=== PATIENT | female | born 1935 | race Caucasian/White ===

== ENCOUNTER → 2018-12-27 | Outpatient (CLI) | payer MEDICARE ==
[2018-12-27 17:41] LABS: BACTERIA,URINE NEGATIVE /HPF; BILIRUBIN,URINE NEGATIVE (NEGATIVE); CLARITY,URINE CLEAR; COLOR,URINE YELLOW; GLUCOSE, URINE (UA) NEGATIVE (NEGATIVE); KETONES,URINE NEGATIVE (NEGATIVE); LEUKOCYTE ESTERASE ,URINE NEGATIVE (NEGATIVE); NITRITE,URINE NEGATIVE (NEGATIVE); PROTEIN,URINE NEGATIVE (NEGATIVE); SQUAMOUS EPITHELIAL CELL,UR 0-2 /HPF; UROBILINOGEN,URINE 0.2 MG/DL (NORMAL); WBC,URINE 0-2 /HPF
== END ==
LOC: LAB FS 16:42
PROVIDERS: ATTEND Family Medicine
DX: R30.0 Dysuria (principal)
CPT/HCPCS: 81000

== ENCOUNTER → 2019-07-04 | Outpatient (CLI) | payer MEDICARE ==
[2019-07-04 15:42] LABS: EOSINOPHILS % (AUTO) 5 % (0-10); HEMATOCRIT 41 % (35-52); HEMOGLOBIN 13.3 G/DL (11.5-16.0); LYMPHOCYTES % (AUTO) 29 % (12-44); MEAN CORPUSCULAR HEMOGLOBIN 30 PG (25-34); MEAN CORPUSCULAR HGB CONC 33 G/DL (32-36); MEAN CORPUSCULAR VOLUME 92 FL (80-99); MEAN PLATELET VOLUME 10.3 FL (7.4-10.4); MONOCYTES % (AUTO) 7 % (0-12); NEUTROPHILS % (AUTO) 58 % (42-75); PLATELET COUNT 169 10^3/uL (130-400); RED CELL DISTRIBUTION WIDTH 12.4 % (10.0-14.5); WHITE BLOOD COUNT 5.9 10^3/uL (4.3-11.0)
[2019-07-04 15:43] LABS: BASOPHILS # (AUTO) 0.1 10^3/uL (0.0-0.1); BASOPHILS % (AUTO) 1 % (0-10); EOSINOPHILS # (AUTO) 0.3 10^3/uL (0.0-0.3); LYMPHOCYTES # (AUTO) 1.7 X 10^3 (1.0-4.0); MONOCYTES # (AUTO) 0.4 X 10^3 (0.0-1.0); NEUTROPHILS # (AUTO) 3.4 X 10^3 (1.8-7.8)
[2019-07-04 15:49] LABS: INR 1.9 (0.8-1.4); PROTHROMBIN TIME PATIENT 22.9 SEC (12.2-14.7)
[2019-07-04 15:52] LABS: BAND NEUTROPHILS 2 %; BASOPHILS % (MANUAL) 1 %; EOSINOPHILS % (MANUAL) 3 %; LYMPHOCYTES % (MANUAL) 32 %; MONOCYTES % (MANUAL) 9 %; NEUTROPHILS % (MANUAL) 53 %
[2019-07-04 15:55] LABS: POTASSIUM 4.5 MMOL/L (3.6-5.0)
[2019-07-04 15:56] LABS: BILIRUBIN,TOTAL 0.4 MG/DL (0.1-1.0); CALCIUM 10.4 MG/DL (8.5-10.1); CREATININE SERUM 1.04 MG/DL (0.60-1.30); TOTAL PROTEIN 6.3 GM/DL (6.4-8.2)
== END ==
LOC: LAB FS 15:20
PROVIDERS: ATTEND Nurse Practitioner Family
DX: Z51.81 Encounter for therapeutic drug level monitoring (principal); I48.0 Paroxysmal atrial fibrillation; I42.0 Dilated cardiomyopathy; Z79.01 Long term (current) use of anticoagulants
CPT/HCPCS: 36415; 80053; 85007; 85027; 85610

== ENCOUNTER 2019-07-13 15:28 | Inpatient (IN) | payer MEDICARE ==
[~2019-07-13] VITALS: Ht 149.5 cm; Wt 71.5 kg
[~2019-07-13 15:28] MED LIST: ALPR0.254 PO; AMLO10TA7 PO; ASCO-262 PO; ATOR40TA70 PO; CRAN500T2 PO; ENOX60DI7 SC; FURO20TA4 PO; LISI40TA PO; MULT1TAB69 PO; OMG1KC PO; PANT40TA3 PO; POLY17PO6 PO; SPIR25TA5 PO; TRAM50TA3 PO; TRM50T PO; UBID1CAP53 PO; WARF-48 PO
[2019-07-13 15:45] VITALS: BP 106/66
--- NOTE | 2019-07-13 15:45 | NUR ---
BENJAMIN OSBORNE admitted to room 222-1, with an admitting diagnosis of SEPSIS AND ISCHEMIC BOWEL DISEASE on 07/13/[address] [facility] [address] via WHEELCHAIR, accompanied by STAFF. BENJAMIN OSBORNE introduced to surroundings, call light, bed controls, phone, TV, temperature control, lights, meal times, smoking policy, visitor policy, side rail policy, bathrooms and showers. Patient Rights given to patient in the handbook.BENJAMIN OSBORNE verbalizes understanding that [facility] is not responsible for the loss or damage to any personal effects or valuables that are kept in the patients posession during their hospitalization. The following Patient Care Plans were discussed with the PT: Discharge Planning, IMPAIRED MOBILITY, AND FALLS. BENJAMIN OSBORNE verbalizes understanding of Interdisciplinary Patient Education. Patient received Patient Rights Booklet, which includes Privacy Act Statement and Data Collection Information Summary. [place] INTACT RIGHT AC. DENIES PAIN. DAUGHTER SABINA WAS CALLED TO DO ADMISSION QUESTIONS BECAUSE PATIENT UNABLE TO.
--- NOTE | 2019-07-13 16:18 | Physical Therapy Evaluation ---
PT Evaluation-General Medical Diagnosis Admission Date Jul 13, 2019 at 15:50 Medical Diagnosis: Enteritis and gastritis Onset Date: Jul 09, 2019 Therapy Diagnosis Therapy Diagnosis: debility/weakness Precautions Precautions/Isolations: Standard Precautions Referral Physician: Yang Reason for Referral: Evaluation/Treatment Medical History Pertinent Medical History: Dementia, HTN Current History transferred to [facility] Reviewed History: Yes Social History Home: Single Level Current Living Status: Children (daughter) Entry Into Home: Stairs With Railing PT Steps Into Home: 3 Prior Prior Level of Function SCALE: Activities may be completed with or without assistive devices. 1-Wkkevyytbp-vudgtud completes the activity by him/herself with no assistance from a helper. 5-Set-up or Clean-up Assistance-helper sets up or cleans up; patient completes activity. [place] assists only prior to or following the activity. 4-Supervision or Touching Assistance-helper provides verbal cues and/or touching/steadying and/or contact guard assistance as patient completes activity. Assistance may be provided throughout the activity or intermittently. 3-Partial/Moderate Assistance-helper does LESS THAN HALF the effort. [place] li fts, holds or supports trunk or limbs, but provides less than half the effort. 2-Substantial/Maximal Assistance-helper does MORE THAN HALF the effort. [place] lifts or holds trunk or limbs and provides more than half the effort. 7-Bksppgdzb-gpsfhv does ALL the effort. Patient does none of the effort to complete the activity. Or, the assistance of 2 or more helpers is required for the patient to complete the activity. If activity was not attempted, code reason: 7-Patient Refused. 9-Not Applicable-not attempted and the patient did not perform the activity before the current illness, exacerbation or injury. 10-Not Attempted due to Environmental Limitations-(lack of equipment, weather restraints, etc.). 88-Not Attempted due to Medical Conditions or Safety Concerns. Bed Mobility: 6 Transfers (B,C,W/C): 5 Gait: 5 Stairs: 3 Indoor Mobility (Ambulation): Needed Some Help Stairs: Needed Some Help Prior Devices Use: Walker Prior Device Use: FWW daughter assist with all mobility per patient report PT Evaluation-Current Subjective Patient is very agreeable to participate with therapy. Pain Numeric Pain Scale: 0-No Pain Location: No Pain Reported Objective Patient Orientation: Person, Confused ROM/Strength ROM Lower Extremities bilateral LE WFL Strength Lower Extremities 4/5 grossly bilateral LE Integumentary/Posture Integumentary refer to nursing notes Bowel Incontinence: No Bladder Incontinence: Yes Posture kyphotic posture Neuromuscular (Tone, Coordination, Reflexes) grossly intact Sensory Vision: Wears Glasses Hearing: Impaired Sensation Right Lower Extremit: Intact Sensation Left Lower Extremity: Intact Transfers Roll Left to Right (QC): 5 Sit to Lying (QC): 5 Lying to Sitting/Side of Bed(Q: 5 Sit to Stand (QC): 4 Chair/Hwk-hu-Bezdb Xfer(QC): 4 Toilet Transfer: 4 Car Transfer (QC): 5 Gait Does the Patient Walk?: Yes Mode of Locomotion: Walk Anticipated Mode of Locomotion: Walk Walk 10 feet (QC): 5 Walk 50 ft with 2 Turns(QC): 5 Walk 150 ft (QC): 5 Walking 10ft/uneven surface-QC: 4 Distance: 300' x 1/100' x 1 Gait Assistive Device: FWW Comments/Gait Description slow, steady, functional gait sequence Wheelchair Training Does the Pt Use a Wheelchair?: No Stairs #of Steps: 2 1 Step (curb) (QC): 3 4 Steps (QC): 88 12 Steps (QC): 9 Walking Assistive Device: Walker Balance Sitting Static: Normal Sitting Dynamic: Normal Standing Static: Normal Standing Dynamic: Normal Picking up an Object (QC): 5 Assessment/Needs 84 y.o. female, will be seen short term by skilled PT to address functional strength and mobility to ensure safe return to home at maximum LOF. Rehab Potential: Fair PT Tie Loader Goals Usp Goals PT Usp Goals Time Frame: Jul 29, 2019 Roll Left & Right (QC): 6 Sit to Lying (QC): 6 Lying-Sitting on Side/Bed(QC): 6 Sit to Stand (QC): 5 Chair/Mcn-tz-Nywfr Xfer(QC): 5 Toilet Transfer (QC): 5 Car Transfer (QC): 6 Does the Patient Walk: Yes Walk 10 feet (QC): 5 Walk 50ft with 2 Turns (QC): 5 Walk 150 ft (QC): 5 Walking 10ft on Uneven Surface: 5 1 Step (curb) (QC): 4 4 Steps (QC): 4 12 Steps (QC): 9 Picking up an Object (QC): 5 PT Plan Problem List Problem List: Activity Tolerance, Functional Strength, Safety, Balance, Bed Mobility Treatment/Plan Treatment Plan: Continue Plan of Care Treatment Plan: Bed Mobility, Concurrent Therapy, Education, Functional Activity Mynor, Functional Strength, Group Therapy, Gait, Safety, Therapeutic Exercise, Transfers Treatment Duration: Jul 29, 2019 Frequency: At least 5 of 7 days/Wk (IRF) Estimated Hrs Per Day: 1.5 hours per day Patient and/or Family Agrees t: Yes Safety Risks/Education Patient Education: Steps Teaching Recipient: Patient Teaching Methods: Demonstration, Discussion Response to Teaching: Verbalize Understanding, Return Demonstration Discharge Recommendations Therapy Discharge Recommendati: Home & Family Time/GCodes Time In: 1545 Time Out: 1608 Total Billed Treatment Time: 23 Total Billed Treatment 1 visit EVMod 23 min ANUPAMA CROFT PT Jul 13, 2019 16:18
--- NOTE | 2019-07-13 16:22 | NUR ---
REVIEWED MED REC IT WAS REPORTED UPON ADMISSION TO 4TH FLOOR. NO CHANGES WERE MADE WHEN THE PATIENT DISCHARGED TO REHAB.
[2019-07-13 16:34] VITALS: BP 106/66
[2019-07-13] MEDS ORDERED: CALCIUM CARBONATE 500 MG (TUMS) TAB.CHEW PO PRN ×2 (18:15)
[2019-07-13] MEDS ORDERED: MELATONIN 3 MG TABLET PO PRN ×2 (18:15)
[2019-07-13] MEDS ORDERED: BISACODYL 10 MG SUPP (DULCOLAX) PR PRN ×2 (18:15)
[2019-07-13] MEDS ORDERED: LACTULOSE SYRUP 10GM/15ML (ENULOSE) 30ML UDC PO PRN ×2 (18:15)
[2019-07-13] MEDS ORDERED: FLEET ENEMA ADULT 1 EA BTL PR PRN (18:15)
[2019-07-13] MEDS ORDERED: diphenhydrAMINE 50 MG/ML INJ (BENADRYL) IVP PRN (18:15)
[2019-07-13] MEDS ORDERED: ONDANSETRON 4 MG/2 ML (SDV) Z0FRAN IV PRN (18:15)
[2019-07-13] MEDS ORDERED: DOCUSATE SODIUM 100 MG (COLACE) CAP PO PRN (18:15)
[2019-07-13] MEDS ORDERED: diphenhydrAMINE 25 MG TAB (BENADRYL) PO PRN (18:15)
[2019-07-13] MEDS ORDERED: METOCLOPRAMIDE INJ 10 MG/2 ML (REGLAN) IVP PRN (18:15)
[2019-07-13] MEDS ORDERED: ANTACID SUSP 30 ML UDC (MYLANTA) PO PRN (18:15)
[2019-07-13] MEDS ORDERED: CATHETER FLUSH 10 ML SYR IV PRN (18:15)
[2019-07-13] MEDS ORDERED: ONDANSETRON 4 MG (ZOFRAN) ORAL DISSOLVE TAB PO PRN (18:15)
[2019-07-13] MEDS ORDERED: morphine INJ 10 MG/ML 1ML (SYR OR VIAL) IV PRN (18:15)
[2019-07-13] MEDS ORDERED: LOPERAMIDE 2 MG (IMODIUM) TABLET PO PRN (18:15)
[2019-07-13] MEDS ORDERED: MILK OF MAGNESIA 400 MG/5 ML 30 ML UDC PO PRN (18:15)
[2019-07-13] MEDS ORDERED: guaiFENesin/CODEINE (ROBITUSSIN AC) 10ML UDC PO PRN (18:15)
[2019-07-13] MEDS ORDERED: ALPRAZolam 0.25 MG (XANAX) TAB PO PRN (18:15)
[2019-07-13] MEDS ORDERED: morphine INJ 4 MG/ML 1 ML (VIAL/SYRINGE) IV PRN (18:45)
[2019-07-13] MEDS ORDERED: warFARin 5 MG (COUMADIN) TAB PO NR (18:45)
--- NOTE | 2019-07-13 19:22 | NUR ---
bedside report received from NEHEMIAH BOLTON, assume care of pt
[2019-07-13] MEDS: ALPRAZolam 0.25 MG (XANAX) TAB PO SCH (20:04)
[2019-07-13] MEDS: DOCUSATE SODIUM 100 MG (COLACE) CAP PO SCH (20:05)
--- NOTE | 2019-07-13 20:05 | NUR ---
took meds without difficulty, took scheduled ultram 50mg, rates pain o/10 on numeric scale, up to bathroom with 1 person standby assist & walker, bed alarm on, side rails up x4
[2019-07-13] MEDS: SENNA W/DOCUSATE (SENOKOT S) TABLET PO SCH (20:06)
--- NOTE | 2019-07-13 20:55 | NUR ---
resting quietly in bed, pain level 0/10 on flacc scale
[2019-07-13] MEDS ORDERED: NON-FORMULARY MEDICATION 1 EA EA (Ascorbate Calcium (Vitamin C) 500 MG) PO SCH (21:00)
[2019-07-13] MEDS ORDERED: NON-FORMULARY MEDICATION 1 EA EA (Cranberry Extract (Cranberry) 500 MG) PO SCH (21:00)
[2019-07-13] MEDS ORDERED: DOCUSATE SODIUM 100 MG (COLACE) CAP PO SCH (21:00)
[2019-07-13] MEDS ORDERED: VIT E ACETATE PO SCH (21:00)
[2019-07-13] MEDS ORDERED: UBIDECARENONE PO SCH (21:00)
[2019-07-13] MEDS ORDERED: [UNRECOGNIZED DRUG - OTHER] PO SCH (21:00)
[2019-07-13] MEDS ORDERED: polyethylene glycoL POWDER 17 GM (MIRALAX) PACK PO SCH (21:00)
[2019-07-14] MEDS: ACETAMINOPHEN 325 MG TABLET PO PRN (01:03)
--- NOTE | 2019-07-14 01:03 | NUR ---
c/o lt ear pain level 5/10 on numeric scale, Tylenol 650mg given, advised to lie on other side for a while
--- NOTE | 2019-07-14 01:45 | NUR ---
resting quietly in bed, pain level 0/10 on flacc scale
[2019-07-14 05:06] VITALS: BP 124/69
[2019-07-14] MEDS: ASCORBIC ACID (VIT C) 500 MG TABLET PO SCH ×2 (06:46→17:14)
[2019-07-14 07:38] LABS: BASOPHILS % (AUTO) 0 % (0-10); EOSINOPHILS # (AUTO) 0.4 10^3/uL (0.0-0.3); EOSINOPHILS % (AUTO) 7 % (0-10); HEMATOCRIT 36 % (35-52); LYMPHOCYTES # (AUTO) 1.7 X 10^3 (1.0-4.0); LYMPHOCYTES % (AUTO) 31 % (12-44); MEAN CORPUSCULAR HEMOGLOBIN 30 PG (25-34); MEAN CORPUSCULAR HGB CONC 33 G/DL (32-36); MEAN CORPUSCULAR VOLUME 90 FL (80-99); MEAN PLATELET VOLUME 9.8 FL (7.4-10.4); MONOCYTES # (AUTO) 0.5 X 10^3 (0.0-1.0); MONOCYTES % (AUTO) 10 % (0-12); NEUTROPHILS # (AUTO) 2.8 X 10^3 (1.8-7.8); NEUTROPHILS % (AUTO) 52 % (42-75); PLATELET COUNT 128 10^3/uL (130-400); RED CELL DISTRIBUTION WIDTH 13.1 % (10.0-14.5); WHITE BLOOD COUNT 5.3 10^3/uL (4.3-11.0)
[2019-07-14 07:48] LABS: INR 1.1 (0.8-1.4); PROTHROMBIN TIME PATIENT 14.7 SEC (12.2-14.7)
[2019-07-14 07:56] LABS: ALANINE AMINOTRANSFERASE 41 U/L (0-55); ALBUMIN 3.1 GM/DL (3.2-4.5); ALKALINE PHOSPHATASE 60 U/L (40-136); BILIRUBIN,TOTAL 0.3 MG/DL (0.1-1.0); BUN/CREATININE RATIO 25; CALCIUM 9.2 MG/DL (8.5-10.1); CARBON DIOXIDE 25 MMOL/L (21-32); CHLORIDE 109 MMOL/L (98-107); CREATININE SERUM 0.76 MG/DL (0.60-1.30); GFR ESTIMATED > 60; GLUCOSE 97 MG/DL (70-105); SODIUM 139 MMOL/L (135-145)
--- NOTE | 2019-07-14 09:01 | Physical Therapy Daily Note ---
PT Daily Note-Current Subjective Patient in bed pre tx, agrees to PT, has no complaints of pain. Appearance Patient in restroom on toilet post tx, has nurse call, instructed to call nurse when done and to not get up by herself. Mental Status Patient Orientation: Person Transfers SCALE: Activities may be completed with or without assistive devices. 4-Cggeliyuxl-ceisxnr completes the activity by him/herself with no assistance from a helper. 5-Set-up or Clean-up Assistance-helper sets up or cleans up; patient completes activity. [place] assists only prior to or following the activity. 4-Supervision or Touching Assistance-helper provides verbal cues and/or touching/steadying and/or contact guard assistance as patient completes activity. Assistance may be provided throughout the activity or intermittently. 3-Partial/Moderate Assistance-helper does LESS THAN HALF the effort. [place] lifts, holds or supports trunk or limbs, but provides less than half the effort. 2-Substantial/Maximal Assistance-helper does MORE THAN HALF the effort. [place] lifts or holds trunk or limbs and provides more than half the effort. 8-Qvcbkqxgy-tyfful does ALL the effort. Patient does none of the effort to complete the activity. Or, the assistance of 2 or more helpers is required for the patient to complete the activity. If activity was not attempted, code reason: 7-Patient Refused. 9-Not Applicable-not attempted and the patient did not perform the activity before the current illness, exacerbation or injury. 10-Not Attempted due to Environmental Limitations-(lack of equipment, weather restraints, etc.). 88-Not Attempted due to Medical Conditions or Safety Concerns. Roll Left & Right (QC): 6 Lying to Sitting/Side of Bed(Q: 6 Sit to Stand (QC): 4 Chair/Pgn-dg-Kwuoj Xfer(QC): 4 SBA for sit to stand and transfers, cues for hand placement and positioning Gait Training Distance: 200', 120' Walk 10 feet (QC): 4 Walk 50 ft with 2 Turns(QC): 4 Walk 150 ft (QC): 4 Gait Assistive Device: FWW SBA, slow but steady ambulation, cues for direction Exercises Standing: Hip Abduction, Heel/toe raises, Marching, Mini squats Standing Reps: 15 LAQ alternating for 5 min NuStep Minutes: 15 NuStep Workload: 4 Treatments bed mobility and transfers, ambulation, LE strengthening Assessment Current Status: Fair Progress improving endurance PT Mcfp Goals Mcfp Goals PT Mcfp Goals Time Frame: Jul 29, 2019 Roll Left & Right (QC): 6 Sit to Lying (QC): 6 Lying-Sitting on Side/Bed(QC): 6 Sit to Stand (QC): 5 Chair/Rim-pl-Aeydd Xfer(QC): 5 Toilet Transfer (QC): 5 Car Transfer (QC): 6 Does the Patient Walk: Yes Walk 10 feet (QC): 5 Walk 50ft with 2 Turns (QC): 5 Walk 150 ft (QC): 5 Walking 10ft on Uneven Surface: 5 1 Step (curb) (QC): 4 4 Steps (QC): 4 12 Steps (QC): 9 Picking up an Object (QC): 5 PT Plan Problem List Problem List: Activity Tolerance, Functional Strength, Safety, Balance, Gait, Transfer, Bed Mobility Treatment/Plan Treatment Plan: Continue Plan of Care Treatment Plan: Bed Mobility, Concurrent Therapy, Education, Functional Activity Mynor, Functional Strength, Group Therapy, Gait, Safety, Therapeutic Exercise, Transfers Treatment Duration: Jul 29, 2019 Frequency: At least 5 of 7 days/Wk (IRF) Estimated Hrs Per Day: 1.5 hours per day Patient and/or Family Agrees t: Yes Safety Risks/Education Patient Education: Gait Training, Transfer Techniques, Correct Positioning, Safety Issues Teaching Recipient: Patient Teaching Methods: Demonstration, Discussion Response to Teaching: Reinforcement Needed Time/GCodes Time In: 0800 Time Out: 0900 Total Billed Treatment Time: 60 Total Billed Treatment 1 visit GT 20' EX 30' FA 10' CLAUDETTE VILLAFANA PT Jul 14, 2019 09:01
[2019-07-14] MEDS: MULTIVIT W/MINERALS TAB (THERAGRAN M) PO SCH (09:07)
[2019-07-14] MEDS: OMEGA 3 (FISH OIL) 1000 MG CAP PO SCH (09:07)
[2019-07-14] MEDS: lisINopril 40 MG (PRINIVIL) TABLET PO SCH (09:08)
[2019-07-14] MEDS: DOCUSATE SODIUM 100 MG (COLACE) CAP PO SCH ×2 (09:08→20:36)
[2019-07-14] MEDS: PANTOPRAZOLE 40 MG (PROTONIX) TAB PO SCH (09:08)
[2019-07-14] MEDS: SENNA W/DOCUSATE (SENOKOT S) TABLET PO SCH ×2 (09:08→20:36)
[2019-07-14] MEDS: FUROSEMIDE 20 MG (LASIX) TAB PO SCH (09:08)
[2019-07-14] MEDS: SPIRONOLACTONE 25 MG (ALDACTONE) TAB PO SCH (09:09)
[2019-07-14] MEDS: polyethylene glycoL POWDER 17 GM (MIRALAX) PACK PO SCH (09:09)
--- NOTE | 2019-07-14 09:46 | PM&R Post Admission Assessment ---
PM&R HP Date of Visit: Jul 14, 2019 Time of Visit: 12:00 History of Present Illness Chief complaint: Debility with myopathy History of present illness: This is an 84-year-old white female clinic patient of [facility] who was admitted for abdominal pain and sepsis placed on empiric antibiotics of meropenem due to allergy list in general surgery was consulted who placed her nothing by mouth and provided supportive care. Patient underwent EGD and colonoscopy which were all within normal limits. Coumadin was restarted and Lovenox was initiated for bridging until INR therapeutic. Patient with significant weakness and lives at home with daughter so she is requiring structured physical therapy in order to regain enough ADLs and ambulation in order to return home with daughter. Per EGD/Colon report: The patient tolerated the procedure well. We feel that most likely etiology of her symptoms was some form of viral illness causing nausea as well as enteritis and abdominal pain and also significant nausea; however, she had difficulty with vomiting due to her previous antireflux procedure. Since being admitted and IV hydrated and placed on antibiotics as well as a PPI acid roading engineer, she has improved. We will advance her diet as tolerated and we will also recommend taking PPI acid roading engineer daily. Past Akspikc-Chfdvl-Anzoxt Hx Past Med/Social Hx: Reviewed Nursing Past Med/Soc Hx, Reviewed and Corrections made Patient Social History Marrital Status: single Employed/Student: retired Alcohol Use: Denies Use Recreational Drug Use: No Smoking Status: Never a Smoker 2nd Hand Smoke Exposure: No Physical Abuse Screen: No Sexual Abuse: No Recent Foreign Travel: No Contact w/other who traveled: No Recent Hopitalizations: Yes (ISCHEMIC BOWEL 1-20) Recent Infectious Disease Expo: No Immunizations Up To Date Tetanus Booster (TDap): Less than 5yrs Pediatric: Yes Date of Pneumonia Vaccine: Jul 13, 2014 Date of Influenza Vaccine: Mar 14, 2020 Seasonal Allergies Seasonal Allergies: Yes (pollen) Past Medical History Surgeries: Hysterectomy Currently Using CPAP: No Currently Using BIPAP: No Cardiac: High Cholesterol, Hypertension Neurological: Dementia : No Reproductive: Yes (hysterectomy 34 years ago) Sexually Transmitted Disease: No HIV/AIDS: No Genitourinary: Bladder Infection Gastrointestinal: Colitis ischemic bowel disease Musculoskeletal: Degenerate Disk Disease, Arthritis Loss of Vision: Bilateral Hearing Impairment: Hard of Hearing Did You Recieve Any Treatments: No History of Blood Disorders: Yes (patient is on Coumadin because of ischemic bowel disease and arterial embol) Family History FH: breast cancer DAUGHTER FH: lung cancer 19 MOTHER FH: skin cancer G8 BROTHER Myocardial infarction 19 FATHER Heart Disease, Cancer Prior Level of Function Bed Mobility: 6 Transfers: 5 Gait: 5 Stairs: 3 Indoor Mobility (Ambulation): Needed Some Help Stairs: Needed Some Help Prior Devices Use: Walker FWW Current Level of Fuctioning Roll Left to Right: 6 Sit to Lyin Lying to Sitting/Side of Bed: 6 Sit to Stand: 4 Chair/Xli-xj-Surte Xfer: 4 Car Transfer: 5 Does the Patient Walk: Yes Mode of Locomotion: Walk Anticipated Mode of Locomotion: Walk Walk 10 feet: 4 Walk 50 ft with 2 Turns: 4 Walk 150 ft: 4 Walking 10ft on uneven surface: 4 Gait Assistive Device: FWW Does the Pt Use a Wheelchair: No #of Steps: 2 1 Step (curb): 3 4 Steps: 88 Walking Assistive Device: Walker 12 Steps: 9 Picking up an Object: 5 PM&R Allergy/Meds/Data Review Allergies Coded Allergies: Penicillins (Unverified Allergy, Unknown, 07/14/19) Sulfa (Sulfonamide Antibiotics) (Unverified Allergy, Unknown, 07/14/19) celecoxib (Verified Allergy, Unknown, 07/09/19) tetracycline (Unverified Allergy, Unknown, 07/14/19) Home Medications Scheduled Alprazolam (Alprazolam), 0.25 MG PO HS, (Reported) Amlodipine Besylate (Amlodipine Besylate), 10 MG PO 1800, (Reported) Ascorbate Calcium (Vitamin C), 500 MG PO BID, (Reported) Atorvastatin Calcium (Atorvastatin Calcium), 40 MG PO DAILY, (Reported) Cranberry Extract (Cranberry), 500 MG PO BID, (Reported) Furosemide (Furosemide), 20 MG PO DAILY, (Reported) Lisinopril (Lisinopril), 40 MG PO DAILY, (Reported) Multivitamin (Multivitamins), 1 TAB PO DAILY, (Reported) Barton 3 Polyunsat Fatty Acids (Fish Oil 1,000 mg Capsule), 1,000 MG PO DAILY, (Reported) Pantoprazole Sodium (Pantoprazole Sodium), 40 MG PO DAILY, (Reported) Polyethylene Glycol 3350 (Miralax), 17 GM PO DAILY, (Reported) Spironolactone (Spironolactone), 12.5 MG PO DAILY, (Reported) Tramadol HCl (Tramadol HCl), 50 MG PO TID, (Reported) Ubidecarenone/Vit E Acetate (Co Q-10 100 mg Softgel), 100 MG PO BID, (Reported) Warfarin Sodium (Warfarin Sodium), 5 MG PO 1800, (Reported) Scheduled PRN Tramadol HCl (Tramadol HCl), 50 MG PO DAILY PRN for PAIN-MODERATE (5-7), (Reported) Current Medications Current Medications Reviewed Laboratory Data Laboratory Tests 07/14/19 07:25: White Blood Count 5.3, Red Blood Count 4.02L, Hemoglobin 12.0, Hematocrit 36, Mean Corpuscular Volume 90, Mean Corpuscular Hemoglobin 30, Mean Corpuscular Hemoglobin Concent 33, Red Cell Distribution Width 13.1, Platelet Count 128L, Mean Platelet Volume 9.8, Neutrophils (%) (Auto) 52, Lymphocytes (%) (Auto) 31, Monocytes (%) (Auto) 10, Eosinophils (%) (Auto) 7, Basophils (%) (Auto) 0, Neutrophils # (Auto) 2.8, Lymphocytes # (Auto) 1.7, Monocytes # (Auto) 0.5, Eosinophils # (Auto) 0.4H, Basophils # (Auto) 0.0, Prothrombin Time 14.7, INR Comment 1.1, Sodium Level 139, Potassium Level 4.0, Chloride Level 109H, Carbon Dioxide Level 25, Anion Gap 5, Blood Urea Nitrogen 19H, Creatinine 0.76, Estimat Glomerular Filtration Rate > 60, BUN/Creatinine Ratio 25, Glucose Level 97, Calcium Level 9.2, Corrected Calcium 9.9, Total Bilirubin 0.3, Aspartate Amino Transf (AST/SGOT) 48H, Alanine Aminotransferase (ALT/SGPT) 41, Alkaline Phosphatase 60, Total Protein 5.0L, Albumin 3.1L Review of Systems Constitutional: see HPI, malaise, weakness Psychiatric/Neurological: Anxiety, Depressed, Weakness Physical Exam Physical Exam Vital Signs Vital Signs - First Documented 07/13/19 15:45 Temp 37.8 Pulse 71 Resp 20 B/P (MAP) 106/66 (79) Pulse Ox 96 O2 Delivery Room Air Capillary Refill : Less Than 3 Seconds Height, Weight, BMI Height: '" Weight: lbs. oz. kg; 28.14 BMI Method: General Appearance: No Apparent Distress, WD/WN, Chronically ill, Thin, Other (frail) Eyes: Bilateral Eye Normal Inspection, Bilateral Eye PERRL HEENT: PERRL/EOMI, Normal ENT Inspection, Pharynx Normal Neck: Full Range of Motion, Normal Inspection, Non Tender, Supple, Carotid Bruit Respiratory: Chest Non Tender, Lungs Clear, Normal Breath Sounds, No Accessory Muscle Use, No Respiratory Distress Cardiovascular: Regular Rate, Rhythm, No Edema, No Gallop, No JVD, No Murmur, Normal Peripheral Pulses Gastrointestinal: Normal Bowel Sounds, No Organomegaly, No Pulsatile Mass, Non Tender, Soft Back: Normal Inspection, No CVA Tenderness, No Vertebral Tenderness Extremity: Normal Capillary Refill, Normal Inspection, Normal Range of Motion, Non Tender, No Calf Tenderness, No Pedal Edema Neurologic/Psychiatric: Alert, Oriented x3, No Motor/Sensory Deficits, Normal Mood/Affect, emergency room physician II-XII Norm as Tested, Disoriented (subtle), Motor Weakness (generalized weakness all extremities) Skin: Normal Color, Warm/Dry Lymphatic: No Adenopathy PM&R Medical Assessment & Plan REHAB/MEDICAL ASSESSMENT AND PLAN: REHAB IMPAIRMENT GROUP: Debility ETIOLOGIC DIAGNOSIS: Debility with ischemic bowel The comorbidities that impact the patients function and/or functional outcome by: Advanced age, frail status, fall risk, Coumadin anticoagulation therapeutic yet requiring Lovenox bridge REHAB PLAN: The patient is being admitted to our comprehensive inpatient rehabilitation facility and can tolerate the intensity of service consisting of at least: 180 minutes of therapy a day, 5 out of 7 days a week Rehab treatment will consist of: PT and OT and speech therapy will focus on regaining enough independent ADLs and ambulation in order to return home with daughter The patient/family has a good understanding of our discharge process and will benefit from an interdisciplinary inpatient rehabilitation program. The patient has potential to make improvement and is in need of at least two of the following multidisciplinary therapies including but not limited to physical, occupational, speech, and prosthetics and orthotics. Additionally the patient will need services from respiratory, nutritional services, wound care, psychology, etc. (Customize this to each patient). Given the patients complex condition and risk of further medical complications, rehabilitation services cannot be safely or effectively provided at a lower level of care such as a [facility] facility. BARRIERS TO DISCHARGE: Dementia ESTIMATED LOS: 7 days DISPOSITION: Home with daughter RELEVANT CHANGES SINCE PREADMISSION SCREENING: I have compared the patients medical and functional status at the time of the preadmission screening and there are: no changes PROGNOSIS: Good REHABILITATION GOALS: 1. PT and OT and ST will focus on regaining enough ADLs and ambulation order return home to prior level of functioning All the above goals were reviewed with the patient and he/she is in agreement. By signing this document, I acknowledge that I have personally performed a full physical examination on this patient within 24 hours of admission to this [facility] and have determined the patient to be able to tolerate the above course of treatment at an intensive level for a reasonable period of time. I will be completing a detailed individualized Plan of Care for this patient by day #4 of the patients stay based upon the Preadmission Screen, the Post-Admission Evaluation, and the therapy evaluations. Admission Dx/Comorbidities: (1) Myopathy ICD Codes: G72.9 - Myopathy, unspecified (2) Ischemic bowel disease Status: Acute ICD Codes: K55.9 - Vascular disorder of intestine, unspecified (3) Dementia Status: Acute ICD Codes: F03.90 - Unspecified dementia without behavioral disturbance (4) Warfarin prescribed at discharge ICD Codes: Z78.9 - Other specified health status ROBERT WEBSTER DO Jul 14, 2019 09:45
[2019-07-14] MEDS: RT-ALBUTEROL SULF 2.5 MG/3 ML PRE-MIX VIAL INH SCH ×2 (09:56→19:47)
--- NOTE | 2019-07-14 10:16 | Occupational Therapy Eval ---
OT Evaluation-General/PLF Medical Diagnosis Admission Date Jul 13, 2019 at 15:50 Medical Diagnosis: Enteritis and gastritis Onset Date: Jul 09, 2019 Therapy Diagnosis Therapy Diagnosis: Decreased ADL function/ debility Precautions Precautions/Isolations: Fall Prevention, Standard Precautions Safety Interventions: Bed Exit Alarm, Reorient-PRN Weight Bear Status Weight Bearing Restriction: Weight Bearing/Tolerated Referral Physician: Yang Referral Reason: Activity Tolerance, Self Care, Evaluation/Treatment, Strengthening/ROM Medical History Pertinent Medical History: Arthritis, Dementia, HTN Additional Medical History dementia, HTN, DDD, bilateral vision loss, [place] arthritis Current History Pt has ischemic bowel and sepsis, pt states she isn't sure what is going on with her. Pt requires education for dx. Reviewed History: Yes Social History Home: Single Level Current Living Status: Children (daughter) Entry Into Home: Stairs With Railing Steps Into Home: 3 ADL-Prior Level of Function SCALE: Activities may be completed with or without assistive devices. 9-Ouelgzmfzo-weqeava completes the activity by him/herself with no assistance from a helper. 5-Set-up or Clean-up Assistance-helper sets up or cleans up; patient completes activity. [place] assists only prior to or following the activity. 4-Supervision or Touching Assistance-helper provides verbal cues and/or touching/steadying and/or contact guard assistance as patient completes activity. Assistance may be provided throughout the activity or intermittently. 3-Partial/Moderate Assistance-helper does LESS THAN HALF the effort. [place] lifts, holds or supports trunk or limbs, but provides less than half the effort. 2-Substantial/Maximal Assistance-helper does MORE THAN HALF the effort. [place] lifts or holds trunk or limbs and provides more than half the effort. 4-Vbadmvkkb-pryney does ALL the effort. Patient does none of the effort to complete the activity. Or, the assistance of 2 or more helpers is required for the patient to complete the activity. If activity was not attempted, code reason: 7-Patient Refused. 9-Not Applicable-not attempted and the patient did not perform the activity before the current illness, exacerbation or injury. 10-Not Attempted due to Environmental Limitations-(lack of equipment, weather restraints, etc.). 88-Not Attempted due to Medical Conditions or Safety Concerns. ADL PLOF Comments Pt states she has lived with daughter for "awhile," daughter assists with hooking bra, shower transfers, showering tasks, and IADLs. Self Care: Needed Some Help Functional Cognition: Needed Some Help DME/Equipment: Bath Bench, Grab Bars, Tub/Shower, Toilet/Riser DME/Equipment Comments Pt states she goes to her own home for shower tasks as daughter does not have shower. Pt states she has tub/ shower with grab bars and bench. Pt states at daughters home she has high rise toilet with arm rests. Utilizes 2WW at home. Occupation: retired Drive Self: No Leisure Interests: TV, wathcing children (daughter babysits) OT Current Status Subjective Pt denies pain, agreeable to OT tx session. Pt states she has been feeling very weak/ tired, requires explanation from nursing for dx. Pt states understanding, states no pain but some confusion. Mental Status/Objective Patient Orientation: Person, Situation Current Glasses/Contacts: Yes Hearing Aids: No Dentures/Partials: No Hand Dominance: Right Upper Extremity ROM WFL BUE, limited to 90* flexion,. Upper Extremity Coordination WFL, increased time Upper Extremity Sensation WFL Upper Extremity Strength Decreased bilaterally. Edema: BLE slight edema. ADL-Treatment Eating (QC): 6 Oral Hygiene (QC): 5 Shower/Bathe Self (QC): 4 (SBA/ s/u for sponge bath tasks. Pt able to complete all areas with thoroughness) Upper Body Dressing (QC): 5 Lower Body Dressing (QC): 4 (Pt completes with SBA/ CGA in stance.) On/Off Footwear (QC): 6 (IND in recliner chair.) Toileting Hygiene (QC): 4 (CGA in stance with walker) Other Treatments Pt agreeable to OT eval/ treat. Pt completes history, increased time needed. Pt demonstrates slight confusion with some questions, states her memory is poor. Pt educated on dx and effects on memory. Pt repeats self at times through session. Pt completes UE movement, states min pain in R shoulder during flexion. OT role and ARU expectations explained, pt nods in understanding. Pt completes sponge bath/ dressing in ARU clothes in recliner chair with s/u, SBA/ CGA. Pt sit to stands with SBA to walker. Pt completes oral hygiene in chair with s/u. Pt states no issues with eating, able to bring drink/ straw to mouth. Pt problem solves through sock donning and other obstacles within environment with success. Pt eduated on HEP/ theraband exercise, pt completes 5 reps of 3/5 exercises with demonstration and mod cues for positioning. Pt has decreased strength/ endurance. Pt requires min cues for directionality during ambulation to gym, pt walks with SBA. Pt completes 5 min on arm bike with min resistance, no breaks needed. Pt returns to room, utilizes bathroom. Pt has difficulty describing home lay-out, able to state agreement/ not with items within bathroom. Pt returns to recliner chair, pt educated on use of call light / TV remote. Pt agrees, states she needs a reminder to tell daughter to bring clothes. Pt given piece of paper for note writing. Pt left in recliner, all needs met, call light in reach. Education OT Patient Education: Exercise program, Home exercise program, Modified ADL techniques, Progress toward Goal/Update tx plan, Purpose of tx/functional activities, Rehab process, Safety issues Teaching Recipient: Patient Teaching Methods: Demonstration, Discussion Response to Teaching: Verbalize Understanding, Return Demonstration, Reinforcement Needed OT Short Term Goals Short Term Goals Toileting hygiene: 5 Upper body dressin OT Fabrication Machine Operator Goals Fabrication Machine Operator Goals Eating (QC): 6 Oral Hygiene (QC): 6 Toileting Hygiene (QC): 6 Shower/Bathe Self (QC): 4 Upper Body Dressing (QC): 6 Lower Body Dressing (QC): 6 On/Off Footwear (QC): 6 Additional Goals: 1-Demonstrate ADL Tasks, 2-Verbalize Understanding, 3- ImproveStrength/Mynor 1=Demonstrate adherence to instructed precautions during ADL tasks. 2=Patient will verbalize/demonstrate understanding of assistive devices/modifications for ADL. 3=Patient will improve strength/tolerance for activity to enable patient to perform ADL's. OT Education/Plan Problem List/Assessment Assessment: Decreased Activ Tolerance, Decreased UE Strength, Impaired Cognition, Impaired I ADL's, Impaired Self-Care Skills Discharge Recommendations Plan/Recommendations: Continue POC Therapy Discharge Recommendati: Home & Family Treatment Plan/Plan of Care Treatment,Training & Education: Yes Patient would benefit from OT for education, treatment and training to promote independence in ADL's, mobility, safety and/or upper extremity function for ADL's. Plan of Care: ADL Retraining, Caregiver Training, Cognitive Retraining, Functional Mobility, Group Exercise/Act as Ind, UE Funct Exercise/Act Treatment Duration: Jul 28, 2019 Frequency: At least 5 of 7 days/Wk (IRF) Estimated Hrs Per Day: 1.5 hours per day Agreement: Yes Rehab Potential: Fair Time/GCodes Start Time: 09:00 Stop Time: 10:30 Total Time Billed (hr/min): 90 Billed Treatment Time 1, EVM (15), ADL 4 (60), EX (15)= 90 ALBERTO CALIXTO OTR Jul 14, 2019 10:16
[2019-07-14] MEDS: ENOXAPARIN 60 MG/0.6 ML (LOVENOX) SYR SC SCH ×2 (11:52→20:35)
--- NOTE | 2019-07-14 13:26 | ST Cognitive Linguistic Eval ---
Speech Evaluation-General Medical Diagnosis Enteritis and gastritis Onset Date: Jul 09, 2019 Therapy Diagnosis Therapy Diagnosis: Cognitive-communication Referral Referring Physician: Dr. Soria Reason for Referral: Evaluation/Treatment Medical History Pertinent Medical History: Arthritis, Dementia, HTN Reviewed History: Yes Social History Current Living Status: Children (daughter) Speech PLF-Current Status Prior Level of Function Patient reports that she lives at home with her daughter where she takes care of medications and bills. Subjective Patient was alert and cooperative for all evaluation tasks. Patient reported that she is feeling a little confused today. Patient was sitting upright in her chair for the duration of the evaluation. Language Eval: Auditory Comprehends Simple Yes/No Ques: Functional Indent/Objects Multiple Haines: Functional Ident/Pics in Multiple Haines: Functional Follows 1-Step Commands: Functional Follows Complex Directions: Mild Follows General Conversations: Functional Language Eval: Verbal Language Completes Spontaneous Greeting: Functional Produces Auto, Serial Info: Mild Imitates Simple Words/Phrases: Functional Word Finding: Mild Requests Basic Needs: Functional States Basic Personal Info: Functional Expresses Complex Ideas: Mild Objective Cognitive Domain Attention: Mild Memory: Moderate Problem Solving: Moderate Executive Functions: Mild Visuospatial Skills: WNL Composite Severity Rating: Moderate Clock Drawing Severity Rating: WNL Objective Formal/Standardized Tests [facility] Mental Status (UMS) Examination was administered. Results The patient was administered the SLUMS and scored 18/30 which falls within the moderate level of cognitive function. Oral Motor/Speech Production Within functional limits. Impression Patient was admitted to the ARU s/p gastritis. Patient was administered the SLUMS and scored 18/30 which is within the moderate level of cognitive deficits. Patient reports that she has been confused upon entering the hospital and would benefit from receiving skilled ST therapy. Patient will receive skilled ST therapy to address deficits in the areas of problem-solving, memory, and safety awareness to promote safety in ADL's and communicating wants/needs. Speech Patient Assess Expression of Ideas/Wants: Exhibits (3) Understanding Verbal Content: Usually Understands (3) Brief Interview-Mental Status: Yes Repetition of Three Words: Three (3) Temporal Orientation: Year: Correct (3) Temporal Orientation: Month: Accurate within 5 days(2) Temporal Orientation: Day: Incorrect or No Answer(0) Recall : Wear to say "Sock": Yes,after cueing (1) Recall : Color: No, could not recall (0) Recall : Bed: No, could not recall (0) Memory/Recall Ability: Current season, That he or she is in a hsp/hsp unit Speech Short Term Goals Short Term Goals Short Term Goals 1. Patient will complete memory tasks with 90% accuracy with minimal cues. 2. Patient will complete problem-solving tasks with 90% accuracy with minimal cues. 3. Patient will complete safety awareness tasks with 90% accuracy with minimal cues. Speech [place] Clerk Goals [place] Clerk Goals Patient will improve cognitive-communication necessary for safety and daily living tasks with minimal assist. Speech-Plan Patient/Family Goals Patient/Family Goals: Patient reported that she wishes to return home to previous level of independence and mobility. Treatment Plan Speech Therapy Treatment Plan: Continue Plan of Care Treatment Duration: Jul 21, 2019 Frequency: 5 times per week Estimated Hrs Per Day: .5 hour per day Rehab Potential: Fair Barriers to Learning: Moderate cognitive deficits Pt/Family Agrees to Plan: Yes Safety Risks/Education Teaching Recipient: Patient Teaching Methods: Demonstration, Discussion Response to Teaching: Verbalize Understanding, Reinforcement Needed Education Topics Provided: Patient was educated on evaluation tasks and the benefits of skilled ST therapy in the ARU. Time Speech Therapy Time In: 10:45 Speech Therapy Time Out: 11:00 Total Billed Time: 15 Billed Treatment Time 1, LILY Harrison Jul 14, 2019 13:26
--- NOTE | 2019-07-14 13:26 | Physical Therapy Daily Note ---
PT Daily Note-Current Subjective Patient in recliner pre tx, agrees to PT, has no complaints of pain. Appearance Patient in restroom on toilet post tx, has nurse call, instructed to call nurse when done. Mental Status Patient Orientation: Person, Place Transfers SCALE: Activities may be completed with or without assistive devices. 5-Vsmibnuwzd-esdynde completes the activity by him/herself with no assistance from a helper. 5-Set-up or Clean-up Assistance-helper sets up or cleans up; patient completes activity. [place] assists only prior to or following the activity. 4-Supervision or Touching Assistance-helper provides verbal cues and/or touching/steadying and/or contact guard assistance as patient completes activity. Assistance may be provided throughout the activity or intermittently. 3-Partial/Moderate Assistance-helper does LESS THAN HALF the effort. [place] lifts, holds or supports trunk or limbs, but provides less than half the effort. 2-Substantial/Maximal Assistance-helper does MORE THAN HALF the effort. [place] lifts or holds trunk or limbs and provides more than half the effort. 9-Esmvpyocp-ayeqyo does ALL the effort. Patient does none of the effort to complete the activity. Or, the assistance of 2 or more helpers is required for the patient to complete the activity. If activity was not attempted, code reason: 7-Patient Refused. 9-Not Applicable-not attempted and the patient did not perform the activity before the current illness, exacerbation or injury. 10-Not Attempted due to Environmental Limitations-(lack of equipment, weather restraints, etc.). 88-Not Attempted due to Medical Conditions or Safety Concerns. Sit to Stand (QC): 4 Chair/Xiu-rr-Wsrgd Xfer(QC): 4 SBA, cues for hand placement, tends to stand without using armrests. Gait Training Distance: 200', 120' Walk 10 feet (QC): 4 Walk 50 ft with 2 Turns(QC): 4 Walk 150 ft (QC): 4 Gait Persons Needed: 1 Gait Assistive Device: FWW SBA, slow, fatigues quickly. Exercises sit to stand 2 sets of 5, sidestepping at parallel bars 8'x4 Treatments ambulation, transfers, LE exercise Assessment Current Status: Fair Progress needs cues for hand placement and safety, slow movement, fatigues quickly PT Fci Goals Fci Goals PT Senior Underwriter Goals Time Frame: Jul 29, 2019 Roll Left & Right (QC): 6 Sit to Lying (QC): 6 Lying-Sitting on Side/Bed(QC): 6 Sit to Stand (QC): 5 Chair/Veu-le-Dlkut Xfer(QC): 5 Toilet Transfer (QC): 5 Car Transfer (QC): 6 Does the Patient Walk: Yes Walk 10 feet (QC): 5 Walk 50ft with 2 Turns (QC): 5 Walk 150 ft (QC): 5 Walking 10ft on Uneven Surface: 5 1 Step (curb) (QC): 4 4 Steps (QC): 4 12 Steps (QC): 9 Picking up an Object (QC): 5 PT Plan Problem List Problem List: Activity Tolerance, Functional Strength, Safety, Balance, Gait, Transfer, Bed Mobility, ROM Treatment/Plan Treatment Plan: Continue Plan of Care Treatment Plan: Bed Mobility, Concurrent Therapy, Education, Functional Activity Mynor, Functional Strength, Group Therapy, Gait, Safety, Therapeutic Exercise, Transfers Treatment Duration: Jul 29, 2019 Frequency: At least 5 of 7 days/Wk (IRF) Estimated Hrs Per Day: 1.5 hours per day Patient and/or Family Agrees t: Yes Safety Risks/Education Patient Education: Gait Training, Transfer Techniques, Correct Positioning, Safety Issues Teaching Recipient: Patient Teaching Methods: Demonstration, Discussion Response to Teaching: Reinforcement Needed Time/GCodes Time In: 1300 Time Out: 1330 Total Billed Treatment Time: 30 Total Billed Treatment 1 visit EX 10' GT 20' CLAUDETTE VILLAFANA PT Jul 14, 2019 13:25
--- NOTE | 2019-07-14 15:15 | NUR ---
RD ASSESSMENT PMHx: hypercholesterolemia; HTN; arthritis PT INTERACTION: Pt was awake and pleasant during nutrition assessment. Pt states current appetite is poor and that her appetite is usually poor at home. Note avg PO intake of 100% s5mveui, per chart review. Pt states following a regular diet at home, and has no issues with chewing/swallowing food. Pt states no recent issues with n/v at this time. Pt states recent issues with constipation, and that she is unsure of when her last BM was. Note pt currently on bowel regimen of miralax qd; senna BID; and colace BID, per chart review. Pt states recent wt loss, but unsure of amount/timeframe. She states "it's just a little bit." Note unable to determine recent wt hx, per chart review. Note abnormal lab values for protein and albumin, per chart review. ABNORMAL NUTRITION-RELATED LAB VALUES LOW: Pro 5.0; alb 3.1 HIGH: Cl 109; BUN 19; AST 48 Est. kcal needs: 3014-0422 kcal | 20-25 kcal/kg Est. Pro needs: 67-81 g Pro | 1.0-1.2 g Pro/kg PES STATEMENT: Altered nutrition-related lab values - Protein (NC-2.2) related to inadequate protein intake as evidenced by Pro 5.0 INTERVENTION: Continue with current diet order of Regular diet. Add Ensure HP (vary) to meals BID, for increased protein intake. Provides 160 kcal and 16 g Pro per serving. Will continue to follow and reassess as pt needs and status change. MONITOR/EVALUATE: PO Intake; Plan of Care; Hydration Status; Weight Status; Lab Values Lidya Winn, , RD, LD
--- NOTE | 2019-07-14 15:33 | NUR ---
CM/SS ADMISSION Patient was admitted to ARU 07/13/19 from [facility] internally for sepsis, myopathy, ischemic bowel disease, dementia. Prior to hospitalization, patient has resided with her daughter and JACK, Elida and Rox Coon, for about 2.5 years. Their plan is that she will return back home when discharged. SNF is not a desired outcome for next steps. DME: Patient has FWW, tub transfer bench, stool riser with frame, bathroom grab bars. HHC: Patient had been receiving [facility] for RN and PT and it is an option to resume this service if appropriate to care plan. Patient/daughter indicated them as their preferred agency and a resume of service status. PCP: DARA Chen DariusShalonda APRN ADVANCED DIRECTIVE: Daughter Elida Coon is patient's agent on her DPOA HC. [facility]. Patient does have a [employer] Medicare[employer] plan. INSURED: Medicare, supplement A[employer]. The supplement information was obtained today, commercial real estate underwriter provided to Registration to update patient's demographics. Patient appears pleasantly confused, she will think about a response at times and then defer to her daughter. He had a stay in a Hospital and was then admitted to [facility] for about 3 months. This was not ideal for patient, she apparently stayed in her room all the time and lost some of her level of independent functioning. Elida and CJ then took her home with them and she gradually improved to where she can toilet self, cut up her own foods and eat independently. Elida cooks and manages the home but, just prior to acute illness, patient was able to generally manage herself for her daily care needs with monitor/support if it was needed. CONTACTS: Elida Coon, Daughter Spouse, Michael.J. [address] [place] [address] Ino Chavarria, Son [address] [address] Explained the weekly team conference and all indicated they understood the purpose and process.
[2019-07-14] MEDS: warFARin 5 MG (COUMADIN) TAB PO SCH (17:14)
[2019-07-14] MEDS: amLODIPine 10 MG (NORVASC) TAB PO SCH (17:14)
[2019-07-14 18:00] VITALS: BP 111/67
[2019-07-14] MEDS: ALPRAZolam 0.25 MG (XANAX) TAB PO SCH (20:36)
[2019-07-15] MEDS: ACETAMINOPHEN 325 MG TABLET PO PRN ×2 (02:27→10:00)
[2019-07-15 05:04] VITALS: BP 123/62
[2019-07-15] MEDS: ASCORBIC ACID (VIT C) 500 MG TABLET PO SCH ×2 (06:10→17:05)
--- NOTE | 2019-07-15 07:57 | Occupational Ther Daily Note ---
OT Current Status-Daily Note Subjective Pt seen in recliner chair, pt agreeable to OT tx session. Pt states no pain, then through session states mod pain in mid-back during bending. ADL-Treatment Therapy Code Descriptions/Definitions Functional [place] Measure: 0=Not Assessed/NA 4=Minimal Assistance 1=Total Assistance 5=Supervision or Setup 2=Maximal Assistance 6=Modified [place] 3=Moderate Assistance 7=Complete IndependenceSCALE: Activities may be completed with or without assistive devices. 0-Ulsdflnnwm-rwamahb completes the activity by him/herself with no assistance from a helper. 5-Set-up or Clean-up Assistance-helper sets up or cleans up; patient completes activity. [place] assists only prior to or following the activity. 4-Supervision or Touching Assistance-helper provides verbal cues and/or touching/steadying and/or contact guard assistance as patient completes activity. Assistance may be provided throughout the activity or intermittently. 3-Partial/Moderate Assistance-helper does LESS THAN HALF the effort. [place] lifts, holds or supports trunk or limbs, but provides less than half the effort. 2-Substantial/Maximal Assistance-helper does MORE THAN HALF the effort. [place] lifts or holds trunk or limbs and provides more than half the effort. 4-Hcrtrukhu-lpvldd does ALL the effort. Patient does none of the effort to complete the activity. Or, the assistance of 2 or more helpers is required for the patient to complete the activity. If activity was not attempted, code reason: 7-Patient Refused. 9-Not Applicable-not attempted and the patient did not perform the activity before the current illness, exacerbation or injury. 10-Not Attempted due to Environmental Limitations-(lack of equipment, weather restraints, etc.). 88-Not Attempted due to Medical Conditions or Safety Concerns. Eating (QC): 6 Shower/Bathe Self (QC): 4 (SBA/ s/u) Upper Body Dressing (QC): 5 (S/u) Lower Body Dressing (QC): 4 (SUP) On/Off Footwear: 6 (expresses back pain during session.) Toileting Hygiene (QC): 4 (SBA) Toilet Transfer (QC): 4 (SUP- commode utilized.) Other Treatment Pt eats part of breakfast with success/ no cues/ assist. Pt educated on energy conservation/ home safety/ use of AE throughout. Pt acknowledges understanding. Pt states her memory is poor, repeats self few times through session. Pt completes sponge bath/ bathing in recliner chair, completes toileting. Pt returns to recliner, food set in front of pt. Call light in reach, all needs met. Education OT Patient Education: Energy conservation, Modified ADL techniques, Transfer te chniques, Use of adapted equipment Teaching Recipient: Patient Teaching Methods: Demonstration, Discussion Response to Teaching: Verbalize Understanding, Return Demonstration OT Short Term Goals Short Term Goals Toileting hygiene: 5 Upper body dressin OT Concrete Pipe Maker Goals Prison Goals Eating (QC): 6 Oral Hygiene (QC): 6 Toileting Hygiene (QC): 6 Shower/Bathe Self (QC): 4 Upper Body Dressing (QC): 6 Lower Body Dressing (QC): 6 On/Off Footwear (QC): 6 Additional Goals: 1-Demonstrate ADL Tasks, 2-Verbalize Understanding, 3- ImproveStrength/Mynor 1=Demonstrate adherence to instructed precautions during ADL tasks. 2=Patient will verbalize/demonstrate understanding of assistive devic es/modifications for ADL. 3=Patient will improve strength/tolerance for activity to enable patient to perform ADL's. OT Education/Plan Problem List/Assessment Assessment: Decreased Activ Tolerance, Decreased UE Strength, Impaired Cognition, Impaired I ADL's, Impaired Self-Care Skills Discharge Recommendations Plan/Recommendations: Continue POC Therapy Discharge Recommendati: Home & Family Treatment Plan/Plan of Care Treatment,Training & Education: Yes Patient would benefit from OT for education, treatment and training to promote independence in ADL's, mobility, safety and/or upper extremity function for ADL's. Plan of Care: ADL Retraining, Caregiver Training, Cognitive Retraining, Functional Mobility, Group Exercise/Act as Ind, UE Funct Exercise/Act Treatment Duration: Jul 28, 2019 Frequency: At least 5 of 7 days/Wk (IRF) Estimated Hrs Per Day: 1.5 hours per day Agreement: Yes Rehab Potential: Fair Time/GCodes Start Time: 06:55 Stop Time: 07:55 Total Time Billed (hr/min): 60 Billed Treatment Time 1, ADL 3 (45), FA (15)= 60 ALBERTO CALIXTO OTR Jul 15, 2019 07:57
[2019-07-15] MEDS: MULTIVIT W/MINERALS TAB (THERAGRAN M) PO SCH (08:19)
[2019-07-15] MEDS: PANTOPRAZOLE 40 MG (PROTONIX) TAB PO SCH (08:19)
[2019-07-15] MEDS: lisINopril 40 MG (PRINIVIL) TABLET PO SCH (08:19)
[2019-07-15] MEDS: FUROSEMIDE 20 MG (LASIX) TAB PO SCH (08:19)
[2019-07-15] MEDS: SPIRONOLACTONE 25 MG (ALDACTONE) TAB PO SCH (08:20)
[2019-07-15] MEDS: SENNA W/DOCUSATE (SENOKOT S) TABLET PO SCH ×2 (08:20→20:15)
[2019-07-15] MEDS: OMEGA 3 (FISH OIL) 1000 MG CAP PO SCH (08:20)
[2019-07-15] MEDS: DOCUSATE SODIUM 100 MG (COLACE) CAP PO SCH ×2 (08:20→20:15)
[2019-07-15] MEDS: polyethylene glycoL POWDER 17 GM (MIRALAX) PACK PO SCH (08:21)
[2019-07-15 08:22] VITALS: BP 123/71
[2019-07-15] MEDS: RT-ALBUTEROL SULF 2.5 MG/3 ML PRE-MIX VIAL INH SCH ×2 (09:21→20:49)
[2019-07-15] MEDS: ENOXAPARIN 60 MG/0.6 ML (LOVENOX) SYR SC SCH ×2 (09:57→20:15)
--- NOTE | 2019-07-15 10:08 | Physical Therapy Daily Note ---
PT Daily Note-Current Subjective Pt. agrees to Rx. Wants to go to bathroom for BM. States she doesnt really remember some things about her home and habits there Pain Numeric Pain Scale: 7 Location: Medial Location Body Site: Back Pain Description: Stabbing Appearance kyphotic, scoliotic Mental Status Patient Orientation: Person, Place Transfers SCALE: Activities may be completed with or without assistive devices. 0-Pzfjvsgxtx-qyazrtt completes the activity by him/herself with no assistance from a helper. 5-Set-up or Clean-up Assistance-helper sets up or cleans up; patient completes activity. [place] assists only prior to or following the activity. 4-Supervision or Touching Assistance-helper provides verbal cues and/or touching/steadying and/or contact guard assistance as patient completes activity. Assistance may be provided throughout the activity or intermittently. 3-Partial/Moderate Assistance-helper does LESS THAN HALF the effort. [place] lifts, holds or supports trunk or limbs, but provides less than half the effort. 2-Substantial/Maximal Assistance-helper does MORE THAN HALF the effort. [place] lifts or holds trunk or limbs and provides more than half the effort. 7-Qrccrdijt-dtoxjl does ALL the effort. Patient does none of the effort to complete the activity. Or, the assistance of 2 or more helpers is required for the patient to complete the activity. If activity was not attempted, code reason: 7-Patient Refused. 9-Not Applicable-not attempted and the patient did not perform the activity before the current illness, exacerbation or injury. 10-Not Attempted due to Environmental Limitations-(lack of equipment, weather restraints, etc.). 88-Not Attempted due to Medical Conditions or Safety Concerns. Roll Left & Right (QC): 5 Sit to Lying (QC): 5 Lying to Sitting/Side of Bed(Q: 5 Sit to Stand (QC): 5 Chair/Ctq-tt-Ygkbf Xfer(QC): 5 Toilet Transfer (QC): 5 Gait Training Does the Patient Walk?: Yes Walk 10 feet (QC): 4 Walk 50 ft with 2 Turns(QC): 4 Gait Persons Needed: 1 Gait Assistive Device: FWW Exercises Supine Ex: Ankle pumps, Quad Set, Rolling, Heel Slides, Short Arc Quads Supine Reps: 12 Seated Therapy Exercises: Ankle pumps, Sit to stand, Long arc quads, Hip flexion, Hip abd/add Seated Reps: 12 Standing: Heel/toe raises, Marching, Sit to Stand Standing Reps: 12 pt. c/o increased pain with supine exercise, this was cut short, nursing was advised of pts pain c/o. NuStep Minutes: 8 NuStep Workload: 3 Assessment Current Status: Good Progress PT Shelter Goals Bull Gang Worker Goals PT Shelter Goals Time Frame: Jul 29, 2019 Roll Left & Right (QC): 6 Sit to Lying (QC): 6 Lying-Sitting on Side/Bed(QC): 6 Sit to Stand (QC): 5 Chair/Uel-oy-Uuoad Xfer(QC): 5 Toilet Transfer (QC): 5 Car Transfer (QC): 6 Does the Patient Walk: Yes Walk 10 feet (QC): 5 Walk 50ft with 2 Turns (QC): 5 Walk 150 ft (QC): 5 Walking 10ft on Uneven Surface: 5 1 Step (curb) (QC): 4 4 Steps (QC): 4 12 Steps (QC): 9 Picking up an Object (QC): 5 PT Plan Treatment/Plan Treatment Plan: Continue Plan of Care Treatment Plan: Bed Mobility, Concurrent Therapy, Education, Functional Activity Mynor, Functional Strength, Group Therapy, Gait, Safety, Therapeutic Exercise, Transfers Treatment Duration: Jul 29, 2019 Frequency: At least 5 of 7 days/Wk (IRF) Estimated Hrs Per Day: 1.5 hours per day Patient and/or Family Agrees t: Yes Safety Risks/Education Patient Education: Gait Training, Transfer Techniques, Correct Positioning, Disease Process, Safety Issues Teaching Recipient: Patient Teaching Methods: Demonstration, Discussion Response to Teaching: Verbalize Understanding, Return Demonstration, Reinforcement Needed Time/GCodes Time In: 900 Time Out: 1000 Total Billed Treatment Time: 60 Total Billed Treatment 1,GT20m,FA25m,FA15m ORLIN EPSTEIN HONEY BLENDER Jul 15, 2019 10:08
--- NOTE | 2019-07-15 12:04 | Therapy Group Daily Note ---
Therapy Daily Group Note Patient Education Topic Other List Below (TRF safety, ARU [id number]) Exercises LE Seated Exercise, Sit to/from Stand, UE Exercise Session Ratio (pt:therapist): 4:1 Goal of Session: Education on ARU Expectations, Safety with Transfers, Other (list) (indep ex program) Goal Met for this Session: Yes Pt Benefit of Group: Increased Functional Safety, Increased Functional Strength, Socialization Other/Notes Pt. was active participant in PT group session this date. Pt. was very social introducing herself and shared about her occupation and role in the community. Pts were educated in goals and practices of ARU , what to expect and scheduling etc. Car simulator was demonstrated as well as sit to stand safety practices and techniques. Pts. all participated in sit to stand with CGA to SBA. Seated arm chair push ups were completed with education as to how this strengthens for sit to stand. Pts were taught exercises they can do anytime sitting or laying that help them rest better, prevent blood clots and skin break down ie ankle pumps, Q sets, LAQs, glut sets , seated marches . Pt. actively participated in all . Pt. was escorted to room , toileted and then in bed with call light and needs met Start Time: 10:30 Stop Time: 11:30 Total Billed Treatment Time: 60 Total Billed Treatment 1,GRP ORLIN EPSTEIN CORPORATE WELLNESS COORDINATOR Jul 15, 2019 12:04
--- NOTE | 2019-07-15 12:23 | PM&R Progress Note ---
Subjective HPI/CC On Admission Date Seen by Provider: Jul 15, 2019 Time Seen by Provider: 12:30 Subjective/Events-last exam Patient doing much better Minimal confusion Bowels are moving No abdominal pain Maintain on Lovenox bridge and restarted Coumadin 2 days ago Overall benefiting from intensive therapy No confusion noted by nurse Conferred with therapy tech therapy notes Checked meds and labs Review of Systems General: Fatigue Gastrointestinal: Abdominal Pain Neurological: Confusion Objective Exam Vital Signs Vital Signs Date Time Temp Pulse Resp B/P (MAP) Pulse Ox O2 Delivery O2 Flow Rate FiO2 07/15/19 09:59 Room Air 07/15/19 08:22 73 123/71 (88) 07/15/19 05:04 36.7 18 95 Capillary Refill : Less Than 3 Seconds General Appearance: No Apparent Distress, WD/WN, Chronically ill, Thin, Other (frail) HEENT: PERRL/EOMI, Normal ENT Inspection, Pharynx Normal Neck: Full Range of Motion, Normal Inspection, Non Tender, Supple, Carotid Bruit Respiratory: Chest Non Tender, Lungs Clear, Normal Breath Sounds, No Accessory Muscle Use, No Respiratory Distress Cardiovascular: Regular Rate, Rhythm, No Edema, No Gallop, No JVD, No Murmur, Normal Peripheral Pulses Gastrointestinal: Normal Bowel Sounds, No Organomegaly, No Pulsatile Mass, Non Tender, Soft Back: Normal Inspection, No CVA Tenderness, No Vertebral Tenderness Extremity: Normal Capillary Refill, Normal Inspection, Normal Range of Motion, Non Tender, No Calf Tenderness, No Pedal Edema Neurologic/Psychiatric: Alert, Oriented x3, No Motor/Sensory Deficits, Normal Mood/Affect, 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 FIM Transfers Therapy Code Descriptions/Definitions Functional [place] Measure: 0=Not Assessed/NA 4=Minimal Assistance 1=Total Assistance 5=Supervision or Setup 2=Maximal Assistance 6=Modified [place] 3=Moderate Assistance 7=Complete IndependenceSCALE: Activities may be completed with or without assistive devices. 3-Nmosfdjhit-ncvpbaw completes the activity by him/herself with no assistance from a helper. 5-Set-up or Clean-up Assistance-helper sets up or cleans up; patient completes activity. [place] assists only prior to or following the activity. 4-Supervision or Touching Assistance-helper provides verbal cues and/or touching/steadying and/or contact guard assistance as patient completes activity. Assistance may be provided throughout the activity or intermittently. 3-Partial/Moderate Assistance-helper does LESS THAN HALF the effort. [place] lifts, holds or supports trunk or limbs, but provides less than half the effort. 2-Substantial/Maximal Assistance-helper does MORE THAN HALF the effort. [place] lifts or holds trunk or limbs and provides more than half the effort. 1-Dnemxzijs-naxhiy does ALL the effort. Patient does none of the effort to co mplete the activity. Or, the assistance of 2 or more helpers is required for the patient to complete the activity. If activity was not attempted, code reason: 7-Patient Refused. 9-Not Applicable-not attempted and the patient did not perform the activity before the current illness, exacerbation or injury. 10-Not Attempted due to Environmental Limitations-(lack of equipment, weather restraints, etc.). 88-Not Attempted due to Medical Conditions or Safety Concerns. Roll Left to Right (QC): 5 Sit to Lying (QC): 5 Sit to Stand (QC): 5 Chair/Lpm-sb-Vsvav Xfer(QC): 5 Car Transfer (QC): 5 Gait Training Does the Patient Walk?: Yes Distance: 200', 120' Walk 10 feet (QC): 4 Walk 50 ft with 2 Turns(QC): 4 Walk 150 ft (QC): 4 Walking 10ft/uneven surface-QC: 4 Gait Persons Needed: 1 Gait Assistive Device: FWW Wheelchair Training Does the Pt Use a Wheelchair?: No Stair Training #of Steps: 2 1 Step (curb) (QC): 3 4 Steps (QC): 88 12 Steps (QC): 9 Balance Picking up an Object (QC): 5 ADL-Treatment Eating (QC): 6 Oral Hygiene (QC): 5 Shower/Bathe Self (QC): 4 (SBA/ s/u) Upper Body Dressing (QC): 5 (S/u) Lower Body Dressing (QC): 4 (SUP) On/Off Footwear (QC): 6 (expresses back pain during session.) Toileting Hygiene (QC): 4 (SBA) Toilet Transfer (QC): 4 (SUP- commode utilized.) Assessment/Plan Assessment and Plan Assess & Plan/Chief Complaint Assessment: Severe debility Ischemic bowel disease Confusion Hypertension Fall risk Plan: Lovenox bridge Coumadin Inpatient rehabilitation protocol On her confusion Fall risk (1) Myopathy (2) Ischemic bowel disease Status: Acute (3) Dementia Status: Acute (4) Warfarin prescribed at discharge ROBERT WEBSTER DO Jul 15, 2019 12:23
--- NOTE | 2019-07-15 13:16 | Individualized Plan of Care ---
Individualized Plan of Care Rehab Nursing IPOC Order Admission Date Jul 13, 2019 at 15:50 Current Orders Orders Admission Arrival Bed Request (07/13/19 15:59) Patient Visit (07/13/19 ) Pt Eval Moderate Complexity (07/13/19 ) Ambulate 08,12,20 (07/13/19 18:00) Sequential Compression Device Q4H (07/13/19 18:00) Dvt/Vte Risk - Notifiy Physici Q4H (07/13/19 18:00) Code/Resuscitation (07/13/19 18:09) Ambulate 08,, (07/13/19 18:09) Diet Advance As Tolerated (07/13/19 18:09) Initiate Admission Nursing Pro .admission (07/13/19 18:09) General/Regular (07/14/19 Breakfast) (Nf) Ascorbate Calcium (Vitamin C) (07/13/19 21:00) (Nf) Cranberry Extract (Cranberry) (07/13/19 21:00) (Nf) Ubidecarenone/Vit E Acetate (Co Q-1 (07/13/19 21:00) Alprazolam Tablet (Xanax Tablet) (07/13/19 21:00) Albuterol Pre-Mix Nebs (Rt) (Proventil (07/13/19 21:00) Atorvastatin Tablet (Lipitor) (07/14/19 09:00) Diphenhydramine Injection (Benadryl Inje (07/13/19 18:15) Calcium Carbonate Chew Tablet (Antacid C (07/13/19 18:15) Docusate Sodium Capsule (Colace Capsule) (07/13/19 21:00) Bisacodyl Suppository (Dulcolax Supposit (07/13/19 18:15) Lactulose Oral Solution (Enulose Oral So (07/13/19 18:15) Furosemide Tablet (Lasix Tablet) (07/14/19 09:00) Melatonin Tablet (Melatonin Tablet) (07/13/19 18:15) Metoclopramide Injection (Reglan Injecti (07/13/19 18:15) Magnesium Hydroxide Oral Susp (Mom Oral (07/13/19 18:15) Morphine Injection (Morphine Injection (07/13/19 18:15) Antacid Suspension (Mylanta Suspension (07/13/19 18:15) Sigel 3 Capsule (Fish Oil Capsule) (07/14/19 09:00) Pantoprazole Tablet (Protonix Tablet) (07/14/19 09:00) Polyethylene Glycol Powder Pkt (Miralax (07/14/19 09:00) Sodium Chloride Flush (Catheter Flush Sy (07/13/19 18:15) Spironolactone Tablet (Aldactone Tablet) (07/14/19 09:00) Therapeutic Multivitamin Tab (Vitamins, (07/14/19 08:00) Acetaminophen Tablet/Caplet (Tylenol T (07/13/19 18:15) Ondansetron Injection (Zofran Injectio (07/13/19 18:15) Ondansetron Oral Dissolve Tab (Zofran (07/13/19 18:15) Amlodipine Tablet (Norvasc Tablet) (07/14/19 18:00) Lisinopril Tablet (Zestril Tablet) (07/14/19 09:00) Oxycodone Immediate Rel Tablet (Oxyir Ta (07/13/19 18:15) Tramadol Tablet (Ultram Tablet) (07/13/19 21:00) Warfarin Tablet (Coumadin Tablet) (07/14/19 18:00) Svn Small Volume Nebulizer (07/13/19 18:09) Admission Order(Inpt,Obs,Sdc) (07/13/19 18:09) Vital Signs: Per Unit Policy ( 08,16,00 (07/13/19 18:09) Sign Painter-Inpt Rehab Con (07/13/19 18:09) Rehab Nursing Orders-Ipoc (07/13/19 18:09) Physical Therapy Rehab Orders (07/13/19 18:09) Occupational Therapy Rehab Ord (07/13/19 18:09) Speech Therapy Rehab Orders (07/13/19 18:09) Cbc With Automated Diff (07/14/19 06:00) Comprehensive Metabolic Panel (07/14/19 06:00) Intake & Output 06,14,22 (07/13/19 18:09) Precautions (Aru) (07/13/19 18:09) Weekly Weight WEEK (07/13/19 18:09) Rehab-Intensity Of Therapy (07/13/19 18:09) Initiate Admission Nursing Pro .admission (07/13/19 18:09) Alprazolam Tablet (Xanax Tablet) (07/13/19 18:15) Calcium Carbonate Chew Tablet (Antacid C (07/13/19 18:15) Diphenhydramine Tablet (Benadryl Tablet) (07/13/19 18:15) Docusate Sodium Capsule (Colace Capsule) (07/13/19 21:00) Docusate Sodium Capsule (Colace Capsule) (07/13/19 18:15) Bisacodyl Suppository (Dulcolax Supposit (07/13/19 18:15) Lactulose Oral Solution (Enulose Oral So (07/13/19 18:15) Na Phos/Na Biphos Enema (Fleet Enema Kahlil (07/13/19 18:15) Guaifenesin/Codeine Syrup (Robitussin Ac (07/13/19 18:15) Loperamide Tablet (Imodium Tablet) (07/13/19 18:15) Melatonin Tablet (Melatonin Tablet) (07/13/19 18:15) Polyethylene Glycol Powder Pkt (Miralax (07/13/19 21:00) Ondansetron Oral Dissolve Tab (Zofran (07/13/19 18:15) Senna S Tablet (Senokot S Tablet) (07/13/19 21:00) Initiate Admission Nursing Pro .admission (07/13/19 18:09) Warfarin Tablet (Coumadin Tablet) (07/13/19 18:45) Morphine Injection (Morphine Injection (07/13/19 18:45) Ascorbic Acid Tablet (Vitamin C Tablet) (07/14/19 07:00) Protime With Inr (07/14/19 06:00) Enoxaparin Injection (Lovenox Injection) (07/14/19 09:45) Patient Visit (07/14/19 ) Gait Training, Ea 15 Min (07/14/19 ) Exercise Therap, Ea 15 Min (07/14/19 ) Functional Activities, Ea 15 (07/14/19 ) Patient Visit (07/14/19 ) Speech Sound Lang Comp (07/14/19 ) Ensure High Protein (07/14/19 Dinner) Patient Visit (07/15/19 ) Gait Training, Ea 15 Min (07/15/19 ) Functional Activities, Ea 15 (07/15/19 ) Exercise Therap, Ea 15 Min (07/15/19 ) Therapeutic, Group (07/15/19 ) Rehab Nursing Orders: Ongoing Assess. of Cognitive Status, Ongoing Assess. of Function Status, Bowel Management, Bowel Training, Disease Management & Educaiton, DVT Prophylaxis, Fall Prevention, Fluid/Electrolyte/Nutrition Mgmt, Infection Prevention, Medication Management & Education, Management of Risks & Complications, Management of Skin Intergrity, Nutrition Management, Pain Manage ment, Patient/Family Support, Safety Management Intensity of Therapy to be met Patient to be seen: Min.3h per day/5 of 7d PT IPOC Problem List: Activity Tolerance, Functional Strength, Safety, Balance, Gait, Transfer, Bed Mobility, ROM Treatment Plan: Continue Plan of Care Bed Mobility, Concurrent Therapy, Education, Functional Activity Mynor, Functional Strength, Group Therapy, Gait, Safety, Therapeutic Exercise, [place] sfers Treatment Duration: Jul 29, 2019 Frequency: At least 5 of 7 days/Wk (IRF) Estimated Hrs Per Day: 1.5 hours per day OT IPOC Problems: Decreased Activ Tolerance, Decreased UE Strength, Impaired Cognition, Impaired I ADL's, Impaired Self-Care Skills OT Treatment, Training and Edu: Yes Plan of Care: ADL Retraining, Caregiver Training, Cognitive Retraining, Functio nal Mobility, Group Exercise/Act as Ind, UE Funct Exercise/Act Treatment Duration: Jul 28, 2019 Frequency: At least 5 of 7 days/Wk (IRF) Estimated Hrs Per Day: 1.[address] IPOC Speech Therapy Treatment Plan: Continue Plan of Care Treatment Duration: Jul 21, 2019 Frequency: 5 times per week Estimated Hrs Per Day: .5 hour per day Sign Painter/Case Mgmt Sign Painter/Case Managemen: Discharge Planning Dietitian/[place] Mechanic Dietitian/[place] Mechanic to monitor nutritional status and make changes and/or recommendations as needed and work with speech pathology on dietary upgrades as the occur. Physician IPOC Medical Issues being managed closely and that require the 24 hour availability of a physician: Recent episode of ischemic bowel disease with abdominal pain requiring endoscopy with broad-spectrum antibiotics and history of dementia with fall risk will require close supervision Medical Issues: Bowel/Bladder Function, DVT Prophylaxis, Falls Precautions, Fluid/Electrolyte/Nutrition Balance, Pain Management Brief Synthesis of Preadmission Screen, Post-Admission Evaluation, and Therapy Evaluations: PT and OT and ST will focus on regaining enough ADL independence and ambulatory skills in order to return home with her daughter Medical Prognosis: good Anticipated Length of Stay: 7 days ROBERT WEBSTER DO Jul 15, 2019 13:16
[2019-07-15 16:24] VITALS: BP 117/73
[2019-07-15] MEDS: amLODIPine 10 MG (NORVASC) TAB PO SCH (17:05)
[2019-07-15] MEDS: warFARin 5 MG (COUMADIN) TAB PO SCH (17:05)
[2019-07-15] MEDS: ALPRAZolam 0.25 MG (XANAX) TAB PO SCH (20:16)
[2019-07-16 04:00] VITALS: BP 127/71
[2019-07-16] MEDS: ASCORBIC ACID (VIT C) 500 MG TABLET PO SCH ×2 (05:07→17:06)
[2019-07-16] MEDS: ACETAMINOPHEN 325 MG TABLET PO PRN (05:08)
[2019-07-16 05:15] VITALS: BP 137/79
[2019-07-16] MEDS: RT-ALBUTEROL SULF 2.5 MG/3 ML PRE-MIX VIAL INH SCH ×2 (08:54→19:23)
[2019-07-16 09:03] VITALS: BP 111/63
[2019-07-16] MEDS: OMEGA 3 (FISH OIL) 1000 MG CAP PO SCH (09:04)
[2019-07-16] MEDS: SPIRONOLACTONE 25 MG (ALDACTONE) TAB PO SCH (09:04)
[2019-07-16] MEDS: PANTOPRAZOLE 40 MG (PROTONIX) TAB PO SCH (09:04)
[2019-07-16] MEDS: MULTIVIT W/MINERALS TAB (THERAGRAN M) PO SCH (09:04)
[2019-07-16] MEDS: FUROSEMIDE 20 MG (LASIX) TAB PO SCH (09:04)
[2019-07-16] MEDS: lisINopril 40 MG (PRINIVIL) TABLET PO SCH (09:04)
[2019-07-16] MEDS: SENNA W/DOCUSATE (SENOKOT S) TABLET PO SCH ×2 (09:05→20:05)
[2019-07-16] MEDS: ENOXAPARIN 60 MG/0.6 ML (LOVENOX) SYR SC SCH ×2 (09:05→20:05)
[2019-07-16] MEDS: DOCUSATE SODIUM 100 MG (COLACE) CAP PO SCH ×2 (09:05→20:05)
[2019-07-16] MEDS: polyethylene glycoL POWDER 17 GM (MIRALAX) PACK PO SCH (09:05)
--- NOTE | 2019-07-16 11:53 | PM&R Progress Note ---
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 prose therapy notes Checked meds and labs Review of Systems General: Fatigue Neurological: Confusion Objective Exam Vital Signs Vital Signs Date Time Temp Pulse Resp B/P (MAP) Pulse Ox O2 Delivery O2 Flow Rate FiO2 07/16/19 09:12 Room Air 07/16/19 09:03 75 18 111/63 (79) 96 07/16/19 05:15 37.0 Capillary Refill : Less Than 3 Seconds General Appearance: No Apparent Distress, WD/WN, Chronically ill, Thin, Other (frail) HEENT: PERRL/EOMI, Normal ENT Inspection, Pharynx Normal Neck: Full Range of Motion, Normal Inspection, Non Tender, Supple, Carotid Bruit Respiratory: Chest Non Tender, Lungs Clear, Normal Breath Sounds, No Accessory Muscle Use, No Respiratory Distress Cardiovascular: Regular Rate, Rhythm, No Edema, No Gallop, No JVD, No Murmur, Normal Peripheral Pulses Gastrointestinal: Normal Bowel Sounds, No Organomegaly, No Pulsatile Mass, Non Tender, Soft Back: Normal Inspection, No CVA Tenderness, No Vertebral Tenderness Extremity: Normal Capillary Refill, Normal Inspection, Normal Range of Motion, Non Tender, No Calf Tenderness, No Pedal Edema Neurologic/Psychiatric: Alert, Oriented x3, No Motor/Sensory Deficits, Normal Mood/Affect, 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 FIM Transfers Therapy Code Descriptions/Definitions Functional [place] Measure: 0=Not Assessed/NA 4=Minimal Assistance 1=Total Assistance 5=Supervision or Setup 2=Maximal Assistance 6=Modified [place] 3=Moderate Assistance 7=Complete IndependenceSCALE: Activities may be completed with or without assistive devices. 2-Kwtcbfqpqn-xzxzgks completes the activity by him/herself with no assistance from a helper. 5-Set-up or Clean-up Assistance-helper sets up or cleans up; patient completes activity. [place] assists only prior to or following the activity. 4-Supervision or Touching Assistance-helper provides verbal cues and/or touching/steadying and/or contact guard assistance as patient completes activity. Assistance may be provided throughout the activity or intermittently. 3-Partial/Moderate Assistance-helper does LESS THAN HALF the effort. [place] lifts, holds or supports trunk or limbs, but provides less than half the effort. 2-Substantial/Maximal Assistance-helper does MORE THAN HALF the effort. [place] lifts or holds trunk or limbs and provides more than half the effort. 6-Tembrckpw-ymsmny does ALL the effort. Patient does none of the effort to complete the activity. Or, the assistance of 2 or more helpers is required for the patient to complete the activity. If activity was not attempted, code reason: 7-Patient Refused. 9-Not Applicable-not attempted and the patient did not perform the activity before the current illness, exacerbation or injury. 10-Not Attempted due to Environmental Limitations-(lack of equipment, weather restraints, etc.). 88-Not Attempted due to Medical Conditions or Safety Concerns. Roll Left to Right (QC): 5 Sit to Lying (QC): 5 Sit to Stand (QC): 5 Chair/Ysn-qq-Ekosj Xfer(QC): 5 Car Transfer (QC): 5 Gait Training Does the Patient Walk?: Yes Distance: 200', 120' Walk 10 feet (QC): 4 Walk 50 ft with 2 Turns(QC): 4 Walk 150 ft (QC): 4 Walking 10ft/uneven surface-QC: 4 Gait Persons Needed: 1 Gait Assistive Device: FWW Wheelchair Training Does the Pt Use a Wheelchair?: No Stair Training #of Steps: 2 1 Step (curb) (QC): 3 4 Steps (QC): 88 12 Steps (QC): 9 Balance Picking up an Object (QC): 5 ADL-Treatment Eating (QC): 6 Oral Hygiene (QC): 5 Shower/Bathe Self (QC): 4 (SBA/ s/u) Upper Body Dressing (QC): 5 (S/u) Lower Body Dressing (QC): 4 (SUP) On/Off Footwear (QC): 6 (expresses back pain during session.) Toileting Hygiene (QC): 4 (SBA) Toilet Transfer (QC): 4 (SUP- commode utilized.) Assessment/Plan Assessment and Plan Assess & Plan/Chief Complaint Assessment: Severe debility Ischemic bowel disease Confusion Hypertension Fall risk Coumadin treatment with Lovenox bridge currently Plan: Lovenox bridge Coumadin Inpatient rehabilitation protocol Monitor confusion Fall risk Check labs in am including INR (1) Myopathy (2) Ischemic bowel disease Status: Acute (3) Dementia Status: Acute (4) Warfarin prescribed at discharge ROBERT WEBSTER DO Jul 16, 2019 11:53
[2019-07-16] MEDS: warFARin 5 MG (COUMADIN) TAB PO SCH (17:06)
[2019-07-16] MEDS: amLODIPine 10 MG (NORVASC) TAB PO SCH (17:06)
[2019-07-16 17:20] VITALS: BP 106/64
[2019-07-16] MEDS: ALPRAZolam 0.25 MG (XANAX) TAB PO SCH (20:05)
[2019-07-16] MEDS: ONDANSETRON 4 MG (ZOFRAN) ORAL DISSOLVE TAB PO PRN (23:06)
[2019-07-17 05:04] VITALS: BP 125/73
[2019-07-17] MEDS: ASCORBIC ACID (VIT C) 500 MG TABLET PO SCH ×2 (06:09→17:36)
[2019-07-17 07:26] LABS: BASOPHILS % (AUTO) 1 % (0-10); EOSINOPHILS # (AUTO) 0.2 10^3/uL (0.0-0.3); EOSINOPHILS % (AUTO) 5 % (0-10); HEMATOCRIT 36 % (35-52); HEMOGLOBIN 11.6 G/DL (11.5-16.0); LYMPHOCYTES # (AUTO) 1.7 X 10^3 (1.0-4.0); LYMPHOCYTES % (AUTO) 39 % (12-44); MEAN CORPUSCULAR HEMOGLOBIN 30 PG (25-34); MEAN CORPUSCULAR HGB CONC 33 G/DL (32-36); MEAN CORPUSCULAR VOLUME 91 FL (80-99); MEAN PLATELET VOLUME 10.7 FL (7.4-10.4); MONOCYTES # (AUTO) 0.5 X 10^3 (0.0-1.0); MONOCYTES % (AUTO) 11 % (0-12); NEUTROPHILS # (AUTO) 1.9 X 10^3 (1.8-7.8); NEUTROPHILS % (AUTO) 44 % (42-75); PLATELET COUNT 164 10^3/uL (130-400); WHITE BLOOD COUNT 4.3 10^3/uL (4.3-11.0)
[2019-07-17] MEDS: RT-ALBUTEROL SULF 2.5 MG/3 ML PRE-MIX VIAL INH SCH (07:35)
[2019-07-17 07:41] LABS: INR 1.1 (0.8-1.4); PROTHROMBIN TIME PATIENT 14.9 SEC (12.2-14.7)
[2019-07-17 07:50] LABS: ALANINE AMINOTRANSFERASE 38 U/L (0-55); ALBUMIN 3.4 GM/DL (3.2-4.5); ALKALINE PHOSPHATASE 74 U/L (40-136); BILIRUBIN,TOTAL 0.2 MG/DL (0.1-1.0); BUN/CREATININE RATIO 26; CALCIUM 9.8 MG/DL (8.5-10.1); CARBON DIOXIDE 26 MMOL/L (21-32); CHLORIDE 106 MMOL/L (98-107); CREATININE SERUM 0.81 MG/DL (0.60-1.30); GFR ESTIMATED > 60; GLUCOSE 75 MG/DL (70-105); POTASSIUM 4.1 MMOL/L (3.6-5.0); SODIUM 140 MMOL/L (135-145); TOTAL PROTEIN 5.4 GM/DL (6.4-8.2)
--- NOTE | 2019-07-17 08:37 | PM&R Progress Note ---
Subjective HPI/CC On Admission Date Seen by Provider: Jul 17, 2019 Time Seen by Provider: 08:45 Subjective/Events-last exam Minimal confusion noted. Walking pretty well with a walker. SLUMS score will be reviewed. Has a runny nose, blows her nose a lot. Scheduled Tramadol seems to work well for her. Last BM was yesterday and it was normal. Conferred with creative engagement director therapy notes Checked meds and labs Review of Systems General: Fatigue Objective Exam Vital Signs Vital Signs Date Time Temp Pulse Resp B/P (MAP) Pulse Ox O2 Delivery O2 Flow Rate FiO2 07/17/19 20:00 Room Air 07/17/19 17:48 37.2 72 20 119/70 (86) 97 Capillary Refill : Less Than 3 Seconds General Appearance: No Apparent Distress, WD/WN, Chronically ill, Thin, Other (frail) HEENT: PERRL/EOMI, Normal ENT Inspection, Pharynx Normal Neck: Full Range of Motion, Normal Inspection, Non Tender, Supple, Carotid Bruit Respiratory: Chest Non Tender, Lungs Clear, Normal Breath Sounds, No Accessory Muscle Use, No Respiratory Distress Cardiovascular: Regular Rate, Rhythm, No Edema, No Gallop, No JVD, No Murmur, Normal Peripheral Pulses Gastrointestinal: Normal Bowel Sounds, No Organomegaly, No Pulsatile Mass, Non Tender, Soft Back: Normal Inspection, No CVA Tenderness, No Vertebral Tenderness Extremity: Normal Capillary Refill, Normal Inspection, Normal Range of Motion, Non Tender, No Calf Tenderness, No Pedal Edema Neurologic/Psychiatric: Alert, Oriented x3, No Motor/Sensory Deficits, Normal Mood/Affect, drafting detailer II-XII Norm as Tested, Disoriented (subtle), Motor Weakness (generalized weakness all extremities) Skin: Normal Color, Warm/Dry Lymphatic: No Adenopathy Results/Procedures Lab Laboratory Tests 07/17/19 05:30 Patient resulted labs reviewed. FIM Transfers Therapy Code Descriptions/Definitions Functional [place] Measure: 0=Not Assessed/NA 4=Minimal Assistance 1=Total Assistance 5=Supervision or Setup 2=Maximal Assistance 6=Modified [place] 3=Moderate Assistance 7=Complete IndependenceSCALE: Activities may be completed with or without assistive devices. 4-Hgjsdfuwnv-tdspupl completes the activity by him/herself with no assistance from a helper. 5-Set-up or Clean-up Assistance-helper sets up or cleans up; patient completes activity. [place] assists only prior to or following the activity. 4-Supervision or Touching Assistance-helper provides verbal cues and/or touching/steadying and/or contact guard assistance as patient completes activity. Assistance may be provided throughout the activity or intermittently. 3-Partial/Moderate Assistance-helper does LESS THAN HALF the effort. [place] lif ts, holds or supports trunk or limbs, but provides less than half the effort. 2-Substantial/Maximal Assistance-helper does MORE THAN HALF the effort. [place] lifts or holds trunk or limbs and provides more than half the effort. 2-Jnkkptagh-wgyuju does ALL the effort. Patient does none of the effort to complete the activity. Or, the assistance of 2 or more helpers is required for the patient to complete the activity. If activity was not attempted, code reason: 7-Patient Refused. 9-Not Applicable-not attempted and the patient did not perform the activity before the current illness, exacerbation or injury. 10-Not Attempted due to Environmental Limitations-(lack of equipment, weather restraints, etc.). 88-Not Attempted due to Medical Conditions or Safety Concerns. Roll Left to Right (QC): 5 Sit to Lying (QC): 5 Sit to Stand (QC): 5 Chair/Sgd-dc-Dumwj Xfer(QC): 5 Car Transfer (QC): 5 Gait Training Does the Patient Walk?: Yes Distance: 200', 120' Walk 10 feet (QC): 4 Walk 50 ft with 2 Turns(QC): 4 Walk 150 ft (QC): 4 Walking 10ft/uneven surface-QC: 4 Gait Persons Needed: 1 Gait Assistive Device: FWW Wheelchair Training Does the Pt Use a Wheelchair?: No Stair Training #of Steps: 2 1 Step (curb) (QC): 3 4 Steps (QC): 88 12 Steps (QC): 9 Balance Picking up an Object (QC): 5 ADL-Treatment Eating (QC): 6 Oral Hygiene (QC): 5 Shower/Bathe Self (QC): 4 (SBA/ s/u) Upper Body Dressing (QC): 5 (S/u) Lower Body Dressing (QC): 4 (SUP) On/Off Footwear (QC): 6 (expresses back pain during session.) Toileting Hygiene (QC): 4 (SBA) Toilet Transfer (QC): 4 (SUP- commode utilized.) Assessment/Plan Assessment and Plan Assess & Plan/Chief Complaint Assessment: Severe debility Ischemic bowel disease Confusion Hypertension Fall risk Coumadin treatment with Lovenox bridge currently Plan: Lovenox bridge Coumadin Inpatient rehabilitation protocol Monitor confusion Fall risk Monitor INR (1) Myopathy (2) Ischemic bowel disease Status: Acute (3) Dementia Status: Acute (4) Warfarin prescribed at discharge ROBERT WEBSTER DO Jul 17, 2019 08:37
[2019-07-17 09:05] VITALS: BP 125/73
--- NOTE | 2019-07-17 09:06 | Physical Therapy Daily Note ---
PT Daily Note-Current Subjective Pt. up in recliner. States she cant remember if she had breakfast or not. Agrees to Rx. Pain Location: No Pain Reported Mental Status Patient Orientation: Confused Transfers SCALE: Activities may be completed with or without assistive devices. 6-Fyzqlsaqfu-cliihgz completes the activity by him/herself with no assistance from a helper. 5-Set-up or Clean-up Assistance-helper sets up or cleans up; patient completes activity. [place] assists only prior to or following the activity. 4-Supervision or Touching Assistance-helper provides verbal cues and/or touching/steadying and/or contact guard assistance as patient completes activity. Assistance may be provided throughout the activity or intermittently. 3-Partial/Moderate Assistance-helper does LESS THAN HALF the effort. [place] lifts, holds or supports trunk or limbs, but provides less than half the effort. 2-Substantial/Maximal Assistance-helper does MORE THAN HALF the effort. [place] lifts or holds trunk or limbs and provides more than half the effort. 2-Jpvyqmykl-sokfce does ALL the effort. Patient does none of the effort to complete the activity. Or, the assistance of 2 or more helpers is required for the patient to complete the activity. If activity was not attempted, code reason: 7-Patient Refused. 9-Not Applicable-not attempted and the patient did not perform the activity before the current illness, exacerbation or injury. 10-Not Attempted due to Environmental Limitations-(lack of equipment, weather restraints, etc.). 88-Not Attempted due to Medical Conditions or Safety Concerns. Roll Left & Right (QC): 6 Sit to Lying (QC): 6 Lying to Sitting/Side of Bed(Q: 6 Sit to Stand (QC): 6 Toilet Transfer (QC): 6 Car Transfer (QC): 5 pt. also did tub TRF with extended tub bench with SBA and min cuing Gait Training Does the Patient Walk?: Yes Walk 10 feet (QC): 5 Walk 50 ft with 2 Turns(QC): 5 Walk 150 ft (QC): 5 Gait Persons Needed: 1 Gait Assistive Device: FWW kyphotic posture, slow, needs directed as to where to go Stair Training Stair Training: Handrails/: 2 handrails #of Steps: 4 4 Steps (QC): 4 Stairs: Pattern: Step to states she has assist /CGA at home for 3 steps Exercises Supine Ex: Bridging, Ankle pumps, Quad Set, Rolling, Glut sets, Heel Slides, Short Arc Quads, Scooting, Straight leg raise, Hip abd/add Supine Reps: 15 Seated Therapy Exercises: Ankle pumps, Sit to stand, Long arc quads, Hip flexion, Hip abd/add Seated Reps: 15 Treatments toileted with SBA Assessment Current Status: Good Progress PT Paste Worker Goals Paste Worker Goals PT Paste Worker Goals Time Frame: Jul 29, 2019 Roll Left & Right (QC): 6 Sit to Lying (QC): 6 Lying-Sitting on Side/Bed(QC): 6 Sit to Stand (QC): 5 Chair/Lfy-pr-Mqjvb Xfer(QC): 5 Toilet Transfer (QC): 5 Car Transfer (QC): 6 Does the Patient Walk: Yes Walk 10 feet (QC): 5 Walk 50ft with 2 Turns (QC): 5 Walk 150 ft (QC): 5 Walking 10ft on Uneven Surface: 5 1 Step (curb) (QC): 4 4 Steps (QC): 4 12 Steps (QC): 9 Picking up an Object (QC): 5 PT Plan Treatment/Plan Treatment Plan: Continue Plan of Care Treatment Plan: Bed Mobility, Concurrent Therapy, Education, Functional Activity Mynor, Functional Strength, Group Therapy, Gait, Safety, Therapeutic Exercise, Transfers Treatment Duration: Jul 29, 2019 Frequency: At least 5 of 7 days/Wk (IRF) Estimated Hrs Per Day: 1.5 hours per day Patient and/or Family Agrees t: Yes Safety Risks/Education Patient Education: Gait Training, Transfer Techniques, Steps, Correct Positioning, Disease Process, Safety Issues Teaching Recipient: Patient Teaching Methods: Demonstration, Discussion Response to Teaching: Verbalize Understanding, Return Demonstration, Reinforcement Needed Time/GCodes Time In: 800 Time Out: 900 Total Billed Treatment Time: 60 Total Billed Treatment 1,FA25m,GT15m,EX20m ORLIN EPSTEIN DIETARY AID Jul 17, 2019 09:06
--- NOTE | 2019-07-17 09:30 | Occupational Ther Daily Note ---
OT Current Status-Daily Note Subjective Pt alert, sitting in recliner. Pt agrees to therapy. No c/o pain at this time. Mental Status/Objective Patient Orientation: Person, Time ADL-Treatment Pt declines to shower, agrees to sponge bath. Pt completed own meal set up and uses regular utensils. After set up, pt able to complete own bathing, no LOB noted. Pt then ambulated with SBA to bathroom and transferred onto toilet, supervision. Completed toilet hygiene and clothing manipulation with supervision. SBA for pt to wash hands at sink. After therapy, pt sitting in recliner with call light/phone in reach. All needs met in room. Therapy Code Descriptions/Definitions Functional [place] Measure: 0=Not Assessed/NA 4=Minimal Assistance 1=Total Assistance 5=Supervision or Setup 2=Maximal Assistance 6=Modified [place] 3=Moderate Assistance 7=Complete IndependenceSCALE: Activities may be completed with or without assistive devices. 4-Lmmakcxbed-xraubms completes the activity by him/herself with no assistance from a helper. 5-Set-up or Clean-up Assistance-helper sets up or cleans up; patient completes activity. [place] assists only prior to or following the activity. 4-Supervision or Touching Assistance-helper provides verbal cues and/or touching/steadying and/or contact guard assistance as patient completes activit y. Assistance may be provided throughout the activity or intermittently. 3-Partial/Moderate Assistance-helper does LESS THAN HALF the effort. [place] lifts, holds or supports trunk or limbs, but provides less than half the effort. 2-Substantial/Maximal Assistance-helper does MORE THAN HALF the effort. [place] lifts or holds trunk or limbs and provides more than half the effort. 6-Upcratlxt-luyvkk does ALL the effort. Patient does none of the effort to complete the activity. Or, the assistance of 2 or more helpers is required for the patient to complete the activity. If activity was not attempted, code reason: 7-Patient Refused. 9-Not Applicable-not attempted and the patient did not perform the activity before the current illness, exacerbation or injury. 10-Not Attempted due to Environmental Limitations-(lack of equipment, weather restraints, etc.). 88-Not Attempted due to Medical Conditions or Safety Concerns. Eating (QC): 6 Shower/Bathe Self (QC): 5 Upper Body Dressing (QC): 5 Lower Body Dressing (QC): 5 On/Off Footwear: 5 Toileting Hygiene (QC): 4 Toilet Transfer (QC): 4 OT Short Term Goals Short Term Goals Toileting hygiene: 5 Upper body dressin OT Rn Transitional Goals Rn Transitional Goals Eating (QC): 6 Oral Hygiene (QC): 6 Toileting Hygiene (QC): 6 Shower/Bathe Self (QC): 4 Upper Body Dressing (QC): 6 Lower Body Dressing (QC): 6 On/Off Footwear (QC): 6 Additional Goals: 1-Demonstrate ADL Tasks, 2-Verbalize Understanding, 3- ImproveStrength/Mynor 1=Demonstrate adherence to instructed precautions during ADL tasks. 2=Patient will verbalize/demonstrate understanding of assistive devices/modific ations for ADL. 3=Patient will improve strength/tolerance for activity to enable patient to perform ADL's. OT Education/Plan Problem List/Assessment Assessment: Decreased Safety Aware, Impaired Self-Care Skills Discharge Recommendations Plan/Recommendations: Continue POC Treatment Plan/Plan of Care Patient would benefit from OT for education, treatment and training to promote independence in ADL's, mobility, safety and/or upper extremity function for ADL's. Plan of Care: ADL Retraining, Caregiver Training, Cognitive Retraining, Functional Mobility, Group Exercise/Act as Ind, UE Funct Exercise/Act Treatment Duration: Jul 28, 2019 Frequency: At least 5 of 7 days/Wk (IRF) Estimated Hrs Per Day: 1.5 hours per day Agreement: Yes Rehab Potential: Fair Time/GCodes Start Time: 07:00 Stop Time: 08:00 Total Time Billed (hr/min): 60 Billed Treatment Time 1 visit-ADL 4 (60 min) ANUEL LE Jul 17, 2019 09:30
[2019-07-17] MEDS: MULTIVIT W/MINERALS TAB (THERAGRAN M) PO SCH (09:55)
[2019-07-17] MEDS: PANTOPRAZOLE 40 MG (PROTONIX) TAB PO SCH (09:55)
[2019-07-17] MEDS: FUROSEMIDE 20 MG (LASIX) TAB PO SCH (09:55)
[2019-07-17] MEDS: SENNA W/DOCUSATE (SENOKOT S) TABLET PO SCH ×2 (09:56→19:56)
[2019-07-17] MEDS: DOCUSATE SODIUM 100 MG (COLACE) CAP PO SCH ×2 (09:56→19:56)
[2019-07-17] MEDS: OMEGA 3 (FISH OIL) 1000 MG CAP PO SCH (09:56)
[2019-07-17] MEDS: lisINopril 40 MG (PRINIVIL) TABLET PO SCH (09:56)
[2019-07-17] MEDS: polyethylene glycoL POWDER 17 GM (MIRALAX) PACK PO SCH (09:56)
[2019-07-17] MEDS: SPIRONOLACTONE 25 MG (ALDACTONE) TAB PO SCH (09:56)
[2019-07-17] MEDS: ENOXAPARIN 60 MG/0.6 ML (LOVENOX) SYR SC SCH ×2 (09:57→20:05)
--- NOTE | 2019-07-17 09:59 | Occupational Ther Daily Note ---
OT Current Status-Daily Note Subjective Pt alert, sitting in recliner. Pt agrees to therapy. No c/o pain at this time. Mental Status/Objective Patient Orientation: Person, Time ADL-Treatment Therapy Code Descriptions/Definitions Functional [place] Measure: 0=Not Assessed/NA 4=Minimal Assistance 1=Total Assistance 5=Supervision or Setup 2=Maximal Assistance 6=Modified [place] 3=Moderate Assistance 7=Complete IndependenceSCALE: Activities may be completed with or without assistive devices. 9-Otlmeczcrs-msdwscc completes the activity by him/herself with no assistance from a helper. 5-Set-up or Clean-up Assistance-helper sets up or cleans up; patient completes activity. [place] assists only prior to or following the activity. 4-Supervision or Touching Assistance-helper provides verbal cues and/or touching/steadying and/or contact guard assistance as patient completes activity. Assistance may be provided throughout the activity or intermittently. 3-Partial/Moderate Assistance-helper does LESS THAN HALF the effort. [place] lifts, holds or supports trunk or limbs, but provides less than half the effort. 2-Substantial/Maximal Assistance-helper does MORE THAN HALF the effort. [place] lifts or holds trunk or limbs and provides more than half the effort. 1-Beaoxgemf-tbpifo does ALL the effort. Patient does none of the effort to complete the activity. Or, the assistance of 2 or more helpers is required for the patient to complete the activity. If activity was not attempted, code reason: 7-Patient Refused. 9-Not Applicable-not attempted and the patient did not perform the activity before the current illness, exacerbation or injury. 10-Not Attempted due to Environmental Limitations-(lack of equipment, weather restraints, etc.). 88-Not Attempted due to Medical Conditions or Safety Concerns. Oral Hygiene (QC): 4 (Supervision standing at sink to complete oral care and grooming.) Toileting Hygiene (QC): 6 (Pt completed own toilet hygiene and manipulated clothing, no LOB. Safety concerns.) Toilet Transfer (QC): 6 (Safety concerns though LOB noted. Pt completes using AD.) OT Short Term Goals Short Term Goals Toileting hygiene: 5 Upper body dressin OT Cushion Mat Maker Goals Cushion Mat Maker Goals Eating (QC): 6 Oral Hygiene (QC): 6 Toileting Hygiene (QC): 6 Shower/Bathe Self (QC): 4 Upper Body Dressing (QC): 6 Lower Body Dressing (QC): 6 On/Off Footwear (QC): 6 Additional Goals: 1-Demonstrate ADL Tasks, 2-Verbalize Understanding, 3- ImproveStrength/Mynor 1=Demonstrate adherence to instructed precautions during ADL tasks. 2=Patient will verbalize/demonstrate understanding of assistive devices/modifications for ADL. 3=Patient will improve strength/tolerance for activity to enable patient to perform ADL's. OT Education/Plan Problem List/Assessment Assessment: Decreased Activ Tolerance, Decreased Safety Aware Discharge Recommendations Plan/Recommendations: Continue POC Treatment Plan/Plan of Care Patient would benefit from OT for education, treatment and training to promote independence in ADL's, mobility, safety and/or upper extremity function for ADL's. Plan of Care: ADL Retraining, Caregiver Training, Cognitive Retraining, Functional Mobility, Group Exercise/Act as Ind, UE Funct Exercise/Act Treatment Duration: Jul 28, 2019 Frequency: At least 5 of 7 days/Wk (IRF) Estimated Hrs Per Day: 1.5 hours per day Agreement: Yes Rehab Potential: Fair Time/GCodes Start Time: 09:30 Stop Time: 09:54 Total Time Billed (hr/min): 24 Billed Treatment Time 1 visit-ADL 2 (24 min) ANUEL LE Jul 17, 2019 09:59
[2019-07-17] MEDS ORDERED: RT-ALBUTEROL SULF 2.5 MG/3 ML PRE-MIX VIAL INH PRN (10:00)
--- NOTE | 2019-07-17 10:13 | Speech Therapy Daily Note ---
Speech Daily Progress Note Subjective Date Seen by Provider: Jul 17, 2019 Time Seen by Provider: 09:00 Patient was alert and cooperative for all therapy tasks. Patient reported that she is feeling better however her memory is still difficult. Patient was sitting upright in her chair for the duration of treatment tasks. Objective Patient completed memory tasks pertaining to familial structure and living situation with 80% accuracy with moderate cues. Assessment Assessment Current Status: Good Progress Treatment Plan Continue Plan of Care Speech Short Term Goals Short Term Goals Short Term Goals 1. Patient will complete memory tasks with 90% accuracy with minimal cues. 2. Patient will complete problem-solving tasks with 90% accuracy with minimal cues. 3. Patient will complete safety awareness tasks with 90% accuracy with minimal cues. Speech Heavy Duty Mechanic Farm Equipment Goals Prison Goals Patient will improve cognitive-communication necessary for safety and daily living tasks with minimal assist. Speech-Plan Patient/Family Goals Patient/Family Goals: Patient reports that she would like to return home to previous living sitation and independence. Treatment Plan Speech Therapy Treatment Plan: Continue Plan of Care Treatment Duration: Jul 21, 2019 Frequency: 5 times per week Estimated Hrs Per Day: .5 hour per day Rehab Potential: Fair Barriers to Learning: Moderate cognitive deficits Pt/Family Agrees to Plan: Yes Safety Risks/Education Teaching Recipient: Patient Teaching Methods: Demonstration, Discussion Response to Teaching: Verbalize Understanding Education Topics Provided: Patient was provided education on memory strategies she can use while in the ARU. Time Speech Therapy Time In: 09:00 Speech Therapy Time Out: 09:30 Total Billed Time: 30 Billed Treatment Time [address] Jul 17, 2019 10:13
--- NOTE | 2019-07-17 10:30 | NUR ---
Pastoral Care Visit.
--- NOTE | 2019-07-17 14:00 | Physical Therapy Daily Note ---
PT Daily Note-Current Subjective Pt. agrees to Rx, wants to walk and go to bathroom then lay down in bed after. Pain Location: No Pain Reported Transfers SCALE: Activities may be completed with or without assistive devices. 0-Tljequbasi-zpbiyda completes the activity by him/herself with no assistance from a helper. 5-Set-up or Clean-up Assistance-helper sets up or cleans up; patient completes a ctivity. [place] assists only prior to or following the activity. 4-Supervision or Touching Assistance-helper provides verbal cues and/or touching/steadying and/or contact guard assistance as patient completes activity. Assistance may be provided throughout the activity or intermittently. 3-Partial/Moderate Assistance-helper does LESS THAN HALF the effort. [place] lifts, holds or supports trunk or limbs, but provides less than half the effort. 2-Substantial/Maximal Assistance-helper does MORE THAN HALF the effort. [place] lifts or holds trunk or limbs and provides more than half the effort. 9-Sdzvxdltm-bjtopo does ALL the effort. Patient does none of the effort to complete the activity. Or, the assistance of 2 or more helpers is required for the patient to complete the activity. If activity was not attempted, code reason: 7-Patient Refused. 9-Not Applicable-not attempted and the patient did not perform the activity before the current illness, exacerbation or injury. 10-Not Attempted due to Environmental Limitations-(lack of equipment, weather restraints, etc.). 88-Not Attempted due to Medical Conditions or Safety Concerns. toilet TRFs SBA, manages pants and cleaning indep, washed hands indep, sit to sup SBA to mod I Gait Training Does the Patient Walk?: Yes Gait Assistive Device: FWW 75ftx2 SBA, kyphotic, no LOB Exercises Supine Ex: Ankle pumps, Quad Set, Heel Slides, Hip abd/add Supine Reps: 12 Assessment Current Status: Good Progress needs guided for all PT Sustainability Engineer Goals Sustainability Engineer Goals PT Fdc Goals Time Frame: Jul 29, 2019 Roll Left & Right (QC): 6 Sit to Lying (QC): 6 Lying-Sitting on Side/Bed(QC): 6 Sit to Stand (QC): 5 Chair/Ttu-cd-Yjmwh Xfer(QC): 5 Toilet Transfer (QC): 5 Car Transfer (QC): 6 Does the Patient Walk: Yes Walk 10 feet (QC): 5 Walk 50ft with 2 Turns (QC): 5 Walk 150 ft (QC): 5 Walking 10ft on Uneven Surface: 5 1 Step (curb) (QC): 4 4 Steps (QC): 4 12 Steps (QC): 9 Picking up an Object (QC): 5 PT Plan Treatment/Plan Treatment Plan: Continue Plan of Care Treatment Plan: Bed Mobility, Concurrent Therapy, Education, Functional Activity M[place], Functional Strength, Group Therapy, Gait, Safety, Therapeutic Exercise, Transfers Treatment Duration: Jul 29, 2019 Frequency: At least 5 of 7 days/Wk (IRF) Estimated Hrs Per Day: 1.5 hours per day Patient and/or Family Agrees t: Yes Safety Risks/Education Patient Education: Gait Training, Transfer Techniques, Correct Positioning, Disease Process, Safety Issues Teaching Recipient: Patient Teaching Methods: Demonstration, Discussion Response to Teaching: Verbalize Understanding, Return Demonstration, Reinforcement Needed Time/GCodes Time In: 1305 Time Out: 1320 Total Billed Treatment Time: 15 Total Billed Treatment 1,FA15m ORLIN EPSTEIN LVN Jul 17, 2019 14:00
[2019-07-17] MEDS: amLODIPine 10 MG (NORVASC) TAB PO SCH (17:36)
[2019-07-17] MEDS: warFARin 7.5 MG (COUMADIN) TAB PO SCH (17:36)
[2019-07-17 17:48] VITALS: BP 119/70
[2019-07-17] MEDS ORDERED: warFARin 5 MG (COUMADIN) TAB PO SCH (18:00)
[2019-07-17] MEDS: ALPRAZolam 0.25 MG (XANAX) TAB PO SCH (20:05)
[2019-07-18] MEDS: ONDANSETRON 4 MG (ZOFRAN) ORAL DISSOLVE TAB PO PRN (03:11)
[2019-07-18 05:21] VITALS: BP 124/69
[2019-07-18] MEDS: ASCORBIC ACID (VIT C) 500 MG TABLET PO SCH ×2 (05:44→18:06)
--- NOTE | 2019-07-18 05:45 | NUR ---
Pt refused AM Vitamin C d/t nausea.
--- NOTE | 2019-07-18 09:00 | Occupational Ther Daily Note ---
OT Current Status-Daily Note Subjective Pt alert, sitting in recliner. Pt agrees to therapy. No c/o pain. Mental Status/Objective Patient Orientation: Person, Place, Time, Situation ADL-Treatment Pt appears highly anxious during session. Pt agrees to shower. Pt ambulated to bathroom using FWW and transferred to/from toilet with supervision. Pt completed toileting hygiene and clothing manipulation, supervision. Pt transferred into shower with SBA using AD. Pt completed shower with SBA using AD. Pt completed dressing with SBA after set up. SBA standing at sink to complete oral care. No LOB noted throughout session. Discussed what tasks pt completes at home by self, pt stays with daughter. Pt states that she uses the microwave to warm up water for tea, uses nonspill cup. Does get snacks to eat using FWW with walker basket to transfer food or drink. Will continue to work on increasing activity tolerance and strengthening to be able to complete safely. Therapy Code Descriptions/Definitions Functional [place] Measure: 0=Not Assessed/NA 4=Minimal Assistance 1=Total Assistance 5=Supervision or Setup 2=Maximal Assistance 6=Modified [place] 3=Moderate Assistance 7=Complete IndependenceSCALE: Activities may be completed with or without assistive devices. 9-Bjyltluzjf-osdukwg completes the activity by him/herself with no assistance from a helper. 5-Set-up or Clean-up Assistance-helper sets up or cleans up; patient completes activity. [place] assists only prior to or following the activity. 4-Supervision or Touching Assistance-helper provides verbal cues and/or touching/steadying and/or contact guard assistance as patient completes activity. Assistance may be provided throughout the activity or intermittently. 3-Partial/Moderate Assistance-helper does LESS THAN HALF the effort. [place] lifts, holds or supports trunk or limbs, but provides less than half the effort. 2-Substantial/Maximal Assistance-helper does MORE THAN HALF the effort. [place] lifts or holds trunk or limbs and provides more than half the effort. 5-[place] does ALL the effort. Patient does none of the effort to complete the activity. Or, the assistance of 2 or more helpers is required for the patient to complete the activity. If activity was not attempted, code reason: 7-Patient Refused. 9-Not Applicable-not attempted and the patient did not perform the activity before the current illness, exacerbation or injury. 10-Not Attempted due to Environmental Limitations-(lack of equipment, weather restraints, etc.). 88-Not Attempted due to Medical Conditions or Safety Concerns. Oral Hygiene (QC): 4 Shower/Bathe Self (QC): 4 Upper Body Dressing (QC): 4 Lower Body Dressing (QC): 4 On/Off Footwear: 4 Toileting Hygiene (QC): 4 Toilet Transfer (QC): 4 Other Treatment Skilled instruction to complete 2 light resistance theraband exercises. Pt unable to remember technique and what exercises to complete after completing just one set. After session, pt sitting in recliner with call light/phone in reach. All needs met in room. OT Short Term Goals Short Term Goals Toileting hygiene: 5 Upper body dressin OT Custodial Goals Custodial Goals Eating (QC): 6 Oral Hygiene (QC): 6 Toileting Hygiene (QC): 6 Shower/Bathe Self (QC): 4 Upper Body Dressing (QC): 6 Lower Body Dressing (QC): 6 On/Off Footwear (QC): 6 Additional Goals: 1-Demonstrate ADL Tasks, 2-Verbalize Understanding, 3- ImproveStrength/[place] 1=Demonstrate adherence to instructed precautions during ADL tasks. 2=Patient will verbalize/demonstrate understanding of assistive devices/modif ications for ADL. 3=Patient will improve strength/tolerance for activity to enable patient to perform ADL's. OT Education/Plan Problem List/Assessment Assessment: Decreased Activ Tolerance, Decreased UE Strength, Impaired Cognition, Impaired Self-Care Skills Discharge Recommendations Plan/Recommendations: Continue POC Treatment Plan/Plan of Care Patient would benefit from OT for education, treatment and training to promote independence in ADL's, mobility, safety and/or upper extremity function for ADL's. Plan of Care: ADL Retraining, Caregiver Training, Cognitive Retraining, Functional Mobility, Group Exercise/Act as Ind, UE Funct Exercise/Act Treatment Duration: Jul 28, 2019 Frequency: At least 5 of 7 days/Wk (IRF) Estimated Hrs Per Day: 1.5 hours per day Agreement: Yes Rehab Potential: Fair Time/GCodes Start Time: 07:30 Stop Time: 08:45 Total Time Billed (hr/min): 75 Billed Treatment Time 1 visit-ADL 4 (60 min) EX 1 (15 min) ANUEL LE Jul 18, 2019 09:00
[2019-07-18] MEDS: ENOXAPARIN 60 MG/0.6 ML (LOVENOX) SYR SC SCH ×2 (09:14→21:11)
[2019-07-18] MEDS: lisINopril 40 MG (PRINIVIL) TABLET PO SCH (09:14)
[2019-07-18] MEDS: SPIRONOLACTONE 25 MG (ALDACTONE) TAB PO SCH (09:15)
[2019-07-18] MEDS: FUROSEMIDE 20 MG (LASIX) TAB PO SCH (09:15)
[2019-07-18] MEDS: OMEGA 3 (FISH OIL) 1000 MG CAP PO SCH (09:15)
[2019-07-18] MEDS: PANTOPRAZOLE 40 MG (PROTONIX) TAB PO SCH (09:15)
[2019-07-18] MEDS: MULTIVIT W/MINERALS TAB (THERAGRAN M) PO SCH (09:17)
[2019-07-18] MEDS: SENNA W/DOCUSATE (SENOKOT S) TABLET PO SCH ×2 (09:27→21:02)
[2019-07-18] MEDS: polyethylene glycoL POWDER 17 GM (MIRALAX) PACK PO SCH (09:27)
[2019-07-18] MEDS: DOCUSATE SODIUM 100 MG (COLACE) CAP PO SCH ×2 (09:27→21:02)
--- NOTE | 2019-07-18 09:37 | PM&R Progress Note ---
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 Checked meds and labs After rounds she reported urinary frequency and itching vaginal area and daughter reported h/o UTI and yeast infections so will obtain UA sterile in/out cath and start Monistat cream BID Review of Systems Genitourinary: Dysuria, Frequency, Other (vaginal irritation) Objective Exam Vital Signs Vital Signs Date Time Temp Pulse Resp B/P (MAP) Pulse Ox O2 Delivery O2 Flow Rate FiO2 07/18/19 16:00 37.2 76 14 107/61 (76) 95 Room Air Capillary Refill : Less Than 3 Seconds General Appearance: No Apparent Distress, WD/WN, Chronically ill, Thin, Other (frail) HEENT: PERRL/EOMI, Normal ENT Inspection, Pharynx Normal Neck: Full Range of Motion, Normal Inspection, Non Tender, Supple, Carotid Bruit Respiratory: Chest Non Tender, Lungs Clear, Normal Breath Sounds, No Accessory Muscle Use, No Respiratory Distress Cardiovascular: Regular Rate, Rhythm, No Edema, No Gallop, No JVD, No Murmur, Normal Peripheral Pulses Gastrointestinal: Normal Bowel Sounds, No Organomegaly, No Pulsatile Mass, Non Tender, Soft Back: Normal Inspection, No CVA Tenderness, No Vertebral Tenderness Extremity: Normal Capillary Refill, Normal Inspection, Normal Range of Motion, Non Tender, No Calf Tenderness, No Pedal Edema Neurologic/Psychiatric: Alert, Oriented x3, No Motor/Sensory Deficits, Normal Mood/Affect, sharepoint net developer II-XII Norm as Tested, Disoriented (subtle), Motor Weakness (generalized weakness all extremities) Skin: Normal Color, Warm/Dry Lymphatic: No Adenopathy Results/Procedures Lab Patient resulted labs reviewed. FIM Transfers Therapy Code Descriptions/Definitions Functional [place] Measure: 0=Not Assessed/NA 4=Minimal Assistance 1=Total Assistance 5=Supervision or Setup 2=Maximal Assistance 6=Modified [place] 3=Moderate Assistance 7=Complete IndependenceSCALE: Activities may be completed with or without assistive devices. 2-Yvkqelccqv-ertdbkd completes the activity by him/herself with no assistance from a helper. 5-Set-up or Clean-up Assistance-helper sets up or cleans up; patient completes activity. [place] assists only prior to or following the activity. 4-Supervision or Touching Assistance-helper provides verbal cues and/or touching/steadying and/or contact guard assistance as patient completes activity. Assistance may be provided throughout the activity or intermittently. 3-Partial/Moderate Assistance-helper does LESS THAN HALF the effort. [place] lifts, holds or supports trunk or limbs, but provides less than half the effort. 2-Substantial/Maximal Assistance-helper does MORE THAN HALF the effort. [place] lifts or holds trunk or limbs and provides more than half the effort. 9-[place]-ywgwdg does ALL the effort. Patient does none of the effort to complete the activity. Or, the assistance of 2 or more helpers is required for the patient to complete the activity. If activity was not attempted, code reason: 7-Patient Refused. 9-Not Applicable-not attempted and the patient did not perform the activity before the current illness, exacerbation or injury. 10-Not Attempted due to Environmental Limitations-(lack of equipment, weather restraints, etc.). 88-Not Attempted due to Medical Conditions or Safety Concerns. Roll Left to Right (QC): 6 Sit to Lying (QC): 6 Sit to Stand (QC): 6 Chair/Puf-ic-Ooqdr Xfer(QC): 5 Car Transfer (QC): 5 Gait Training Does the Patient Walk?: Yes Distance: 200', 120' Walk 10 feet (QC): 5 Walk 50 ft with 2 Turns(QC): 5 Walk 150 ft (QC): 5 Walking 10ft/uneven surface-QC: 4 Gait Persons Needed: 1 Gait Assistive Device: FWW Wheelchair Training Does the Pt Use a Wheelchair?: No Stair Training Stair Training: Handrails/: 2 handrails #of Steps: 4 1 Step (curb) (QC): 3 4 Steps (QC): 4 12 Steps (QC): 9 Stairs: Pattern: Step to Balance Picking up an Object (QC): 5 ADL-Treatment Eating (QC): 6 Oral Hygiene (QC): 4 (Supervision standing at sink to complete oral care and grooming.) Shower/Bathe Self (QC): 5 Upper Body Dressing (QC): 5 Lower Body Dressing (QC): 5 On/Off Footwear (QC): 5 Toileting Hygiene (QC): 6 (Pt completed own toilet hygiene and manipulated clothing, no LOB. Safety concerns.) Toilet Transfer (QC): 6 (Safety concerns though LOB noted. Pt completes using AD.) Assessment/Plan Assessment and Plan Assess & Plan/Chief Complaint Assessment: Severe debility Ischemic bowel disease Confusion Hypertension Fall risk Coumadin treatment with Lovenox bridge currently Plan: Lovenox bridge Coumadin Inpatient rehabilitation protocol Monitor confusion Fall risk Monitor INR (1) Myopathy (2) Ischemic bowel disease Status: Acute (3) Dementia Status: Acute (4) Warfarin prescribed at discharge ROBERT WEBSTER DO Jul 18, 2019 09:37
--- NOTE | 2019-07-18 11:18 | Physical Therapy Daily Note ---
PT Daily Note-Current Subjective Pt sitting in recliner upon arrival. Pt agrees to PT. Pain Numeric Pain Scale: 5-Moderate Pain Location: Lower Location Body Site: Back Pain Description: Ache, Tightness Mental Status Patient Orientation: Person, Place, Time, Situation Transfers SCALE: Activities may be completed with or without assistive devices. 6-Rlaxbcshkc-sxvihjm completes the activity by him/herself with no assistance from a helper. 5-Set-up or Clean-up Assistance-helper sets up or cleans up; patient completes activity. [place] assists only prior to or following the activity. 4-Supervision or Touching Assistance-helper provides verbal cues and/or touchi ng/steadying and/or contact guard assistance as patient completes activity. Assistance may be provided throughout the activity or intermittently. 3-Partial/Moderate Assistance-helper does LESS THAN HALF the effort. [place] lifts, holds or supports trunk or limbs, but provides less than half the effort. 2-Substantial/Maximal Assistance-helper does MORE THAN HALF the effort. [place] lifts or holds trunk or limbs and provides more than half the effort. 6-Iyqgvdodb-bkatjp does ALL the effort. Patient does none of the effort to complete the activity. Or, the assistance of 2 or more helpers is required for the patient to complete the activity. If activity was not attempted, code reason: 7-Patient Refused. 9-Not Applicable-not attempted and the patient did not perform the activity before the current illness, exacerbation or injury. 10-Not Attempted due to Environmental Limitations-(lack of equipment, weather restraints, etc.). 88-Not Attempted due to Medical Conditions or Safety Concerns. Sit to Stand (QC): 5 Weight Bearing Right Lower Extremity: Right Full Weight Bearing Left Lower Extremity: Left Full Weight Bearing Gait Training Does the Patient Walk?: Yes Distance: 150' Walk 10 feet (QC): 5 Walk 50 ft with 2 Turns(QC): 5 Walk 150 ft (QC): 5 Gait Persons Needed: 1 Gait Assistive Device: FWW Pt walks with kyphotic posture but FRUIT CANNER encourages pt to walk w/in FWW for improved posture. Stair Training Stair Training: Handrails/: 2 handrails #of Steps: 4 1 Step (curb) (QC): 5 4 Steps (QC): 5 Stairs: Pattern: Step to Exercises Seated Therapy Exercises: Ankle pumps, Long arc quads, Hip flexion, Kicking activity NuStep Minutes: 10 NuStep Workload: 4 Treatments Pt transfers from recliner to standing. Pt uses restroom then ambulates in hallway. Pt uses NuStep for 10m at WL 4 then completes Seated Ex. Pt takes RB then ambulates 4 steps. Pt ambulates in hallway before returning to room to rest. Pt has all needs met, call light in hand. Assessment Current Status: Fair Progress Pt continues to demonstrate confusion, needing redirection during Rx. for sequencing and safety. PT Credit Risk Officer Goals Usp Goals PT Usp Goals Time Frame: Jul 29, 2019 Roll Left & Right (QC): 6 Sit to Lying (QC): 6 Lying-Sitting on Side/Bed(QC): 6 Sit to Stand (QC): 5 Chair/Fjd-jk-Kvzef Xfer(QC): 5 Toilet Transfer (QC): 5 Car Transfer (QC): 6 Does the Patient Walk: Yes Walk 10 feet (QC): 5 Walk 50ft with 2 Turns (QC): 5 Walk 150 ft (QC): 5 Walking 10ft on Uneven Surface: 5 1 Step (curb) (QC): 4 4 Steps (QC): 4 12 Steps (QC): 9 Picking up an Object (QC): 5 PT Plan Problem List Problem List: Activity Tolerance, Functional Strength, Safety, Gait Treatment/Plan Treatment Plan: Continue Plan of Care Treatment Plan: Bed Mobility, Concurrent Therapy, Education, Functional Activity [place], Functional Strength, Group Therapy, Gait, Safety, Therapeutic Exercise, Transfers Treatment Duration: Jul 29, 2019 Frequency: At least 5 of 7 days/Wk (IRF) Estimated Hrs Per Day: 1.5 hours per day Patient and/or Family Agrees t: Yes Safety Risks/Education Patient Education: Gait Training, Transfer Techniques, Correct Positioning, Safety Issues Teaching Recipient: Patient Teaching Methods: Discussion Response to Teaching: Verbalize Understanding Time/GCodes Time In: 1015 Time Out: 1115 Total Billed Treatment Time: 60 Total Billed Treatment 1, GT (15m), FA (15m) & EX x2 (30m) MAYUR CABALLERO FRUIT CANNER Jul 18, 2019 11:18
--- NOTE | 2019-07-18 13:23 | Physical Therapy Daily Note ---
PT Daily Note-Current Subjective Pt in restroom upon arrival. Pt agrees to PT. Mental Status Patient Orientation: Person, Confused, Place Transfers SCALE: Activities may be completed with or without assistive devices. 7-Gwfiiecxin-suhhoox completes the activity by him/herself with no assistance from a helper. 5-Set-up or Clean-up Assistance-helper sets up or cleans up; patient completes activity. [place] assists only prior to or following the activity. 4-Supervision or Touching Assistance-helper provides verbal cues and/or touc alvin/steadying and/or contact guard assistance as patient completes activity. Assistance may be provided throughout the activity or intermittently. 3-Partial/Moderate Assistance-helper does LESS THAN HALF the effort. [place] lifts, holds or supports trunk or limbs, but provides less than half the effort. 2-Substantial/Maximal Assistance-helper does MORE THAN HALF the effort. [place] lifts or holds trunk or limbs and provides more than half the effort. 5-Oxbpbvcln-vjugky does ALL the effort. Patient does none of the effort to complete the activity. Or, the assistance of 2 or more helpers is required for the patient to complete the activity. If activity was not attempted, code reason: 7-Patient Refused. 9-Not Applicable-not attempted and the patient did not perform the activity before the current illness, exacerbation or injury. 10-Not Attempted due to Environmental Limitations-(lack of equipment, weather restraints, etc.). 88-Not Attempted due to Medical Conditions or Safety Concerns. Toilet Transfer (QC): 5 Weight Bearing Right Lower Extremity: Right Full Weight Bearing Left Lower Extremity: Left Full Weight Bearing Gait Training Does the Patient Walk?: Yes Distance: 15' Walk 10 feet (QC): 5 Gait Assistive Device: FWW Treatments Pt toilets then returns to recliner to rest. Pt has all needs met, call light in hand at end of Rx. Assessment Current Status: Good Progress Pt has moments of confusion and needs redirection to complete task. PT Outside Plant Cable Engineer Goals Group Home Goals PT Group Home Goals Time Frame: Jul 29, 2019 Roll Left & Right (QC): 6 Sit to Lying (QC): 6 Lying-Sitting on Side/Bed(QC): 6 Sit to Stand (QC): 5 Chair/Sho-in-Roxob Xfer(QC): 5 Toilet Transfer (QC): 5 Car Transfer (QC): 6 Does the Patient Walk: Yes Walk 10 feet (QC): 5 Walk 50ft with 2 Turns (QC): 5 Walk 150 ft (QC): 5 Walking 10ft on Uneven Surface: 5 1 Step (curb) (QC): 4 4 Steps (QC): 4 12 Steps (QC): 9 Picking up an Object (QC): 5 PT Plan Problem List Problem List: Activity Tolerance, Functional Strength, Safety Treatment/Plan Treatment Plan: Continue Plan of Care Treatment Plan: Bed Mobility, Concurrent Therapy, Education, Functional Activity [place], Functional Strength, Group Therapy, Gait, Safety, Therapeutic Exercise, Transfers Treatment Duration: Jul 29, 2019 Frequency: At least 5 of 7 days/Wk (IRF) Estimated Hrs Per Day: 1.5 hours per day Patient and/or Family Agrees t: Yes Safety Risks/Education Patient Education: Gait Training, Transfer Techniques, Correct Positioning, Safety Issues Teaching Recipient: Patient Teaching Methods: Discussion Response to Teaching: Verbalize Understanding Time/GCodes Time In: 1300 Time Out: 1315 Total Billed Treatment Time: 15 Total Billed Treatment 1, FA (15m) MAYUR CABALLERO CUSTOMER RELATIONSHIP SPECIALIST Jul 18, 2019 13:23
--- NOTE | 2019-07-18 14:28 | Speech Therapy Daily Note ---
Speech Daily Progress Note Subjective Date Seen by Provider: Jul 18, 2019 Time Seen by Provider: 09:00 Patient was alert, pleasant, and cooperative for all therapy tasks. Patient reported that she is feeling much better today. Patient sat upright in her chair for the duration of treatment. Objective Patient completed safety awareness tasks pertaining to hospital room call light and phone with 90% accuracy. Patient completed memory tasks pertaining to delayed and immediate recall with 80% accuracy with moderate cues. Assessment Assessment Current Status: Good Progress Treatment Plan Continue Plan of Care Speech Short Term Goals Short Term Goals Short Term Goals 1. Patient will complete memory tasks with 90% accuracy with minimal cues. 2. Patient will complete problem-solving tasks with 90% accuracy with minimal cues. 3. Patient will complete safety awareness tasks with 90% accuracy with minimal cues. Speech Senior Living Goals Senior Living Goals Patient will improve cognitive-communication necessary for safety and daily living tasks with minimal assist. Speech-Plan Patient/Family Goals Patient/Family Goals: Patient reports that she wishes to return home to previous level of independence and mobility. Treatment Plan Speech Therapy Treatment Plan: Continue Plan of Care Treatment Duration: Jul 21, 2019 Frequency: 5 times per week Estimated Hrs Per Day: .5 hour per day Rehab Potential: Fair Barriers to Learning: Moderate cognitive deficits Pt/Family Agrees to Plan: Yes Safety Risks/Education Teaching Recipient: Patient Teaching Methods: Demonstration, Discussion Response to Teaching: Verbalize Understanding, Return Demonstration Education Topics Provided: Patient was provided education on utilization of memory strategies of calendar and daily schedule. Time Speech Therapy Time In: 09:00 Speech Therapy Time Out: 09:30 Total Billed Time: 30 Billed Treatment Time [address] Jul 18, 2019 14:28
[2019-07-18] MEDS: ACETAMINOPHEN 325 MG TABLET PO PRN (14:45)
[2019-07-18 16:00] VITALS: BP 107/61
[2019-07-18] MEDS: amLODIPine 10 MG (NORVASC) TAB PO SCH (18:06)
[2019-07-18] MEDS: warFARin 7.5 MG (COUMADIN) TAB PO SCH (18:06)
--- NOTE | 2019-07-18 20:00 | NUR ---
PATIENT COMPLAINS OF URINARY ITCHING AND BURNING THIS AFTERNOON. DAUGHTER STATES SHE GETS FREQUENT UTI'S AND YEAST INFECTIONS. DR. WEBSTER NOTIFIED. STRAIGHT CATH DONE FOR UA AND STARTED ON MONISTAT CREAM.
[2019-07-18] MEDS: ALPRAZolam 0.25 MG (XANAX) TAB PO SCH (21:02)
[2019-07-18] MEDS: MICONAZOLE NITRATE 2% CRM 30 GM TP SCH (21:03)
[2019-07-18 21:04] LABS: BILIRUBIN,URINE NEGATIVE (NEGATIVE); CLARITY,URINE CLEAR; COLOR,URINE YELLOW; GLUCOSE, URINE (UA) NEGATIVE (NEGATIVE); KETONES,URINE NEGATIVE (NEGATIVE); LEUKOCYTE ESTERASE ,URINE NEGATIVE (NEGATIVE); NITRITE,URINE NEGATIVE (NEGATIVE); PH,URINE 6.5 (5-9); PROTEIN,URINE NEGATIVE (NEGATIVE)
[2019-07-18 21:13] LABS: BACTERIA,URINE NEGATIVE /HPF
[2019-07-19 05:48] LABS: INR 1.2 (0.8-1.4)
[2019-07-19] MEDS: ASCORBIC ACID (VIT C) 500 MG TABLET PO SCH ×2 (06:09→17:35)
[2019-07-19 06:50] VITALS: BP 115/60
--- NOTE | 2019-07-19 08:31 | Occupational Ther Daily Note ---
OT Current Status-Daily Note Subjective Pt alert, sitting in recliner. Pt agrees to therapy. No c/o pain at this time. Mental Status/Objective Patient Orientation: Person, Place, Time, Situation ADL-Treatment Pt has difficulty with STM and new situations. Pt is able to follow directions and complete daily functional tasks independently with no LOB. Pt completes toileting transfer and toileting x2, mod I. After set up, pt able to complete donning/doffing clothing mod I using FWW and grabbar for stability in standing. Pt completed sponge bath, declined shower today, by self after set up. Pt completed oral care sitting at sink. Therapy Code Descriptions/Definitions Functional [place] Measure: 0=Not Assessed/NA 4=Minimal Assistance 1=Total Assistance 5=Supervision or Setup 2=Maximal Assistance 6=Modified [place] 3=Moderate Assistance 7=Complete IndependenceSCALE: Activities may be completed with or without assistive devices. 6-Jvbkgulmdk-jijlgbe completes the activity by him/herself with no assistance from a helper. 5-Set-up or Clean-up Assistance-helper sets up or cleans up; patient completes activity. [place] assists only prior to or following the activity. 4-Supervision or Touching Assistance-helper provides verbal cues and/or touching/steadying and/or contact guard assistance as patient completes activit y. Assistance may be provided throughout the activity or intermittently. 3-Partial/Moderate Assistance-helper does LESS THAN HALF the effort. [place] lifts, holds or supports trunk or limbs, but provides less than half the effort. 2-Substantial/Maximal Assistance-helper does MORE THAN HALF the effort. [place] lifts or holds trunk or limbs and provides more than half the effort. 3-Qigatexqp-xjgojq does ALL the effort. Patient does none of the effort to complete the activity. Or, the assistance of 2 or more helpers is required for the patient to complete the activity. If activity was not attempted, code reason: 7-Patient Refused. 9-Not Applicable-not attempted and the patient did not perform the activity before the current illness, exacerbation or injury. 10-Not Attempted due to Environmental Limitations-(lack of equipment, weather restraints, etc.). 88-Not Attempted due to Medical Conditions or Safety Concerns. Eating (QC): 6 (Completes own set up and uses regular utensils to eat.) Oral Hygiene (QC): 6 Shower/Bathe Self (QC): 5 Upper Body Dressing (QC): 5 Lower Body Dressing (QC): 5 On/Off Footwear: 5 Toileting Hygiene (QC): 6 Toilet Transfer (QC): 6 Other Treatment Pt ambulated to therapy gym using FWW. Pt worked on stabilizing self using counter to transport items without FWW. No LOB noted during tasks. After therapy, pt sitting in recliner with call light/phone in reach. All needs met in room. OT Short Term Goals Short Term Goals Toileting hygiene: 5 Upper body dressin OT [facility] Goals Manager Pulmonary Goals Eating (QC): 6 Oral Hygiene (QC): 6 Toileting Hygiene (QC): 6 Shower/Bathe Self (QC): 4 Upper Body Dressing (QC): 6 Lower Body Dressing (QC): 6 On/Off Footwear (QC): 6 Additional Goals: 1-Demonstrate ADL Tasks, 2-Verbalize Understanding, 3- ImproveStrength/[place] 1=Demonstrate adherence to instructed precautions during ADL tasks. 2=Patient will verbalize/demonstrate understanding of assistive devices/modifications for ADL. 3=Patient will improve strength/tolerance for activity to enable patient to perform ADL's. OT Education/Plan Problem List/Assessment Assessment: Decreased Activ Tolerance, Impaired Self-Care Skills Discharge Recommendations Plan/Recommendations: Continue POC Treatment Plan/Plan of Care Patient would benefit from OT for education, treatment and training to promote independence in ADL's, mobility, safety and/or upper extremity function for ADL's. Plan of Care: ADL Retraining, Caregiver Training, Cognitive Retraining, Functional Mobility, Group Exercise/Act as Ind, UE Funct Exercise/Act Treatment Duration: Jul 28, 2019 Frequency: At least 5 of 7 days/Wk (IRF) Estimated Hrs Per Day: 1.5 hours per day Agreement: Yes Rehab Potential: Fair Time/GCodes Start Time: 07:15 Stop Time: 08:30 Total Time Billed (hr/min): 75 Billed Treatment Time 1 visit-ADL 4 (65 min) FA 1 (10 min) ANUEL LE Jul 19, 2019 08:31
[2019-07-19 09:39] VITALS: BP 115/60
--- NOTE | 2019-07-19 09:45 | PM&R Progress Note ---
Subjective HPI/CC On Admission Date Seen by Provider: Jul 19, 2019 Time Seen by Provider: 09:30 Subjective/Events-last exam Pt doing well. Had some incontinence last night. UA was negative for any type of UTI since she was having urinary frequency and has a history of UTIs. Having yeast infection issues so placed on Diflucan and Monistat cream. No other problems reported. 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 with extractor loader and unloader therapy notes Checked meds and labs Review of Systems General: Fatigue Genitourinary: Dysuria Neurological: Confusion Objective Exam Vital Signs Vital Signs Date Time Temp Pulse Resp B/P (MAP) Pulse Ox O2 Delivery O2 Flow Rate FiO2 07/19/19 17:53 35.9 59 20 109/63 (78) 98 Room Air Capillary Refill : Less Than 3 Seconds General Appearance: No Apparent Distress, WD/WN, Chronically ill, Thin, Other (frail) HEENT: PERRL/EOMI, Normal ENT Inspection, Pharynx Normal Neck: Full Range of Motion, Normal Inspection, Non Tender, Supple, Carotid Bruit Respiratory: Chest Non Tender, Lungs Clear, Normal Breath Sounds, No Accessory Muscle Use, No Respiratory Distress Cardiovascular: Regular Rate, Rhythm, No Edema, No Gallop, No JVD, No Murmur, Normal Peripheral Pulses Gastrointestinal: Normal Bowel Sounds, No Organomegaly, No Pulsatile Mass, Non Tender, Soft Back: Normal Inspection, No CVA Tenderness, No Vertebral Tenderness Extremity: Normal Capillary Refill, Normal Inspection, Normal Range of Motion, Non Tender, No Calf Tenderness, No Pedal Edema Neurologic/Psychiatric: Alert, Oriented x3, No Motor/Sensory Deficits, Normal Mood/Affect, auto parts manager II-XII Norm as Tested, Disoriented (subtle), Motor Weakness (generalized weakness all extremities) Skin: Normal Color, Warm/Dry Lymphatic: No Adenopathy Results/Procedures Lab Patient resulted labs reviewed. FIM Transfers Therapy Code Descriptions/Definitions Functional [place] Measure: 0=Not Assessed/NA 4=Minimal Assistance 1=Total Assistance 5=Supervision or Setup 2=Maximal Assistance 6=Modified [place] 3=Moderate Assistance 7=Complete IndependenceSCALE: Activities may be completed with or without assistive devices. 0-Qvncnworht-dtugslv completes the activity by him/herself with no assistance from a helper. 5-Set-up or Clean-up Assistance-helper sets up or cleans up; patient completes activity. [place] assists only prior to or following the activity. 4-Supervision or Touching Assistance-helper provides verbal cues and/or touching/steadying and/or contact guard assistance as patient completes activity. Assistance may be provided throughout the activity or intermittently. 3-Partial/Moderate Assistance-helper does LESS THAN HALF the effort. [place] lifts, holds or supports trunk or limbs, but provides less than half the effort. 2-Substantial/Maximal Assistance-helper does MORE THAN HALF the effort. [place] lifts or holds trunk or limbs and provides more than half the effort. 6-Vopilmqru-wgasmr does ALL the effort. Patient does none of the effort to complete the activity. Or, the assistance of 2 or more helpers is required for the patient to complete the activity. If activity was not attempted, code reason: 7-Patient Refused. 9-Not Applicable-not attempted and the patient did not perform the activity before the current illness, exacerbation or injury. 10-Not Attempted due to Environmental Limitations-(lack of equipment, weather restraints, etc.). 88-Not Attempted due to Medical Conditions or Safety Concerns. Roll Left to Right (QC): 6 Sit to Lying (QC): 6 Sit to Stand (QC): 5 Chair/Nqk-tt-Kwgjx Xfer(QC): 5 Car Transfer (QC): 5 Gait Training Does the Patient Walk?: Yes Distance: 150' Walk 10 feet (QC): 5 Walk 50 ft with 2 Turns(QC): 5 Walk 150 ft (QC): 5 Walking 10ft/uneven surface-QC: 4 Gait Persons Needed: 1 Gait Assistive Device: FWW Wheelchair Training Does the Pt Use a Wheelchair?: No Stair Training Stair Training: Handrails/: 2 handrails #of Steps: 4 1 Step (curb) (QC): 5 4 Steps (QC): 5 12 Steps (QC): 9 Stairs: Pattern: Step to Balance Picking up an Object (QC): 5 ADL-Treatment Eating (QC): 6 (Completes own set up and uses regular utensils to eat.) Oral Hygiene (QC): 6 Shower/Bathe Self (QC): 5 Upper Body Dressing (QC): 5 Lower Body Dressing (QC): 5 On/Off Footwear (QC): 5 Toileting Hygiene (QC): 6 Toilet Transfer (QC): 6 Assessment/Plan Assessment and Plan Assess & Plan/Chief Complaint Assessment: Severe debility Ischemic bowel disease Confusion Hypertension Fall risk Coumadin treatment with Lovenox bridge currently Plan: Lovenox bridge Coumadin Inpatient rehabilitation protocol Monitor confusion Fall risk Monitor INR by checking Wednesday, may need Lovenox injections for bridge at DC (1) Myopathy (2) Ischemic bowel disease Status: Acute (3) Dementia Status: Acute (4) Warfarin prescribed at discharge ROBERT WEBSTER DO Jul 19, 2019 09:45
[2019-07-19] MEDS: lisINopril 40 MG (PRINIVIL) TABLET PO SCH (09:51)
[2019-07-19] MEDS: OMEGA 3 (FISH OIL) 1000 MG CAP PO SCH (09:51)
[2019-07-19] MEDS: SENNA W/DOCUSATE (SENOKOT S) TABLET PO SCH ×2 (09:51→20:03)
[2019-07-19] MEDS: MULTIVIT W/MINERALS TAB (THERAGRAN M) PO SCH (09:51)
[2019-07-19] MEDS: PANTOPRAZOLE 40 MG (PROTONIX) TAB PO SCH (09:51)
[2019-07-19] MEDS: DOCUSATE SODIUM 100 MG (COLACE) CAP PO SCH ×2 (09:51→20:04)
[2019-07-19] MEDS: SPIRONOLACTONE 25 MG (ALDACTONE) TAB PO SCH (09:51)
[2019-07-19] MEDS: fluCOnazole (DIFLUCAN) 100 MG TAB PO SCH (09:51)
[2019-07-19] MEDS: FUROSEMIDE 20 MG (LASIX) TAB PO SCH (09:52)
[2019-07-19] MEDS: MICONAZOLE NITRATE 2% CRM 30 GM TP SCH ×2 (09:56→20:05)
[2019-07-19] MEDS: ENOXAPARIN 60 MG/0.6 ML (LOVENOX) SYR SC SCH ×2 (09:56→20:04)
[2019-07-19] MEDS: polyethylene glycoL POWDER 17 GM (MIRALAX) PACK PO SCH (09:56)
--- NOTE | 2019-07-19 11:53 | Physical Therapy Daily Note ---
PT Daily Note-Current Subjective Pt sitting in recliner upon arrival. Pt agrees to PT. but asks to use restroom to start Rx. Pain Location: No Pain Reported Mental Status Patient Orientation: Person, Confused, Place Transfers SCALE: Activities may be completed with or without assistive devices. 9-Ljdtakctkj-lksedem completes the activity by him/herself with no assistance from a helper. 5-Set-up or Clean-up Assistance-helper sets up or cleans up; patient completes activity. [place] assists only prior to or following the activity. 4-Supervision or Touching Assistance-helper provides verbal cues and/or touchi ng/steadying and/or contact guard assistance as patient completes activity. Assistance may be provided throughout the activity or intermittently. 3-Partial/Moderate Assistance-helper does LESS THAN HALF the effort. [place] lifts, holds or supports trunk or limbs, but provides less than half the effort. 2-Substantial/Maximal Assistance-helper does MORE THAN HALF the effort. [place] lifts or holds trunk or limbs and provides more than half the effort. 4-Vkgnctylo-qhldkk does ALL the effort. Patient does none of the effort to complete the activity. Or, the assistance of 2 or more helpers is required for the patient to complete the activity. If activity was not attempted, code reason: 7-Patient Refused. 9-Not Applicable-not attempted and the patient did not perform the activity before the current illness, exacerbation or injury. 10-Not Attempted due to Environmental Limitations-(lack of equipment, weather restraints, etc.). 88-Not Attempted due to Medical Conditions or Safety Concerns. Sit to Stand (QC): 5 Toilet Transfer (QC): 5 Weight Bearing Right Lower Extremity: Right Full Weight Bearing Left Lower Extremity: Left Full Weight Bearing Gait Training Does the Patient Walk?: Yes Distance: 150' Walk 10 feet (QC): 5 Walk 50 ft with 2 Turns(QC): 5 Walk 150 ft (QC): 5 Gait Persons Needed: 1 Gait Assistive Device: FWW Pt walks with kyphotic posture and needs VC to try to walk closer to FWW. This will not fix kyphotic posture but safer. Wheelchair Training Does the Pt Use a Wheelchair?: No Exercises Seated Therapy Exercises: Ankle pumps, Long arc quads, Hip flexion, Kicking activity Seated Reps: 15 NuStep Minutes: 10 NuStep Workload: 4 Treatments Pt transfers from recliner to standing then uses restroom. Pt is able to c omplete pericare but takes extended time to complete toileting. Pt ambulates in hallway before using NuStep for 10m at WL 4. Pt takes short RB then completes Seated EX. Pt returns to room to rest but uses restroom again first. Pt returns to recliner with all needs met, call light in hand. Assessment Current Status: Fair Progress Pt takes extended time to complete all tasks. 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 Skilled Nursing Goals PT Skilled Nursing Goals Time Frame: Jul 29, 2019 Roll Left & Right (QC): 6 Sit to Lying (QC): 6 Lying-Sitting on Side/Bed(QC): 6 Sit to Stand (QC): 5 Chair/Xjm-sw-Hcwkk Xfer(QC): 5 Toilet Transfer (QC): 5 Car Transfer (QC): 6 Does the Patient Walk: Yes Walk 10 feet (QC): 5 Walk 50ft with 2 Turns (QC): 5 Walk 150 ft (QC): 5 Walking 10ft on Uneven Surface: 5 1 Step (curb) (QC): 4 4 Steps (QC): 4 12 Steps (QC): 9 Picking up an Object (QC): 5 PT Plan Problem List Problem List: Activity Tolerance, Functional Strength, Safety, Gait Treatment/Plan Treatment Plan: Continue Plan of Care Treatment Plan: Bed Mobility, Concurrent Therapy, Education, Functional Activity [place], Functional Strength, Group Therapy, Gait, Safety, Therapeutic Exercise, Transfers Treatment Duration: Jul 29, 2019 Frequency: At least 5 of 7 days/Wk (IRF) Estimated Hrs Per Day: 1.5 hours per day Patient and/or Family Agrees t: Yes Safety Risks/Education Patient Education: Gait Training, Transfer Techniques, Correct Positioning, Safety Issues Teaching Recipient: Patient Teaching Methods: Discussion Response to Teaching: Verbalize Understanding Time/GCodes Time In: 1000 Time Out: 1100 Total Billed Treatment Time: 60 Total Billed Treatment 1, GT (10m), FA x2 (30m) & EX (20m) MAYUR CABALLERO ASSISTANT DISTRIBUTION MANAGER Jul 19, 2019 11:53
--- NOTE | 2019-07-19 14:24 | Physical Therapy Daily Note ---
PT Daily Note-Current Subjective Pt is sitting in recliner upon arrival. INSTRUCTION ASSISTANT PRINCIPAL answers call light and pt asks to use restroom. Mental Status Patient Orientation: Person, Confused, Place Transfers SCALE: Activities may be completed with or without assistive devices. 0-Xsnvtvpqxi-vklvnrh completes the activity by him/herself with no assistance from a helper. 5-Set-up or Clean-up Assistance-helper sets up or cleans up; patient completes activity. [place] assists only prior to or following the activity. 4-Supervision or Touching Assistance-helper provides verbal cues and/or touching/steadying and/or contact guard assistance as patient completes activity. Assistance may be provided throughout the activity or intermittently. 3-Partial/Moderate Assistance-helper does LESS THAN HALF the effort. [place] lifts, holds or supports trunk or limbs, but provides less than half the effort. 2-Substantial/Maximal Assistance-helper does MORE THAN HALF the effort. [place] lifts or holds trunk or limbs and provides more than half the effort. 5-Bsigesxjx-qrkmde does ALL the effort. Patient does none of the effort to complete the activity. Or, the assistance of 2 or more helpers is required for the patient to complete the activity. If activity was not attempted, code reason: 7-Patient Refused. 9-Not Applicable-not attempted and the patient did not perform the activity before the current illness, exacerbation or injury. 10-Not Attempted due to Environmental Limitations-(lack of equipment, weather restraints, etc.). 88-Not Attempted due to Medical Conditions or Safety Concerns. Sit to Stand (QC): 5 Weight Bearing Right Lower Extremity: Right Full Weight Bearing Left Lower Extremity: Left Full Weight Bearing Gait Training Does the Patient Walk?: Yes Distance: 15' Walk 10 feet (QC): 5 Gait Assistive Device: FWW Treatments Pt transfers from recliner to standing. Pt uses restroom then returns to recliner. Pt has all needs met, call light in hand. Assessment Current Status: Fair Progress Pt fatigues easily. PT Dynamic Etching Processor Goals Assisted Goals PT Assisted Goals Time Frame: Jul 29, 2019 Roll Left & Right (QC): 6 Sit to Lying (QC): 6 Lying-Sitting on Side/Bed(QC): 6 Sit to Stand (QC): 5 Chair/Uwm-df-Cyfpa Xfer(QC): 5 Toilet Transfer (QC): 5 Car Transfer (QC): 6 Does the Patient Walk: Yes Walk 10 feet (QC): 5 Walk 50ft with 2 Turns (QC): 5 Walk 150 ft (QC): 5 Walking 10ft on Uneven Surface: 5 1 Step (curb) (QC): 4 4 Steps (QC): 4 12 Steps (QC): 9 Picking up an Object (QC): 5 PT Plan Problem List Problem List: Activity Tolerance, Functional Strength, Safety Treatment/Plan Treatment Plan: Continue Plan of Care Treatment Plan: Bed Mobility, Concurrent Therapy, Education, Functional Activity [place], Functional Strength, Group Therapy, Gait, Safety, Therapeutic Exercise, Transfers Treatment Duration: Jul 29, 2019 Frequency: At least 5 of 7 days/Wk (IRF) Estimated Hrs Per Day: 1.5 hours per day Patient and/or Family Agrees t: Yes Safety Risks/Education Patient Education: Transfer Techniques, Correct Positioning, Safety Issues Teaching Recipient: Patient Teaching Methods: Discussion Response to Teaching: Verbalize Understanding Time/GCodes Time In: 1300 Time Out: 1315 Total Billed Treatment Time: 15 Total Billed Treatment 1, FA (15m) MAYUR CABALLERO INSTRUCTION ASSISTANT PRINCIPAL Jul 19, 2019 14:24
--- NOTE | 2019-07-19 14:28 | Speech Therapy Daily Note ---
Speech Daily Progress Note Subjective Date Seen by Provider: Jul 19, 2019 Time Seen by Provider: 09:15 Patient was alert and cooperative for all therapy tasks. Patient reported that she is not doing too well today and that her throat was dry and painful. ST checked her throat and did not note any white patches or overt signs of irritation. Patient sat upright in her chair for the duration of treatment. Objective Patient completed problem-solving tasks pertaining to category members with 70% with moderate cues. Assessment Assessment Current Status: Good Progress Treatment Plan Continue Plan of Care Speech Short Term Goals Short Term Goals Short Term Goals 1. Patient will complete memory tasks with 90% accuracy with minimal cues. 2. Patient will complete problem-solving tasks with 90% accuracy with minimal cues. 3. Patient will complete safety awareness tasks with 90% accuracy with minimal cues. Speech Care Home Goals Radar Operator Goals Patient will improve cognitive-communication necessary for safety and daily living tasks with minimal assist. Speech-Plan Patient/Family Goals Patient/Family Goals: Patient reported that she wishes to return home to previous level of independence. Treatment Plan Speech Therapy Treatment Plan: Continue Plan of Care Treatment Duration: Jul 21, 2019 Frequency: 5 times per week Estimated Hrs Per Day: .5 hour per day Rehab Potential: Fair Barriers to Learning: Moderate cognitive status Pt/Family Agrees to Plan: Yes Safety Risks/Education Teaching Recipient: Patient Teaching Methods: Demonstration Response to Teaching: Verbalize Understanding, Return Demonstration Education Topics Provided: Continued use of memory strategies for improved recall of information. Time Speech Therapy Time In: 09:15 Speech Therapy Time Out: 09:45 Total Billed Time: 30 Billed Treatment Time 1, LILY Luna Jul 19, 2019 14:28
--- NOTE | 2019-07-19 16:28 | NUR ---
CM/SS WEEKLY TEAM CONFERENCE and DISCHARGE PLANNING Discussed summary with daughter Elida Coon at patient request due to her forgetfulness. Elida is in agreement with patient discharge home this 07/21/19. [facility]: Patient was established with [facility] Gustavo Mccoy, services will be resumed for RN, PT, OT. Patient has recommended DME, no new items at this time. Finalize discharge with patient and family for Wednesday. 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
[2019-07-19 17:31] VITALS: BP 118/63
[2019-07-19] MEDS: warFARin 7.5 MG (COUMADIN) TAB PO SCH (17:35)
[2019-07-19] MEDS: amLODIPine 10 MG (NORVASC) TAB PO SCH (17:35)
[2019-07-19 17:53] VITALS: BP 109/63
--- NOTE | 2019-07-19 18:47 | NUR ---
MOM given per pt request
--- NOTE | 2019-07-19 19:28 | D/C HH Face to Face Order ---
D/C Face to Face Orders Reconcile Patient Problems Problems Reviewed?: Yes Instructions for Patient [facility] Patient Instructions/FollowUp: [facility] [place] 1 week Physician to follow Patient: [facility] Discharge Diet for Home: No Restrictions Patient Problems: Ischemic bowel disease Coumadin treatment Dementia Goals for Patient: [place] Patient Data-Allergies,Ht & Wt Patient Allergies: Coded Allergies: Penicillins (Unverified Allergy, Unknown, 07/14/19) Sulfa (Sulfonamide Antibiotics) (Unverified Allergy, Unknown, 07/14/19) celecoxib (Verified Allergy, Unknown, 07/09/19) tetracycline (Unverified Allergy, Unknown, 07/14/19) Home Health Need/Face to Face Date of Face to Face: Jul 19, 2019 Clinical Findings: Generalized weakness and fatigue, Instability, Muscle weakness, Unsteady gait I have seen Pt tinv-wq-waoy: Yes Discharged To: Home Diagnosis/Conditions: Ischemic bowel disease Coumadin treatment Dementia Patient is Homebound due to: CognItive deficits, [place] fall risk due to instabilty, Muscle weakness Homebound Status Due to the above stated illness, injury or surgical procedure (medical condition or diagnosis) and associated clinical findings, the patient is homebound because of his/her inability to leave home except with aid of a supportive device and/or person AND leaving the home requires a considerable and taxing effort or is medically contraindicated. Pt req the following assistanc: [place] Home Health Nursing Orders Home Health Services Order: Nursing Services, [place] Machine Operator-Evaluate & Treat, Physical Therapy-Evaluate & Treat Certify Stmt I certify that this patient is under my care and that I, a nurse practitioner or a physician; a video library assistant working with me, had a face to face encounter that - meets the physician face to face encounter requirements with this patient as dated. ROBERT WEBSTER DO Jul 19, 2019 19:27
[2019-07-19] MEDS: ALPRAZolam 0.25 MG (XANAX) TAB PO SCH (20:04)
[2019-07-20 05:01] VITALS: BP 133/76
[2019-07-20] MEDS: ASCORBIC ACID (VIT C) 500 MG TABLET PO SCH ×2 (06:02→17:11)
[2019-07-20] MEDS: lisINopril 40 MG (PRINIVIL) TABLET PO SCH (08:16)
[2019-07-20] MEDS: OMEGA 3 (FISH OIL) 1000 MG CAP PO SCH (08:16)
[2019-07-20] MEDS: MULTIVIT W/MINERALS TAB (THERAGRAN M) PO SCH (08:17)
[2019-07-20] MEDS: FUROSEMIDE 20 MG (LASIX) TAB PO SCH (08:17)
[2019-07-20] MEDS: PANTOPRAZOLE 40 MG (PROTONIX) TAB PO SCH (08:18)
[2019-07-20] MEDS: SPIRONOLACTONE 25 MG (ALDACTONE) TAB PO SCH (08:18)
[2019-07-20] MEDS: fluCOnazole (DIFLUCAN) 100 MG TAB PO SCH (08:18)
[2019-07-20 08:21] VITALS: BP 127/66
[2019-07-20] MEDS: MICONAZOLE NITRATE 2% CRM 30 GM TP SCH ×2 (08:21→21:26)
--- NOTE | 2019-07-20 08:39 | PM&R Progress Note ---
Subjective HPI/CC On Admission Date Seen by Provider: Jul 20, 2019 Time Seen by Provider: 08:45 Subjective/Events-last exam Pt doing very well DC planned for tomorrow Will check INR tomorrow May need Lovenox bridge depending on INR tomorrow Overall doing very well Bowels are moving well Conferred with machine carton marker therapy notes Checked meds and labs Review of Systems General: Fatigue Neurological: Confusion Objective Exam Vital Signs Vital Signs Date Time Temp Pulse Resp B/P (MAP) Pulse Ox O2 Delivery O2 Flow Rate FiO2 07/20/19 17:12 68 115/53 (73) 07/20/19 17:10 36.9 20 97 Room Air Capillary Refill : Less Than 3 Seconds General Appearance: No Apparent Distress, WD/WN, Chronically ill, Thin, Other (frail) HEENT: PERRL/EOMI, Normal ENT Inspection, Pharynx Normal Neck: Full Range of Motion, Normal Inspection, Non Tender, Supple, Carotid Bruit Respiratory: Chest Non Tender, Lungs Clear, Normal Breath Sounds, No Accessory Muscle Use, No Respiratory Distress Cardiovascular: Regular Rate, Rhythm, No Edema, No Gallop, No JVD, No Murmur, Normal Peripheral Pulses Gastrointestinal: Normal Bowel Sounds, No Organomegaly, No Pulsatile Mass, Non Tender, Soft Back: Normal Inspection, No CVA Tenderness, No Vertebral Tenderness Extremity: Normal Capillary Refill, Normal Inspection, Normal Range of Motion, Non Tender, No Calf Tenderness, No Pedal Edema Neurologic/Psychiatric: Alert, Oriented x3, No Motor/Sensory Deficits, Normal Mood/Affect, quality audit representative II-XII Norm as Tested, Disoriented (subtle), Motor Weakness (generalized weakness all extremities) Skin: Normal Color, Warm/Dry Lymphatic: No Adenopathy Results/Procedures Lab Patient resulted labs reviewed. FIM Transfers Therapy Code Descriptions/Definitions Functional [place] Measure: 0=Not Assessed/NA 4=Minimal Assistance 1=Total Assistance 5=Supervision or Setup 2=Maximal Assistance 6=Modified [place] 3=Moderate Assistance 7=Complete IndependenceSCALE: Activities may be completed with or without assistive devices. 2-Gxhlhrgcem-ptwiawf completes the activity by him/herself with no assistance from a helper. 5-Set-up or Clean-up Assistance-helper sets up or cleans up; patient completes activity. [place] assists only prior to or following the activity. 4-Supervision or Touching Assistance-helper provides verbal cues and/or touching/steadying and/or contact guard assistance as patient completes activity. Assistance may be provided throughout the activity or intermittently. 3-Partial/Moderate Assistance-helper does LESS THAN HALF the effort. [place] lifts, holds or supports trunk or limbs, but provides less than half the effort. 2-Substantial/Maximal Assistance-helper does MORE THAN HALF the effort. [place] lifts or holds trunk or limbs and provides more than half the effort. 1-Pdgfhwict-zkagmf does ALL the effort. Patient does none of the effort to complete the activity. Or, the assistance of 2 or more helpers is required for the patient to complete the activity. If activity was not attempted, code reason: 7-Patient Refused. 9-Not Applicable-not attempted and the patient did not perform the activity before the current illness, exacerbation or injury. 10-Not Attempted due to Environmental Limitations-(lack of equipment, weather restraints, etc.). 88-Not Attempted due to Medical Conditions or Safety Concerns. Roll Left to Right (QC): 6 Sit to Lying (QC): 6 Sit to Stand (QC): 5 Chair/Bmh-xv-Jlfrw Xfer(QC): 5 Car Transfer (QC): 5 Gait Training Does the Patient Walk?: Yes Distance: 15' Walk 10 feet (QC): 5 Walk 50 ft with 2 Turns(QC): 5 Walk 150 ft (QC): 5 Walking 10ft/uneven surface-QC: 4 Gait Persons Needed: 1 Gait Assistive Device: FWW Wheelchair Training Does the Pt Use a Wheelchair?: No Stair Training Stair Training: Handrails/: 2 handrails #of Steps: 4 1 Step (curb) (QC): 5 4 Steps (QC): 5 12 Steps (QC): 9 Stairs: Pattern: Step to Balance Picking up an Object (QC): 5 ADL-Treatment Eating (QC): 6 (Completes own set up and uses regular utensils to eat.) Oral Hygiene (QC): 6 Shower/Bathe Self (QC): 5 Upper Body Dressing (QC): 5 Lower Body Dressing (QC): 5 On/Off Footwear (QC): 5 Toileting Hygiene (QC): 6 Toilet Transfer (QC): 6 Assessment/Plan Assessment and Plan Assess & Plan/Chief Complaint Assessment: Severe debility Ischemic bowel disease Confusion Hypertension Fall risk Coumadin treatment with Lovenox bridge currently Plan: Lovenox bridge Coumadin Inpatient rehabilitation protocol Monitor confusion Fall risk Monitor INR by checking Wednesday, may need Lovenox injections for bridge at DC (1) Myopathy (2) Ischemic bowel disease Status: Acute (3) Dementia Status: Acute (4) Warfarin prescribed at discharge ROBERT WEBSTER DO Jul 20, 2019 08:39
--- NOTE | 2019-07-20 08:53 | Occupational Ther Daily Note ---
OT Current Status-Daily Note Subjective Pt alert, sitting in recliner. Pt agrees to therapy. Pt is unsure of self and has STM difficulties, needs verbal cues for reassurance that she can do tasks for herself. Mental Status/Objective Patient Orientation: Person, Place, Time, Situation ADL-Treatment Pt agrees to shower. Pt ambulates to bathroom using FWW. Transfers to toilet and completes toileting hygiene/clothing manipulation, mod I. Pt demonstrates ability to complete own ADLs though needs set up and verbal cues for reassurance. Due to new environment pt has difficulty with sequencing steps for using items in shower so set up is needed then pt is able to complete rest of tasks. Pt does all dressing after set up. Sits at sink to complete grooming by self. Pt is able to set own meals up and use regular utensils to eat. After therapy, pt sitting in recliner with call light/phone in reach. Therapy Code Descriptions/Definitions Functional [place] Measure: 0=Not Assessed/NA 4=Minimal Assistance 1=Total Assistance 5=Supervision or Setup 2=Maximal Assistance 6=Modified [place] 3=Moderate Assistance 7=Complete IndependenceSCALE: Activities may be completed with or without assistive devices. 1-Mjudcmnyvm-uacukro completes the activity by him/herself with no assistance from a helper. 5-Set-up or Clean-up Assistance-helper sets up or cleans up; patient completes activity. [place] assists only prior to or following the activity. 4-Supervision or Touching Assistance-helper provides verbal cues and/or touching/steadying and/or contact guard assistance as patient completes activity. Assistance may be provided throughout the activity or intermittently. 3-Partial/Moderate Assistance-helper does LESS THAN HALF the effort. [place] lifts, holds or supports trunk or limbs, but provides less than half the effort. 2-Substantial/Maximal Assistance-helper does MORE THAN HALF the effort. [place] lifts or holds trunk or limbs and provides more than half the effort. 5-Ajuyrsetj-bvimcc does ALL the effort. Patient does none of the effort to complete the activity. Or, the assistance of 2 or more helpers is required for the patient to complete the activity. If activity was not attempted, code reason: 7-Patient Refused. 9-Not Applicable-not attempted and the patient did not perform the activity before the current illness, exacerbation or injury. 10-Not Attempted due to Environmental Limitations-(lack of equipment, weather restraints, etc.). 88-Not Attempted due to Medical Conditions or Safety Concerns. Eating (QC): 6 Oral Hygiene (QC): 6 Bathing Location: L Arm, R Arm, L Upper Leg, R Upper Leg, L Lower Leg (including foot), R Lower Leg (including foot), Chest, Abdomen, Buttocks, Perineal Area Shower/Bathe Self (QC): 5 Upper Body Dressing (QC): 5 Lower Body Dressing (QC): 5 On/Off Footwear: 5 Toileting Hygiene (QC): 6 Toilet Transfer (QC): 6 OT Short Term Goals Short Term Goals Toileting hygiene: 5 Upper body dressin OT Library Science Instructor Goals Custodial Goals Eating (QC): 6 (met) Oral Hygiene (QC): 6 (met) Toileting Hygiene (QC): 6 (met) Shower/Bathe Self (QC): 4 (met) Upper Body Dressing (QC): 6 (not met) Lower Body Dressing (QC): 6 (not met) On/Off Footwear (QC): 6 (not met) Additional Goals: 1-Demonstrate ADL Tasks, 2-Verbalize Understanding, 3-Improv eStrength/Mynor 1=Demonstrate adherence to instructed precautions during ADL tasks. 2=Patient will verbalize/demonstrate understanding of assistive devices/modifications for ADL. 3=Patient will improve strength/tolerance for activity to enable patient to p erform ADL's. OT Education/Plan Problem List/Assessment Assessment: Impaired Cognition Discharge Recommendations Plan/Recommendations: Continue POC Therapy Discharge Recommendati: Home & Family (pt lives with daughter) Equpiment Recommendations-D/C: Walker Bag or Basket Treatment Plan/Plan of Care Patient would benefit from OT for education, treatment and training to promote independence in ADL's, mobility, safety and/or upper extremity function for ADL's. Plan of Care: ADL Retraining, Caregiver Training, Cognitive Retraining, Functional Mobility, Group Exercise/Act as Ind, UE Funct Exercise/Act Treatment Duration: Jul 28, 2019 Frequency: At least 5 of 7 days/Wk (IRF) Estimated Hrs Per Day: 1.5 hours per day Agreement: Yes Rehab Potential: Fair Time/GCodes Start Time: 07:15 Stop Time: 08:30 Total Time Billed (hr/min): 75 Billed Treatment Time 1 visit-ADL 5 (75 min) ANUEL LE Jul 20, 2019 08:53
[2019-07-20] MEDS: DOCUSATE SODIUM 100 MG (COLACE) CAP PO SCH ×2 (09:09→21:25)
[2019-07-20] MEDS: SENNA W/DOCUSATE (SENOKOT S) TABLET PO SCH ×2 (09:10→21:25)
[2019-07-20] MEDS: polyethylene glycoL POWDER 17 GM (MIRALAX) PACK PO SCH (09:10)
[2019-07-20] MEDS: ENOXAPARIN 60 MG/0.6 ML (LOVENOX) SYR SC SCH ×2 (09:10→21:25)
--- NOTE | 2019-07-20 11:03 | Speech Therapy Daily Note ---
Speech Daily Progress Note Subjective Date Seen by Provider: Jul 20, 2019 Time Seen by Provider: 09:00 Patient was pleasant, alert, and cooperative for all therapy tasks. Patient reported that her mind is a little clearer today and is eager to return home tomorrow. Patient sat upright in her chair for the duration of treatment. Objective Patient completed memory tasks pertaining to daily schedule and personal information with 80% accuracy and moderate cues. Assessment Assessment Current Status: Good Progress Treatment Plan Discontinue ST Speech Short Term Goals Short Term Goals Short Term Goals 1. Patient will complete memory tasks with 90% accuracy with minimal cues. 2. Patient will complete problem-solving tasks with 90% accuracy with minimal cues. 3. Patient will complete safety awareness tasks with 90% accuracy with minimal cues. Speech Inspector And Tester Goals Senior Living Goals Patient will improve cognitive-communication necessary for safety and daily living tasks with minimal assist. Speech-Plan Patient/Family Goals Patient/Family Goals: Patient reports that she wishes to return home to previous level of independence. Treatment Plan Speech Therapy Treatment Plan: Discontinue ST Treatment Duration: Jul 21, 2019 Frequency: 5 times per week Estimated Hrs Per Day: .5 hour per day Rehab Potential: Fair Barriers to Learning: Moderate cognitive deficits Pt/Family Agrees to Plan: Yes Safety Risks/Education Teaching Recipient: Patient Teaching Methods: Demonstration Response to Teaching: Verbalize Understanding, Return Demonstration Education Topics Provided: Utilization of memory strategies such as calendar and daily schedule to recall important information. Time Speech Therapy Time In: 09:00 Speech Therapy Time Out: 09:30 Total Billed Time: 30 Billed Treatment Time 1, SLTS No QUALITY CODES EXPRESSION OF IDEAS/WANTS: 4 UNDERSTANDING VERBAL CONTENT: 4 BRIEF INTERVIEW OF MENTAL STATUS: YES REPETITION OF 3 WORDS: YES TEMPORAL ORIENTATION OF YEAR: CORRECT, MONTH: CORRECT, DAY: INCORRECT RECALL OF SOCK:YES, COLOR: NO, BED: NO MEMORY RECALL ABILITY OF CURRENT SEASON AND THAT SHE IS IN THE HOSPITAL LAT[facility] MONTELONGO Jul 20, 2019 11:03
--- NOTE | 2019-07-20 11:08 | Physical Therapy Daily Note ---
PT Daily Note-Current Subjective Pt sitting in recliner after just returning from restroom upon [employer] arrival. Pt agrees to PT. Pain Location: No Pain Reported Mental Status Patient Orientation: Person, Confused, Place Transfers SCALE: Activities may be completed with or without assistive devices. 5-Msefyvmips-cxddxex completes the activity by him/herself with no assistance from a helper. 5-Set-up or Clean-up Assistance-helper sets up or cleans up; patient completes activity. [place] assists only prior to or following the activity. 4-Supervision or Touching Assistance-helper provides verbal cues and/or touch ing/steadying and/or contact guard assistance as patient completes activity. Assistance may be provided throughout the activity or intermittently. 3-Partial/Moderate Assistance-helper does LESS THAN HALF the effort. [place] lifts, holds or supports trunk or limbs, but provides less than half the effort. 2-Substantial/Maximal Assistance-helper does MORE THAN HALF the effort. [place] lifts or holds trunk or limbs and provides more than half the effort. 1-Rcdgzihwg-cnrhly does ALL the effort. Patient does none of the effort to complete the activity. Or, the assistance of 2 or more helpers is required for the patient to complete the activity. If activity was not attempted, code reason: 7-Patient Refused. 9-Not Applicable-not attempted and the patient did not perform the activity before the current illness, exacerbation or injury. 10-Not Attempted due to Environmental Limitations-(lack of equipment, weather restraints, etc.). 88-Not Attempted due to Medical Conditions or Safety Concerns. Roll Left & Right (QC): 6 Sit to Lying (QC): 6 Lying to Sitting/Side of Bed(Q: 6 Sit to Stand (QC): 6 Chair/Jly-ut-Rkbhh Xfer(QC): 6 Toilet Transfer (QC): 6 Car Transfer (QC): 5 Weight Bearing Right Lower Extremity: Right Full Weight Bearing Left Lower Extremity: Left Full Weight Bearing Gait Training Does the Patient Walk?: Yes Distance: 150' Walk 10 feet (QC): 5 Walk 50 ft with 2 Turns(QC): 5 Walk 150 ft (QC): 5 Walking 10ft/uneven surface-QC: 5 Gait Persons Needed: 1 Gait Assistive Device: FWW Pt needs VC to walk w/in FWW, although pt has kyphotic posture. Wheelchair Training Does the Pt Use a Wheelchair?: No Stair Training Stair Training: Handrails/: 2 handrails #of Steps: 4 1 Step (curb) (QC): 5 4 Steps (QC): 5 12 Steps (QC): 88 Stairs: Pattern: Step to Pt fatigues easily and rests after 1 set of 4 steps. Balance Picking up an Object (QC): 88 Special Test Comments Due to balance concerns, this is not attempted. Pt will have family as well as warehouse coordinator to assist. Exercises Seated Therapy Exercises: Ankle pumps, Long arc quads, Hip flexion, Kicking activity Seated Reps: 15 NuStep Minutes: 10 NuStep Workload: 3 Treatments Pt completes QC scoring items listed above as well as used NuStep for 10m at WL 3. Pt also completes Seated EX in chair. Pt then returns to room to use restroom and rest in recliner at end of Rx. Pt has all needs met, call light in hand. Assessment Current Status: Good Progress Pt tolerates Rx well but has to take a couple RB during Rx. PT Skilled Nursing Goals Skilled Nursing Goals PT Skilled Nursing Goals Time Frame: Jul 29, 2019 Roll Left & Right (QC): 6 Sit to Lying (QC): 6 Lying-Sitting on Side/Bed(QC): 6 Sit to Stand (QC): 5 Chair/Ssu-cy-Ovznh Xfer(QC): 5 Toilet Transfer (QC): 5 Car Transfer (QC): 6 Does the Patient Walk: Yes Walk 10 feet (QC): 5 Walk 50ft with 2 Turns (QC): 5 Walk 150 ft (QC): 5 Walking 10ft on Uneven Surface: 5 1 Step (curb) (QC): 4 4 Steps (QC): 4 12 Steps (QC): 9 Picking up an Object (QC): 5 PT Plan Problem List Problem List: Activity Tolerance Treatment/Plan Treatment Plan: Continue Plan of Care Treatment Plan: Bed Mobility, Concurrent Therapy, Education, Functional Activity Mynor, Functional Strength, Group Therapy, Gait, Safety, Therapeutic Exercise, Transfers Treatment Duration: Jul 29, 2019 Frequency: At least 5 of 7 days/Wk (IRF) Estimated Hrs Per Day: 1.5 hours per day Patient and/or Family Agrees t: Yes Safety Risks/Education Patient Education: Gait Training, Transfer Techniques, Steps, Correct Positioning, Safety Issues Teaching Recipient: Patient Teaching Methods: Discussion Response to Teaching: Verbalize Understanding Time/GCodes Time In: 1000 Time Out: 1100 Total Billed Treatment Time: 60 Total Billed Treatment 1, GT (15m), FA x2 (30m) & EX (15m) MAYUR CABALLERO [employer] Jul 20, 2019 11:08
--- NOTE | 2019-07-20 14:56 | Physical Therapy Daily Note ---
PT Daily Note-Current Subjective Pt sitting in recliner upon arrival. Pt declines needing to use restroom. Pt agrees to written HEP. Pain Location: No Pain Reported Mental Status Patient Orientation: Person, Confused, Place Transfers SCALE: Activities may be completed with or without assistive devices. 1-Ptmhkzvrgi-juxmuwl completes the activity by him/herself with no assistance from a helper. 5-Set-up or Clean-up Assistance-helper sets up or cleans up; patient completes activity. [place] assists only prior to or following the activity. 4-Supervision or Touching Assistance-helper provides verbal cues and/or touching/steadying and/or contact guard assistance as patient completes activity. Assistance may be provided throughout the activity or intermittently. 3-Partial/Moderate Assistance-helper does LESS THAN HALF the effort. [place] lifts, holds or supports trunk or limbs, but provides less than half the effort. 2-Substantial/Maximal Assistance-helper does MORE THAN HALF the effort. [place] lifts or holds trunk or limbs and provides more than half the effort. 7-Ehboypkzc-wcmhor does ALL the effort. Patient does none of the effort to complete the activity. Or, the assistance of 2 or more helpers is required for the patient to complete the activity. If activity was not attempted, code reason: 7-Patient Refused. 9-Not Applicable-not attempted and the patient did not perform the activity before the current illness, exacerbation or injury. 10-Not Attempted due to Environmental Limitations-(lack of equipment, weather restraints, etc.). 88-Not Attempted due to Medical Conditions or Safety Concerns. Weight Bearing Right Lower Extremity: Right Full Weight Bearing Left Lower Extremity: Left Full Weight Bearing Exercises Supine Ex: Ankle pumps, Quad Set, Glut sets, Heel Slides, Straight leg raise, Hip abd/add Supine Reps: 15 Seated Therapy Exercises: Ankle pumps, Long arc quads, Hip flexion, Kicking activity Seated Reps: 15 Treatments EQUAL EMPLOYMENT OPPORTUNITY OFFICER gives pt written HEP for Supine & Seated Ex. EQUAL EMPLOYMENT OPPORTUNITY OFFICER also gives verbal instruction as pt completes these Ex. Pt resting in recliner at end of Rx, all needs met & call light in hand. Assessment Current Status: Good Progress Pt has difficulty with retention of Ex so EQUAL EMPLOYMENT OPPORTUNITY OFFICER provides written HEP. PT Fdc Goals Gear [place] Goals PT Gear [place] Goals Time Frame: Jul 29, 2019 Roll Left & Right (QC): 6 Sit to Lying (QC): 6 Lying-Sitting on Side/Bed(QC): 6 Sit to Stand (QC): 5 Chair/Ejk-lw-Ltpsj Xfer(QC): 5 Toilet Transfer (QC): 5 Car Transfer (QC): 6 Does the Patient Walk: Yes Walk 10 feet (QC): 5 Walk 50ft with 2 Turns (QC): 5 Walk 150 ft (QC): 5 Walking 10ft on Uneven Surface: 5 1 Step (curb) (QC): 4 4 Steps (QC): 4 12 Steps (QC): 9 Picking up an Object (QC): 5 PT Plan Problem List Problem List: Activity Tolerance, Functional Strength Treatment/Plan Treatment Plan: Continue Plan of Care Treatment Plan: Bed Mobility, Concurrent Therapy, Education, Functional Activity [place], Functional Strength, Group Therapy, Gait, Safety, Therapeutic Exercise, Transfers Treatment Duration: Jul 29, 2019 Frequency: At least 5 of 7 days/Wk (IRF) Estimated Hrs Per Day: 1.5 hours per day Patient and/or Family Agrees t: Yes Safety Risks/Education Patient Education: Issued Written HEP, Correct Positioning, Safety Issues Teaching Recipient: Patient Teaching Methods: Discussion Response to Teaching: Verbalize Understanding Time/GCodes Time In: 1330 Time Out: 1345 Total Billed Treatment Time: 15 Total Billed Treatment 1, EX (15m) MAYUR CABALLERO PTA Jul 20, 2019 14:56
--- NOTE | 2019-07-20 15:07 | NUR ---
CM/SS DISCHARGE PLANNING HHC: Confirmed with [facility] that they have patient's established services on hold until her hospital discharge. Rn Patient Care asked them to get her tentatively on the schedule for this weekend in anticipation of her discharge tomorrow (Wednesday). IMM2: Patient and daughter/family in agreement with discharge tomorrow, no intention to appeal.
[2019-07-20 17:10] VITALS: BP 103/53
[2019-07-20] MEDS: warFARin 7.5 MG (COUMADIN) TAB PO SCH (17:11)
[2019-07-20] MEDS: amLODIPine 10 MG (NORVASC) TAB PO SCH (17:11)
[2019-07-20 17:12] VITALS: BP 115/53
[2019-07-20] MEDS: ALPRAZolam 0.25 MG (XANAX) TAB PO SCH (21:25)
[2019-07-21 06:10] VITALS: BP 133/89
[2019-07-21] MEDS: ASCORBIC ACID (VIT C) 500 MG TABLET PO SCH (06:23)
[2019-07-21 06:46] LABS: INR 1.7 (0.8-1.4); PROTHROMBIN TIME PATIENT 20.6 SEC (12.2-14.7)
--- NOTE | 2019-07-21 08:00 | NUR ---
STATES URINARY ITCHING AND BURNING IMPROVED. ONLY PAIN IS CHRONIC BACK PAIN. PLAN FOR DISCHARGE TODAY.
[2019-07-21] MEDS: fluCOnazole (DIFLUCAN) 100 MG TAB PO SCH (08:44)
[2019-07-21] MEDS: SPIRONOLACTONE 25 MG (ALDACTONE) TAB PO SCH (08:44)
[2019-07-21] MEDS: OMEGA 3 (FISH OIL) 1000 MG CAP PO SCH (08:44)
[2019-07-21] MEDS: FUROSEMIDE 20 MG (LASIX) TAB PO SCH (08:44)
[2019-07-21] MEDS: lisINopril 40 MG (PRINIVIL) TABLET PO SCH (08:44)
[2019-07-21] MEDS: MULTIVIT W/MINERALS TAB (THERAGRAN M) PO SCH (08:44)
[2019-07-21] MEDS: SENNA W/DOCUSATE (SENOKOT S) TABLET PO SCH (08:45)
[2019-07-21] MEDS: PANTOPRAZOLE 40 MG (PROTONIX) TAB PO SCH (08:45)
[2019-07-21] MEDS: DOCUSATE SODIUM 100 MG (COLACE) CAP PO SCH (08:45)
[2019-07-21] MEDS: polyethylene glycoL POWDER 17 GM (MIRALAX) PACK PO SCH (08:45)
[2019-07-21] MEDS ORDERED: ENOX60DI7 SC (09:05)
[2019-07-21] MEDS ORDERED: WARF6TAB PO (09:05)
--- NOTE | 2019-07-21 09:07 | Discharge Summary ---
Diagnosis/Chief Complaint Date of Admission Jul 13, 2019 at 15:50 Date of Discharge Discharge Date: Jul 21, 2019 Discharge Diagnosis Assessment: Severe debility Ischemic bowel disease Confusion Hypertension Fall risk Coumadin treatment with Lovenox bridge currently Plan: Lovenox bridge Coumadin Inpatient rehabilitation protocol Monitor confusion Fall risk Monitor INR by checking Wednesday, and will need Lovenox injections for bridge at NH (1) Myopathy (2) Ischemic bowel disease Status: Acute (3) Dementia Status: Acute (4) Warfarin prescribed at discharge Discharge Summary Discharge Physical Examination Allergies: Coded Allergies: Penicillins (Unverified Allergy, Unknown, 07/14/19) Sulfa (Sulfonamide Antibiotics) (Unverified Allergy, Unknown, 07/14/19) celecoxib (Verified Allergy, Unknown, 07/09/19) tetracycline (Unverified Allergy, Unknown, 07/14/19) Vitals & I&Os Vital Signs Date Time Temp Pulse Resp B/P (MAP) Pulse Ox O2 Delivery O2 Flow Rate FiO2 07/21/19 13:58 37.3 81 18 110/63 97 Room Air 07/21/19 10:18 21 General Appearance: Alert, Oriented X3, Cooperative Respiratory: Clear to Auscultation Cardiovascular: Regular Rate Neuro: Normal Gait, Normal Speech, Strength at 5/5 X4 Ext Psych/Mental Status: Mental Status NL Hospital Course Was the Problem List Reviewed?: Yes Hospital Course: Pt had an uneventful hospitalcourse. She was able to participate in all therapies and regain her strength to prior level of functioning and be able to walk with a walker and be able to return home with her daughter at NH. She had completed antibiotics and I initiatedDIflucan and Monistatcream from yeast vaginitis from the antibiotics. UA was checked and no evidence of any UTI. INR was 1.7 when able to restart Coumadin. Lovenox injections required for a few days until INR will be checked on Wednesday by home health. Labs (last 24 hrs) Laboratory Tests 07/14/19 07:25: White Blood Count 5.3, Red Blood Count 4.02L, Hemoglobin 12.0, Hematocrit 36, Mean Corpuscular Volume 90, Mean Corpuscular Hemoglobin 30, Mean Corpuscular Hemoglobin Concent 33, Red Cell Distribution Width 13.1, Platelet Count 128L, Mean Platelet Volume 9.8, Neutrophils (%) (Auto) 52, Lymphocytes (%) (Auto) 31, Monocytes (%) (Auto) 10, Eosinophils (%) (Auto) 7, Basophils (%) (Auto) 0, Neutrophils # (Auto) 2.8, Lymphocytes # (Auto) 1.7, Monocytes # (Auto) 0.5, Eosinophils # (Auto) 0.4H, Basophils # (Auto) 0.0, Prothrombin Time 14.7, INR Comment 1.1, Sodium Level 139, Potassium Level 4.0, Chloride Level 109H, Carbon Dioxide Level 25, Anion Gap 5, Blood Urea Nitrogen 19H, Creatinine 0.76, Estimat Glomerular Filtration Rate > 60, BUN/Creatinine Ratio 25, Glucose Level 97, Calcium Level 9.2, Corrected Calcium 9.9, Total Bilirubin 0.3, Aspartate Amino Transf (AST/SGOT) 48H, Alanine Aminotransferase (ALT/SGPT) 41, Alkaline Phosphatase 60, Total Protein 5.0L, Albumin 3.1L 07/17/19 05:30: White Blood Count 4.3, Red Blood Count 3.91L, Hemoglobin 11.6, Hematocrit 36, Mean Corpuscular Volume 91, Mean Corpuscular Hemoglobin 30, Mean Corpuscular Hemoglobin Concent 33, Red Cell Distribution Width 13.0, Platelet Count 164, Mean Platelet Volume 10.7H, Neutrophils (%) (Auto) 44, Lymphocytes (%) (Auto) 39, Monocytes (%) (Auto) 11, Eosinophils (%) (Auto) 5, Basophils (%) (Auto) 1, Neutrophils # (Auto) 1.9, Lymphocytes # (Auto) 1.7, Monocytes # (Auto) 0.5, Eosinophils # (Auto) 0.2, Basophils # (Auto) 0.0, Prothrombin Time 14.9H, INR Comment 1.1, Sodium Level 140, Potassium Level 4.1, Chloride Level 106, Carbon Dioxide Level 26, Anion Gap 8, Blood Urea Nitrogen 21H, Creatinine 0.81, Estimat Glomerular Filtration Rate > 60, BUN/Creatinine Ratio 26, Glucose Level 75, Calcium Level 9.8, Corrected Calcium 10.3H, Total Bilirubin 0.2, Aspartate Amino Transf (AST/SGOT) 33, Alanine Aminotransferase (ALT/SGPT) 38, Alkaline Phosphatase 74, Total Protein 5.4L, Albumin 3.4 07/18/19 20:50: Urine Color YELLOW, Urine Clarity CLEAR, Urine pH 6.5, Urine Specific [place] 1.010L, Urine Protein NEGATIVE, Urine Glucose (UA) NEGATIVE, Urine Ketones NEGATIVE, Urine Nitrite NEGATIVE, Urine Bilirubin NEGATIVE, Urine Urobilinogen 0.2, Urine Leukocyte Esterase NEGATIVE, Urine RBC (Auto) NEGATIVE, Urine RBC NONE, Urine WBC NONE, Urine Crystals NONE, Urine Bacteria NEGATIVE, Urine Casts NONE, Urine Mucus NEGATIVE, Urine Culture Indicated NO 07/19/19 05:11: Prothrombin Time 16.0H, INR Comment 1.2 07/21/19 05:35: Prothrombin Time 20.6H, INR Comment 1.7H Pending Labs Laboratory Tests 07/14/19 07:25: White Blood Count 5.3, Red Blood Count 4.02, Hemoglobin 12.0, Hematocrit 36, Mean Corpuscular Volume 90, Mean Corpuscular Hemoglobin 30, Mean Corpuscular Hemoglobin Concent 33, Red Cell Distribution Width 13.1, Platelet Count 128, Mean Platelet Volume 9.8, Neutrophils (%) (Auto) 52, Lymphocytes (%) (Auto) 31, Monocytes (%) (Auto) 10, Eosinophils (%) (Auto) 7, Basophils (%) (Auto) 0, Neutrophils # (Auto) 2.8, Lymphocytes # (Auto) 1.7, Monocytes # (Auto) 0.5, Eosinophils # (Auto) 0.4, Basophils # (Auto) 0.0, Prothrombin Time 14.7, INR Comment 1.1, Sodium Level 139, Potassium Level 4.0, Chloride Level 109, Carbon Dioxide Level 25, Anion Gap 5, Blood Urea Nitrogen 19, Creatinine 0.76, Estimat Glomerular Filtration Rate > 60, BUN/Creatinine Ratio 25, Glucose Level 97, Calcium Level 9.2, Corrected Calcium 9.9, Total Bilirubin 0.3, Aspartate Amino Transf (AST/SGOT) 48, Alanine Aminotransferase (ALT/SGPT) 41, Alkaline Phosphatase 60, Total Protein 5.0, Albumin 3.1 07/17/19 05:30: White Blood Count 4.3, Red Blood Count 3.91, Hemoglobin 11.6, Hematocrit 36, Mean Corpuscular Volume 91, Mean Corpuscular Hemoglobin 30, Mean Corpuscular Hemoglobin Concent 33, Red Cell Distribution Width 13.0, Platelet Count 164, Mean Platelet Volume 10.7, Neutrophils (%) (Auto) 44, Lymphocytes (%) (Auto) 39, Monocytes (%) (Auto) 11, Eosinophils (%) (Auto) 5, Basophils (%) (Auto) 1, Neutrophils # (Auto) 1.9, Lymphocytes # (Auto) 1.7, Monocytes # (Auto) 0.5, Eosinophils # (Auto) 0.2, Basophils # (Auto) 0.0, Prothrombin Time 14.9, INR Comment 1.1, Sodium Level 140, Potassium Level 4.1, Chloride Level 106, Carbon Dioxide Level 26, Anion Gap 8, Blood Urea Nitrogen 21, Creatinine 0.81, Estimat Glomerular Filtration Rate > 60, BUN/Creatinine Ratio 26, Glucose Level 75, Calcium Level 9.8, Corrected Calcium 10.3, Total Bilirubin 0.2, Aspartate Amino Transf (AST/SGOT) 33, Alanine Aminotransferase (ALT/SGPT) 38, Alkaline Phosphatase 74, Total Protein 5.4, Albumin 3.4 07/18/19 20:50: Urine Color YELLOW, Urine Clarity CLEAR, Urine pH 6.5, Urine Specific [place] 1.010, Urine Protein NEGATIVE, Urine Glucose (UA) NEGATIVE, Urine Ketones NEGATIVE, Urine Nitrite NEGATIVE, Urine Bilirubin NEGATIVE, Urine Urobilinogen 0.2, Urine Leukocyte Esterase NEGATIVE, Urine RBC (Auto) NEGATIVE, Urine RBC NONE, Urine WBC NONE, Urine Crystals NONE, Urine Bacteria NEGATIVE, Urine Casts NONE, Urine Mucus NEGATIVE, Urine Culture Indicated NO 07/19/19 05:11: Prothrombin Time 16.0, INR Comment 1.2 07/21/19 05:35: Prothrombin Time 20.6, INR Comment 1.7 Discharge Home Medications: Active Scripts Active Coumadin (Warfarin Sodium) 6 Mg Tablet 6 Mg PO DAILY Enoxaparin Sodium 60 Mg/0.6 Ml Syringe 60 Mg SC Q12H Reported Miralax (Polyethylene Glycol 3350) 17 Gm Powd.pack 17 Gm PO DAILY Tramadol HCl 50 Mg Tablet 50 Mg PO DAILY PRN MAY TAKE ONE IN ADDITION TO HER SCHEDULED DOSE Cranberry (Cranberry Extract) 500 Mg Tablet 500 Mg PO BID Co Q-10 100 mg Softgel (Ubidecarenone/Vit E Acetate) 1 Each Capsule 100 Mg PO BID Multivitamins (Multivitamin) 1 Each Tablet 1 Tab PO DAILY Vitamin C (Ascorbate Calcium) 500 Mg Tablet 500 Mg PO BID Fish Oil 1,000 mg Capsule ([place] 3 Polyunsat Fatty Acids) 1,000 Mg Cap 1,000 Mg PO DAILY Tramadol HCl 50 Mg Tablet 50 Mg PO TID Lisinopril 40 Mg Tablet 40 Mg PO DAILY Atorvastatin Calcium 40 Mg Tablet 40 Mg PO DAILY Furosemide 20 Mg Tablet 20 Mg PO DAILY Amlodipine Besylate 10 Mg Tablet 10 Mg PO 1800 Alprazolam 0.25 Mg Tablet 0.25 Mg PO HS Pantoprazole Sodium 40 Mg Tablet.dr 40 Mg PO DAILY Spironolactone 25 Mg Tablet 12.5 Mg PO DAILY TAKES 1/2 (25MG) TABLET Instructions to patient/family Please see electronic discharge instructions given to patient. Diagnosis/Problems Diagnosis/Problems (1) Myopathy (2) Ischemic bowel disease Status: Acute (3) Dementia Status: Acute (4) Warfarin prescribed at discharge Clinical Quality Measures DVT/VTE Risk/Contraindication: Risk Factor Score Per Nursin RFS Level Per Nursing on Admit: 4+=Very High ROBERT WEBSTER DO Jul 21, 2019 09:07
[2019-07-21] MEDS: MICONAZOLE NITRATE 2% CRM 30 GM TP SCH (09:28)
[2019-07-21] MEDS: ENOXAPARIN 60 MG/0.6 ML (LOVENOX) SYR SC SCH (09:29)
[2019-07-21 10:18] VITALS: BP 133/89
--- NOTE | 2019-07-21 11:11 | Therapy Team Discharge Summary ---
Therapy Discharge Summary Discharge Recommendations Date of Discharge 07/21/2019 Physical Therapy This patient was admitted to ARU post acute hospital stay for continued medical management and skilled therapy services. Her PLOF was generally set up assist with all mobiltiy. Upon initial evaluation, she was SBA to set up assist with bed mobiltiy and transfers and set up assist with gait. Treatment has consisted of functional strength and balance training to improve transfers and gait. At discharge, she is set up assist to mod indep with bed mobility and transfers and set up assist with gait. She did make functional progress in terms of activity tolerance and safety. Pt to discharge home with family support. DC PT. Occupational Therapy Impaired Cognition PT Drum Sander Setter Goals Drum Sander Setter Goals PT Drum Sander Setter Goals Time Frame: Jul 29, 2019 Roll Left to Right (QC): 6 (met) Sit to Lying (QC): 6 (met) Lying-Sitting on Side/Bed(QC): 6 (met) Sit to Stand (QC): 5 (met) Chair/Ogz-am-Naeja Xfer(QC): 5 (met) Car Transfer (QC): 6 (unmet, scored 5) Does the Patient Walk: Yes Walk 10 feet (QC): 5 (met) Walk 10ft-Uneven Surface(QC): 5 (met) Walk 50ft with 2 Turns (QC): 5 (met) Walk 150 ft (QC): 5 (met) 1 Step (curb) (QC): 4 4 Steps (QC): 4 12 Steps (QC): 9 Picking up an Object (QC): 5 Goals nearly met OT Shelter Goals Drum Sander Setter Goals Eating (QC): 6 (met) Oral Hygiene (QC): 6 (met) Shower/Bathe Self (QC): 4 (met) Upper Body Dressing (QC): 6 (not met) Lower Body Dressing (QC): 6 (not met) On/Off Footwear (QC): 6 (not met) Toileting Hygiene (QC): 6 (met) Toilet/Commode Transfer (QC): 5 Additional Goals: 1-Demonstrate ADL Tasks, 2-Verbalize Understanding, 3- ImproveStrength/Mynor 1=Demonstrate adherence to instructed precautions during ADL tasks. 2=Patient will verbalize/demonstrate understanding of assistive devices/modifications for ADL. 3=Patient will improve strength/tolerance for activity to enable patient to perform ADL's. Speech Shelter Goals Shelter Goals Patient will improve cognitive-communication necessary for safety and daily living tasks with minimal assist. ANUEL CLARKE PT Jul 21, 2019 11:11
--- NOTE | 2019-07-21 12:32 | NUR ---
CM/SS DISCHARGE Patient's son will pick patient up today around 1300. C: Finalized with Brittany Mccoy: RN to administer/educate about Lovenox injection, first visit will be this evening for 2100 dosing. Brittany understands to perform lab PT/INR in 3 days. Rx: Prior Authorization completed with patient's [employer] Rx plan for generic Lovenox twice daily x 5 days. Needlemaker with multi contacts with [facility] Gustavo Mccoy and daughter re pre auth process. Daughter plans to filler picker #6 doses until PT/INR results are known, then filler picker remainder as advised by PCP from lab results. [facility] pharmacist made aware. Patient OOP is $124.04 for all 10 vials. HHC and PCP have been updated re same so that they can advise patient/family to continue dosage until fully completed if appropriate. [employer] Reference #[id number]. [email or web address] regarding PA followup or phone [phone]. Needlemaker made patient's f/u appointment with PCP [facility] JORGE L Mccoy. Updated Daughter Elida Coon x 2 calls, and Unit RN updated intermittently as new information was known. Patient dressed and ready to leave.
[2019-07-21 13:58] VITALS: BP 110/63
--- NOTE | 2019-07-21 15:06 | Therapy Team Discharge Summary ---
Therapy Discharge Summary Discharge Recommendations Date of Discharge Jul 21, 2019 at 13:30 Occupational Therapy Impaired Cognition Speech-Language Pathology Patient was admitted to the ARU s/p sepsis. Patient demonstrated moderate cognitive deficits that were addressed during her ARU admission. Patient made good progress in the areas of memory, problem-solving, and safety awareness with minimal cues. Patient no longer requires skilled ST services at this time. PT Nursing Home Goals Nursing Home Goals PT Nursing Home Goals Time Frame: Jul 29, 2019 Roll Left to Right (QC): 6 (met) Sit to Lying (QC): 6 (met) Lying-Sitting on Side/Bed(QC): 6 (met) Sit to Stand (QC): 5 (met) Chair/Fmk-mm-Vecth Xfer(QC): 5 (met) Car Transfer (QC): 6 (unmet, scored 5) Does the Patient Walk: Yes Walk 10 feet (QC): 5 (met) Walk 10ft-Uneven Surface(QC): 5 (met) Walk 50ft with 2 Turns (QC): 5 (met) Walk 150 ft (QC): 5 (met) 1 Step (curb) (QC): 4 4 Steps (QC): 4 12 Steps (QC): 9 Picking up an Object (QC): 5 OT Canine Service Instructor Trainer Goals Nursing Home Goals Eating (QC): 6 (met) Oral Hygiene (QC): 6 (met) Shower/Bathe Self (QC): 4 (met) Upper Body Dressing (QC): 6 (not met) Lower Body Dressing (QC): 6 (not met) On/Off Footwear (QC): 6 (not met) Toileting Hygiene (QC): 6 (met) Toilet/Commode Transfer (QC): 5 Additional Goals: 1-Demonstrate ADL Tasks, 2-Verbalize Understanding, 3-ImproveStrength/Mynor 1=Demonstrate adherence to instructed precautions during ADL tasks. 2=Patient will verbalize/demonstrate understanding of assistive devices/modifications for ADL. 3=Patient will improve strength/tolerance for activity to enable patient to perform ADL's. Speech Nursing Home Goals Nursing Home Goals Patient will improve cognitive-communication necessary for safety and daily living tasks with minimal assist.MET LILY GUIDO Jul 21, 2019 15:06
--- NOTE | 2019-07-21 15:22 | Therapy Team Discharge Summary ---
Therapy Discharge Summary Discharge Recommendations Date of Discharge Jul 21, 2019 at 13:30 Occupational Therapy Pt admits with enteritis/ gastritis dx and decreased ADL status. Pt admitted w ith decreased safety, increased timing and decreased safety. Pt and OT works toward IND within ADL tasks. Pt DC's with: Eating (QC): 6 (met) Oral Hygiene (QC): 6 (met) Toileting Hygiene (QC): 6 (met) Shower/Bathe Self (QC): 4 (met) Upper Body Dressing (QC): 6 (not met) Lower Body Dressing (QC): 6 (not met) On/Off Footwear (QC): 6 (not met) Pt limited by endurance. D/c home with daughter with recommendations of walker basket. Impaired Cognition PT Forest Fire Prevention Specialist Goals Intermediate Goals PT Forest Fire Prevention Specialist Goals Time Frame: Jul 29, 2019 Roll Left to Right (QC): 6 (met) Sit to Lying (QC): 6 (met) Lying-Sitting on Side/Bed(QC): 6 (met) Sit to Stand (QC): 5 (met) Chair/Uzz-xu-Nyykh Xfer(QC): 5 (met) Car Transfer (QC): 6 (unmet, scored 5) Does the Patient Walk: Yes Walk 10 feet (QC): 5 (met) Walk 10ft-Uneven Surface(QC): 5 (met) Walk 50ft with 2 Turns (QC): 5 (met) Walk 150 ft (QC): 5 (met) 1 Step (curb) (QC): 4 4 Steps (QC): 4 12 Steps (QC): 9 Picking up an Object (QC): 5 OT Forest Fire Prevention Specialist Goals Forest Fire Prevention Specialist Goals Eating (QC): 6 (met) Oral Hygiene (QC): 6 (met) Shower/Bathe Self (QC): 4 (met) Upper Body Dressing (QC): 6 (not met) Lower Body Dressing (QC): 6 (not met) On/Off Footwear (QC): 6 (not met) Toileting Hygiene (QC): 6 (met) Toilet/Commode Transfer (QC): 5 Additional Goals: 1-Demonstrate ADL Tasks, 2-Verbalize Understanding, 3- ImproveStrength/Mynor 1=Demonstrate adherence to instructed precautions during ADL tasks. 2=Patient will verbalize/demonstrate understanding of assistive devices/modifications for ADL. 3=Patient will improve strength/tolerance for activity to enable patient to perform ADL's. Speech Forest Fire Prevention Specialist Goals Forest Fire Prevention Specialist Goals Patient will improve cognitive-communication necessary for safety and daily living tasks with minimal assist.MET ALBERTO CALIXTO OTR Jul 21, 2019 15:22
== END 2019-07-21 13:30 | disposition home health service (06) | DRG 92 ==
PROVIDERS: ADMIT Internal Medicine; ATTEND Internal Medicine
DX: G72.89 Other specified myopathies (principal); K55.9 Vascular disorder of intestine, unspecified; F03.90 Unspecified dementia, unspecified severity, without behavioral disturbance, psychotic disturbance, mood disturbance, and anxiety; I10 Essential (primary) hypertension; E78.00 Pure hypercholesterolemia, unspecified; F41.9 Anxiety disorder, unspecified; F32.9 Major depressive disorder, single episode, unspecified; Z79.01 Long term (current) use of anticoagulants; Z90.710 Acquired absence of both cervix and uterus; B37.3 Candidiasis of vulva and vagina
CPT/HCPCS: 36415; 80053; 81000; 85025; 85610; 94640; 94760

== ENCOUNTER → 2019-07-24 | Outpatient (CLI) | payer MEDICARE ==
[~2019-07-24] MED LIST changes: +WARF6TAB PO
[2019-07-24 14:04] LABS: INR 2.2 (0.8-1.4)
== END ==
LOC: LAB FS 13:19
PROVIDERS: ATTEND Family Medicine
DX: Z51.81 Encounter for therapeutic drug level monitoring (principal); Z79.01 Long term (current) use of anticoagulants
CPT/HCPCS: 36415; 85610

== ENCOUNTER → 2019-07-31 | Outpatient (CLI) | payer MEDICARE ==
[2019-07-31 16:39] LABS: INR 1.8 (0.8-1.4); PROTHROMBIN TIME PATIENT 21.5 SEC (12.2-14.7)
== END ==
LOC: LAB FS 15:43
PROVIDERS: ATTEND Family Medicine
DX: Z01.89 Encounter for other specified special examinations (principal); Z79.01 Long term (current) use of anticoagulants
CPT/HCPCS: 36415; 85610

== ENCOUNTER → 2019-08-07 | Outpatient (CLI) | payer MEDICARE ==
[2019-08-07 17:10] LABS: INR 2.3 (0.8-1.4); PROTHROMBIN TIME PATIENT 26.2 SEC (12.2-14.7)
== END ==
LOC: LAB FS 16:10
PROVIDERS: ATTEND Family Medicine
DX: Z79.01 Long term (current) use of anticoagulants (principal)
CPT/HCPCS: 36415; 85610

== ENCOUNTER → 2019-08-14 | Outpatient (CLI) | payer MEDICARE ==
[2019-08-14 14:43] LABS: INR 1.8 (0.8-1.4)
== END ==
LOC: LAB FS 14:21
PROVIDERS: ATTEND Family Medicine
DX: I48.0 Paroxysmal atrial fibrillation (principal); Z79.01 Long term (current) use of anticoagulants
CPT/HCPCS: 36415; 85610

== ENCOUNTER → 2021-08-11 | Outpatient (CLI) | payer MEDICARE ==
[~2021-08-11] MED LIST changes: +ALPR.25T PO; -ALPR0.254 PO; +AMLO-251 PO; -AMLO10TA7 PO; -CRAN500T2 PO; +CRAN500T3 PO; -LISI40TA PO; +LISI40TA9 PO; +MULT-567 PO; -MULT1TAB69 PO; -PANT40TA3 PO; +PANT40TA52 PO
--- NOTE | 2021-08-11 16:33 | Diagnostic Imaging Report ---
INDICATION: Chronic cough COMPARISON: 07/12/2019 FINDINGS: Frontal and lateral views of the chest demonstrate normal heart size and pulmonary vascularity. The lungs are clear. There are no signs of infiltrate, pleural effusions or pneumothoraces. The visualized osseous structures show no acute abnormalities. IMPRESSION: 1. No acute process. No signs of infiltrates, effusions or pneumothoraces. Dictated by: Dictated on workstation # [id number]
== END ==
LOC: RAD FS 16:09
PROVIDERS: ATTEND Nurse Practitioner Family
DX: R05.3 Chronic cough (principal)
CPT/HCPCS: 71046

== ENCOUNTER → 2021-09-12 | Outpatient (CLI) | payer MEDICARE ==
--- NOTE | 2021-09-12 12:02 | Diagnostic Imaging Report ---
INDICATION: Knee pain and swelling COMPARISON: None available. TECHNIQUE: 3 radiographs of the right knee dated 09/12/2021 FINDINGS: No definite acute fracture or dislocation. Severe medial and lateral joint space narrowing with associated advanced tricompartmental osteophytosis. Calcifications are identified overlying the joint spaces, favored related to chondrocalcinosis with these calcifications extending lateral to the knee joint line. Prominent osteophyte formation is identified, particularly along the anterior aspect of the tibial plateau. Small knee joint effusion is present. No suspicious radiopaque foreign body. IMPRESSION: No acute fracture with severe end-stage degenerative changes present. Chondrocalcinosis of the menisci with the suggestion of the lateral meniscus being laterally extruded. Small knee joint effusion. Dictated by: Dictated on workstation # [id number]
== END ==
LOC: RAD FS 11:27
PROVIDERS: ATTEND Nurse Practitioner Family
DX: M17.11 Unilateral primary osteoarthritis, right knee (principal); M11.261 Other chondrocalcinosis, right knee
CPT/HCPCS: 73562